=== PATIENT | female | born 1930 | race Caucasian/White ===

== ENCOUNTER 2016-12-30 12:00 | Inpatient (IN) | payer BC, MEDICARE ==
[2016-12-30] VITALS (7 sets, daily range): BP systolic 110–140; BP diastolic 48–96
[~2016-12-30] VITALS: Ht 154.9 cm; Wt 55.3 kg
[~2016-12-30 12:00] MED LIST: ALPHAGAN1 DROP BOTH EYES; ALTACE5 MG ORAL; ASPIRIN EC81 MG ORAL; COLACE100 MG ORAL; CORDARONE200 M1 ORAL; CYMBALTA30 MG ORAL; DORZOLAMIDE HCL10 M1 BOTH EYES; ELIQUIS2.5 MG ORAL; JANUVIA50 MG ORAL; LEVOTHYROXINE75 MCG ORAL; LIPITOR10 MG ORAL; PROTONIX40 MG ORAL; RAMIPRIL5 MG ORAL; ROZEREM8 MG ORAL; SIMVASTATIN40 MG ORAL; TIMOPTIC 0.5%1 DRO1 BOTH EYES; UNOBMED; VITAMIN D1000 UNI1 ORAL; ZETIA10 MG ORAL
[2016-12-30] MEDS ORDERED: METOPROLOL TART25 MG ORAL (12:13)
[2016-12-30] MEDS ORDERED: LASIX20 M1 ORAL (12:13)
[2016-12-30] MEDS ORDERED: MULTIVITAMINS1 EAC8 ORAL (12:13)
[2016-12-30] MEDS ORDERED: CYMBALTA20 MG ORAL (12:13)
--- NOTE | 2016-12-30 12:30 | Emergency Room Report ---
History of Present Illness General Chief Complaint: Multiple Trauma/Fall Present Illness HPI 86 YO Female presents to the ED brought by son c/o multiple recent falls, and found pt. down on ground this am. Son is concerned pt. may have sustained head injury. Pt. is unreliable historian with hx of TIA and embolic events with intermittent lapses in memory. Pt. 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 pt. has hx of DM, HTN, TIA, and liver cirrhosis. Pt currently on blood thinning medications. responsible democrat denies significant changes in mental status from baseline, and denies recent illnesses or fevers. Pt. denies musculoskeletal pain, bruises, CARPENTER, Dizziness, SOB, or CP. Son reports pt. has DM foot ulcer to the top of the right foot for which she was recently seen by roto rooter operator for, and skin tear with bruise to the right ankle and knee. Pt. wears diapers for incontinence. Denies numbness tingling or loss of sensation or gross motor movements of the extremities. Denies Palpitations, Significant changes in mental status, Changes in Vision, Sensation, paresthesias , or a sudden severe headache. (Rachel Holt P.A.) Allergies: Coded Allergies: No Known Allergies (Verified Allergy, Unknown, 03/12/10) Patient History Past Medical History: see triage record Past Surgical History: none Pertinent Family History: none Now: No Immunizations: UTD Reviewed Nursing Documentation: PMH: Agreed, PSxH: Agreed (Rachel Holt) Nursing Documentation-PMH Hx Cardiac Problems: Yes - Heart Murmers Hx Diabetes: Yes - Boarderline diabetic, left prosthatic Hx Gastrointestinal Problems: Yes (Rachel Holt P.AStar) Review of Systems All Other Systems: negative except mentioned in HPI (Rachel Holt P.AStar) Physical Exam Vital Signs Date Time Temp Pulse Resp B/P Pulse Ox O2 Delivery O2 Flow Rate FiO2 12/30/16 12:04 97.5 69 16 123/72 99 Room Air Sp02 EP Interpretation: reviewed, normal General Appearance: no apparent distress, alert, GCS 15, non-toxic Head: atraumatic Eyes: bilateral eye PERRL, bilateral eye normal inspection ENT: hearing grossly normal, normal pharynx, no angioedema, normal voice Neck: full range of motion, supple/symm/no masses Respiratory: lungs clear, normal breath sounds, speaking full sentences Cardiovascular #1: regular rate, rhythm, no edema Gastrointestinal: non tender, soft, no guarding, no rebound Rectal: deferred Genitourinary: normal inspection Musculoskeletal: back normal, normal range of motion, non-tender, no calf tenderness Neurologic: alert, oriented x3, responsive, motor strength/tone normal, sensory intact, speech normal Psychiatric: judgement/insight normal, memory normal, mood/affect normal Skin: normal color, no rash, warm/dry, well hydrated Lymphatic: no adenopathy (Rachel Holt) Medical Decision Making PA Attestation Dr. Howe is my supervising Physician whom patient management has been discussed with. (Rachel Holt) Medicare Attestation The history of Ann Edgar has been reviewed and management options for her have been examined and discussed by Alaina Howe. I have personally examined and interviewed the patient. Patient is alert troponin that will require a repeat followup (ALAINA HOWE D.O.) Diagnostic Impression: Primary Impression: Acute kidney injury Additional Impressions: UTI (urinary tract infection) Qualified Codes: N30.01 - Acute cystitis with hematuria Elevation of cardiac enzymes Non-ST elevation myocardial infarction (NSTEMI), initial care episode ER Course 86 YO Female presents to the ED brought by son c/o multiple recent falls, and found pt. down on ground this am. Son is concerned pt. may have sustained head injury. Pt. is unreliable historian with hx of TIA and embolic events with intermittent lapses in memory. Pt. 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 pt. has hx of DM, HTN, TIA, and liver cirrhosis. Pt currently on blood thinning medications. responsible democrat denies significant changes in mental status from baseline, and denies recent illnesses or fevers. Pt. denies musculoskeletal pain, bruises, CARPENTER, Dizziness, SOB, or CP. Son reports pt. has DM foot ulcer to the top of the right foot for which she was recently seen by roto rooter operator for, and skin tear with bruise to the right ankle and knee. Pt. wears diapers for incontinence. - pt. denies Loss of consciousness. -- Pt is unreliable source. Ddx considered but are not limited to Fracture, dislocation, contusion, concussion Sprain/Strain/Spasm, subdural hematoma/bleed, UTI, cardiac dysrhythmia or pathology. Vital signs: are WNL, pt. is afebrile H&PE are most consistent with increased in falls/instability, possible head trauma, in a pt. with cardiac hx will do cardiac evaluation with CT imaging. ORDERS: - CBC- Unremarkable -CMP- elevated BUN and CR, hypochloremia. -Troponin: ELEVATED 0.66 - CK-MB: ELEVATED -Total CK : WNL -UA: moderate bacteria, WBC's and elevated leukocytes indicating UTI. -EK bpm NSR with 1st degree AV block- no significant increase in KS interval from previous EKG, no acute ST changes per interpretation by Dr. Howe. CT HEAD NO CONTRAST: - X-RAY RIGHT KNEE 3 views: No fracture, dislocation, or soft tissue injury per soft read in the ED by Dr. Howe -CT HEAD NO CONTRAST: No evidence of acute fracture, hemorrhage, or intracranial process Per: official radiology report. - CXR: right lower lobe effusion, improved from previous imaging per preliminary read in the ED by Dr. Howe. ED INTERVENTIONS: - Pt placed on cardiac monitoring. - Rocephin IV for UTI. DISPOSITION: at this time pt. will be admitted to Dr. CLIFFORD, for NSTEMI, SALVATORE, UTI. Dr. CLIFFORD agreed to admit the pt. and to continue pt. care management. Labs Test 12/30/16 12:50 White Blood Count 9.8 K/UL (4.8-10.8) Red Blood Count 4.47 M/UL (4.20-5.40) Hemoglobin 13.0 G/DL (12.0-16.0) Hematocrit 41.2 % (37.0-47.0) Mean Corpuscular Volume 92 FL (80-99) Mean Corpuscular Hemoglobin 29.1 PG (27.0-31.0) Mean Corpuscular Hemoglobin Concent 31.6 G/DL (32.0-36.0) Red Cell Distribution Width 12.8 % (11.6-14.8) Platelet Count 223 K/UL (150-450) Mean Platelet Volume 7.4 FL (6.5-10.1) Neutrophils (%) (Auto) 78.1 % (45.0-75.0) Lymphocytes (%) (Auto) 6.9 % (20.0-45.0) Monocytes (%) (Auto) 11.6 % (1.0-10.0) Eosinophils (%) (Auto) 1.2 % (0.0-3.0) Basophils (%) (Auto) 2.2 % (0.0-2.0) Prothrombin Time 11.1 SEC (9.30-11.50) Prothromb Time International Ratio 1.1 (0.9-1.1) Activated Partial Thromboplast Time 28 SEC (23-33) Urine Color Pale yellow Urine Appearance Cloudy Urine pH 6.5 (4.5-8.0) Urine Specific [place] 1.010 (1.005-1.035) Urine Protein Negative (NEGATIVE) Urine Glucose (UA) Negative (NEGATIVE) Urine Ketones Negative (NEGATIVE) Urine Occult Blood 2+ (NEGATIVE) Urine Nitrite Negative (NEGATIVE) Urine Bilirubin Negative (NEGATIVE) Urine Urobilinogen Normal MG/DL (0.0-1.0) Urine Leukocyte Esterase 3+ (NEGATIVE) Urine RBC 5-10 /HPF (0 - 2) Urine WBC 60-80 /HPF (0 - 2) Urine Squamous Epithelial Cells Many /LPF (NONE/OCC) Urine Bacteria Moderate /HPF (NONE) Sodium Level 136 mEQ/L (135-145) Potassium Level 4.7 mEQ/L (3.4-4.9) Chloride Level 93 mEQ/L (98-107) Carbon Dioxide Level 27 mEQ/L (20-30) Anion Gap 16 (5-15) Blood Urea Nitrogen 30 mg/dL (7-23) Creatinine 1.3 mg/dL (0.5-0.9) Estimat Glomerular Filtration Rate mL/min (>60) Glucose Level 122 mg/dL (74-106) Calcium Level 10.1 mg/dL (8.6-10.2) Total Bilirubin 0.5 mg/dL (0.0-1.2) Aspartate Amino Transf (AST/SGOT) 26 U/L (5-40) Alanine Aminotransferase (ALT/SGPT) 15 U/L (3-33) Alkaline Phosphatase 117 U/L (35-104) Total Creatine Kinase 117 U/L (26-140) Creatine Kinase MB 5.2 ng/mL (< 3.8) Creatine Kinase MB Relative Index 4.4 Troponin I 0.66 ng/mL (<=0.30) Total Protein 7.7 g/dL (6.6-8.7) Albumin 4.3 g/dL (3.5-5.2) Globulin 3.4 g/dL Albumin/Globulin Ratio 1.2 (1.0-2.7) (Rachel Holt) EKG Diagnostic Results Rate: normal - 67 BPM Rhythm: NSR ST Segments: no acute changes PA Scribe Text KS of 222 1st degree AV block no significant KS interval increase from previous EKG per Dr. Howe interpretation. (Rachel Holt) Chest X-Ray Diagnostic Results EP Interpretation: Yes Number of Views: 1 PA Scribe Text right lower lobe effusion per interpretation in ED by Dr. Howe (Rachel Holt) Last Vital Signs Date Time Temp Pulse Resp B/P Pulse Ox O2 Delivery O2 Flow Rate FiO2 12/30/16 12:25 97.4 66 15 119/74 99 Room Air (Rachel Holt) Disposition: ADMITTED INPATIENT Condition: Serious Rachel Holt December 30, 2016 12:30 ALAINA HOWE D.O. December 30, 2016 13:21
[2016-12-30 13:05] LABS: BASOPHILS % (AUTO) 2.2 % (0.0-2.0); EOSINOPHILS % (AUTO) 1.2 % (0.0-3.0); LYMPHOCYTES % (AUTO) 6.9 % (20.0-45.0); MEAN CORPUSCULAR HEMOGLOBIN 29.1 PG (27.0-31.0); MEAN CORPUSCULAR HGB CONC 31.6 G/DL (32.0-36.0); MEAN CORPUSCULAR VOLUME 92 FL (80-99); MEAN PLATELET VOLUME 7.4 FL (6.5-10.1); MONOCYTES % (AUTO) 11.6 % (1.0-10.0); NEUTROPHILS % (AUTO) 78.1 % (45.0-75.0); PLATELET COUNT 223 K/UL (150-450); RED BLOOD COUNT 4.47 M/UL (4.20-5.40); RED CELL DISTRIBUTION WIDTH 12.8 % (11.6-14.8); WHITE BLOOD COUNT 9.8 K/UL (4.8-10.8)
[2016-12-30 13:17] LABS: ALANINE AMINOTRANSFERASE 15 U/L (3-33); ALBUMIN/GLOBULIN RATIO 1.2 (1.0-2.7); ANION GAP 16 (5-15); ASPARTATE AMINO TRANSFERASE 26 U/L (5-40); CALCIUM 10.1 mg/dL (8.6-10.2); CARBON DIOXIDE 27 mEQ/L (20-30); CHLORIDE 93 mEQ/L (98-107); CREATININE 1.3 mg/dL (0.5-0.9); HEMOLYSIS 6; POTASSIUM 4.7 mEQ/L (3.4-4.9); SODIUM 136 mEQ/L (135-145); TOTAL PROTEIN 7.7 g/dL (6.6-8.7)
[2016-12-30 13:19] LABS: TROPONIN I 0.66 ng/mL (<=0.30)
[2016-12-30 13:23] LABS: APPEARANCE,URINE CLOUDY; KETONES,URINE NEGATIVE (NEGATIVE); LEUKOCYTE ESTERASE ,URINE 3+ (NEGATIVE); NITRITE,URINE NEGATIVE (NEGATIVE); PH,URINE 6.5 (4.5-8.0); PROTEIN,URINE NEGATIVE (NEGATIVE); UROBILINOGEN,URINE NORMAL MG/DL (0.0-1.0)
[2016-12-30 13:27] LABS: CKMB 5.2 ng/mL (< 3.8)
[2016-12-30 13:28] LABS: INR 1.1 (0.9-1.1); PROTHROMBIN TIME 11.1 SEC (9.30-11.50)
[2016-12-30 13:33] LABS: BACTERIA,URINE MODERATE /HPF; SQUAMOUS EPITHELIAL CELL,UR MANY /LPF (NONE/OCC); WBC,URINE 60-80 /HPF (0 - 2)
[2016-12-30] MEDS ORDERED: cefTRIAXone 1 GM in D5W 55 ML IVPB ONE (15:45)
--- NOTE | 2016-12-30 16:26 | Geriatric Progress Note ---
Subjective Interval Events Patient living at home with intermittent help, likely insufficient structure and medication supervision. Last seen in office 12/07/16, noted some urinary frequency, labs ordered, but urine not obtained. Patient reportedly doing well, but has not allowed caregiver to be present more than few days a week. Son reports variable medication compliance, ? self-care. Several days ago, patient noted to have dark lesion on top of R 2nd toe near PIP joint. Seen by Dr. Roland, podiatry. Concern for vascular lesion. Being watched expectantly. Apparently patient may have fallen last evening, was found on floor by son this am. Noted to be more disoriented than baseline. Brought to ED. In ED, patient noted to have borderline elevated Troponin, MB, in setting of slightly increased Cr [1.1 -> 1.3]. Also with pyuria, bacteruria. Toe with similar appearance today. Also noted medial R ankle skin tear above malleolus. Excoriated areas on L buttock, along with erythema in perineal area. Mental status has improved since arriving at hospital. Admitted re ? ischemic episode, ? embolic episode, probable UTI with systemic sxs. 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 History of cirrhosis, with heavy ETOH many years ago, none recently. HTN Hyperlipidemia DM with neuropathy , s/p TAVR recently. RLE embolic complication during TAVR in setting of PAD. 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 P. a fib. Old CA. Hx of PUD with hemorrhage. Hx Fe deficiency. Gallstones. B presbycusis. Glaucoma. Meds: Duloxetine 20 daily Levothyroxine 0.075 daily Ramipril 10 daily Combigan 0.2/0.5% 1 gtt OU daily Januvia 25 daily Amiodarone 200 daily Eliquis 5 bid Rozerem 8 qhs prn D3 2000IU daily Zetia 10 daily Lipitor 10 qhs Lasix 20 daily Latanoprost 0.0005% 1 gtt OU qhs. NKA. Alert, slightly passive, misses conversation. Chest clear. CV RR Abd benign, no suprapubic tenderness RLE warm, medial distal skin tear with underlying darkness, no drainage, calor, edema. 2nd toe slightly cool, but no further cyanosis or demarcation. Other skin lesions superficial, associated with excoriation, MASD, no pressure ulceration. Mental status close to recent baseline, slightly slowed with no definite focality. Admit to telemetry, ischemia evaluation per Dr. Brown. Vascular surgery consult requested to evaluate whether urgent treatment indicated for toe vs. conservative watching. Unclear what patient's compliance re Eliquis has been, Dr. Brown has initiated heparin drip in the meantime. Check arterial study of RLE. Coverage with Ceftriaxone pending Urine C&S Gentle IV hydration. Continue outpatient medications otherwise. DNR/DNI confirmed with son. Prognosis, d/c options reviewed in depth with son, dtr-in-law. Dictated #[id number]. Geriatric Geriatric Last 24 Hour Vital Signs Date Time Temp Pulse Resp B/P Pulse Ox O2 Delivery O2 Flow Rate FiO2 12/30/16 16:15 97.6 96 23 120/63 100 12/30/16 12:35 97.4 66 15 119/74 99 Room Air 12/30/16 12:25 97.4 66 15 119/74 99 Room Air 12/30/16 12:04 97.5 69 16 123/72 99 Room Air Laboratory Tests Test 12/30/16 12:50 White Blood Count 9.8 K/UL (4.8-10.8) Red Blood Count 4.47 M/UL (4.20-5.40) Hemoglobin 13.0 G/DL (12.0-16.0) Hematocrit 41.2 % (37.0-47.0) Mean Corpuscular Volume 92 FL (80-99) Mean Corpuscular Hemoglobin 29.1 PG (27.0-31.0) Mean Corpuscular Hemoglobin Concent 31.6 G/DL (32.0-36.0) L Red Cell Distribution Width 12.8 % (11.6-14.8) Platelet Count 223 K/UL (150-450) Mean Platelet Volume 7.4 FL (6.5-10.1) Neutrophils (%) (Auto) 78.1 % (45.0-75.0) H Lymphocytes (%) (Auto) 6.9 % (20.0-45.0) L Monocytes (%) (Auto) 11.6 % (1.0-10.0) H Eosinophils (%) (Auto) 1.2 % (0.0-3.0) Basophils (%) (Auto) 2.2 % (0.0-2.0) H Prothrombin Time 11.1 SEC (9.30-11.50) Prothromb Time International Ratio 1.1 (0.9-1.1) Activated Partial Thromboplast Time 28 SEC (23-33) Urine Color Pale yellow Urine Appearance Cloudy Urine pH 6.5 (4.5-8.0) Urine Specific [place] 1.010 (1.005-1.035) Urine Protein Negative (NEGATIVE) Urine Glucose (UA) Negative (NEGATIVE) Urine Ketones Negative (NEGATIVE) Urine Occult Blood 2+ (NEGATIVE) H Urine Nitrite Negative (NEGATIVE) Urine Bilirubin Negative (NEGATIVE) Urine Urobilinogen Normal MG/DL (0.0-1.0) Urine Leukocyte Esterase 3+ (NEGATIVE) H Urine RBC 5-10 /HPF (0 - 2) H Urine WBC 60-80 /HPF (0 - 2) H Urine Squamous Epithelial Cells Many /LPF (NONE/OCC) H Urine Bacteria Moderate /HPF (NONE) H Sodium Level 136 mEQ/L (135-145) Potassium Level 4.7 mEQ/L (3.4-4.9) Chloride Level 93 mEQ/L (98-107) L Carbon Dioxide Level 27 mEQ/L (20-30) Anion Gap 16 (5-15) H Blood Urea Nitrogen 30 mg/dL (7-23) H Creatinine 1.3 mg/dL (0.5-0.9) H Estimat Glomerular Filtration Rate mL/min (>60) Glucose Level 122 mg/dL (74-106) H Calcium Level 10.1 mg/dL (8.6-10.2) Total Bilirubin 0.5 mg/dL (0.0-1.2) Aspartate Amino Transf (AST/SGOT) 26 U/L (5-40) Alanine Aminotransferase (ALT/SGPT) 15 U/L (3-33) Alkaline Phosphatase 117 U/L (35-104) H Total Creatine Kinase 117 U/L (26-140) Creatine Kinase MB 5.2 ng/mL (< 3.8) H Creatine Kinase MB Relative Index 4.4 Troponin I 0.66 ng/mL (<=0.30) *H Total Protein 7.7 g/dL (6.6-8.7) Albumin 4.3 g/dL (3.5-5.2) Globulin 3.4 g/dL Albumin/Globulin Ratio 1.2 (1.0-2.7) Height (Feet): 5 Height (Inches): 1.00 Weight (Pounds): 125 LUBNA CLIFFORD December 30, 2016 16:26
[2016-12-30] MEDS ORDERED: D5 1/4NS w/KCl 20mEq 1,000 ML IV SCH ×2 (17:00→19:30)
--- NOTE | 2016-12-30 17:00 | Consultation ---
Consult Note Consult Note Cardiology for Dr. Patino Full consult dictated #[id number] RUKHSANA HAZEL December 30, 2016 17:00
[2016-12-30] MEDS ORDERED: Heparin 25,000u/D5W 500ml 500 ML IV SCH ×2 (17:45)
[2016-12-30] MEDS ORDERED: Heparin 5000 units/ml inj IV ONE (17:45)
[2016-12-30] MEDS: Metoprolol 25mg tab ORAL SCH (20:30)
[2016-12-30] MEDS ORDERED: Ramelteon 8mg tab (Approved for Delirium use only) ORAL SCH (21:00)
[2016-12-30] MEDS ORDERED: Acetaminophen 500mg (ES) tab ORAL PRN (22:00)
[2016-12-31] VITALS: BP 91/42
[2016-12-31 01:14] LABS: TROPONIN I < 0.30 ng/mL (<=0.30)
--- NOTE | 2016-12-31 01:31 | Consultation ---
DATE OF CONSULTATION: CARDIOLOGY CONSULTATION: REASON FOR CONSULT: Elevated troponin level. History Of Present Illness: This is an 86-year-old woman with a history of TAVR and a right SSA stent last year, also history of diabetes, hypertension, and previous CVAs, who was brought to the emergency room after being found on the floor by her son. She is a fair historian. She does not recall details of the event. According to her son, he found her partially dressed this morning at about 10:30 hours. She reports that she has had a loss of balance, but at one point, states that she fainted. In the emergency room, labs were done including troponin which was 0.66 and cardiac evaluation was requested. The patient also complains of severe pain in the right second toe. She is status post left BKA following an arterial embolus. PAST MEDICAL HISTORY: As noted above. Also, history of hypothyroidism. MEDICATIONS: The patient is unsure of her medications, however, per the list she is on amiodarone 200 mg daily, apixaban 2.5 mg twice daily, atorvastatin 10 mg daily, brimonidine tartrate eyedrops t.i.d., vitamin D 2000 units daily, Colace 100 mg twice daily, brinzolamide eye drops three times a day, duloxetine 30 mg daily, Zetia 10 mg daily, Lasix 20 mg daily, levothyroxine 75 mcg daily, metoprolol 25 mg b.i.d., multivitamin one daily, Protonix 40 mg daily, Rozerem 8 mg nightly, Januvia 50 mg before breakfast, and timolol eye drops t.i.d. ALLERGIES: No known drug allergies. SOCIAL HISTORY: The patient is a nonsmoker and does not drink alcohol. She lives at home by herself and has assistance part-time from a caregiver. PHYSICAL EXAMINATION: VITAL SIGNS: Blood pressure is 144/72, pulse 69 regular, respirations 16, and afebrile. GENERAL: Alert, well-developed elderly white female, in no acute distress. HEENT: Normocephalic and atraumatic. Pupils are equal, round, and reactive to light. Sclerae anicteric. Oral mucosa are moist. NECK: Supple. There is no jugular venous distention. No carotid bruits. LUNGS: Clear to auscultation bilaterally. HEART: Regular S1 and S2 with a 1/6 systolic ejection murmur heard at the left upper sternal border. No S3, S4, or rubs. ABDOMEN: Soft and nontender. No palpable mass. EXTREMITIES: Left BKA. Right second toe with 0.5 cm round discoloration. Foot is cool. Toe tender. Distal lower extremity pulses diminished on the right. LABORATORY AND DIAGNOSTIC DATA: Troponin 0.66. Potassium 4.3, BUN 30, and creatinine 1.3. Hemoglobin 13, hematocrit 41, and white blood count 9800. EKG shows sinus rhythm at a rate of 68 beats per minute, first-degree AV block, poor R progression V1 to V3. Chest x-ray will review. ASSESSMENT AND RECOMMENDATIONS: This is an 86-year-old woman with multiple medical problems as outlined above, who was admitted with a fall versus syncope. She has a mild elevation of troponin which is likely due to demand ischemia. She has no anginal symptoms and no ischemic EKG changes. She appears possibly with an ischemic right second toe possibly embolic. I would consider changing Eliquis to heparin and would obtain a vascular surgical evaluation. Serial troponin levels and EKGs will be obtained to rule out an acute coronary syndrome though the suspicion is fairly low. An echo will be obtained to assess left ventricular function, rule out left ventricular thrombus and also assess valves. Further recommendations will be made based on her clinical course. Dr. Patino will continue to follow her when he returns on 01/02/2017. Kerri Brown M.D. DR: Jaison JOB#: [id number] CC:
[2016-12-31] MEDS ORDERED: Heparin 25,000u/D5W 500ml 500 ML IV SCH ×2 (02:30→11:30)
--- NOTE | 2016-12-31 02:31 | History and Physical Report ---
DATE OF ADMISSION: 12/30/2016 The patient is admitted on 12/30/2016. IDENTIFICATION: The patient is an 86-year-old woman who was found on the floor of her apartment by her son with increased disorientation. HISTORY OF PRESENT ILLNESS: This is a patient with multiple chronic illnesses, who has done relatively well. She recently, after extended hospitalization and [facility] facility course, returned to her apartment where she initially had full-time care, but subsequently has downgraded that to part-time care. With this downgrading, there has been concern the patient may not have adequate supervision and medication compliance at home. However, the patient was reported to have been doing relatively well. She was last seen in the office on 12/07/2016. During that visit, there was a notation of increased urinary frequency without dysuria. Laboratories were ordered including urine studies, but when laboratories were completed apparently a urine has not been obtained possibly due to inability to comply with the collection on the part of the patient. In any event, the patient still had no specific complaints until the middle of last week when she was noted to have a dark small ulcerative type lesion on the top of her right second toe near the PIP joint. She was referred to Dr. Melany Roland, podiatric solar consultant who evaluated the patient and felt that there might be an element of ischemia in the setting of prior angioplasty and known peripheral arterial disease. However, she felt the lesion was sufficiently benign looking with adequate warmth to the foot and no clear evidence of a significant volume of ischemia that it could be managed expectantly with local therapy applied to the ulceration. Apparently, last evening when the patient was alone, she may have fallen. She reports this, although her details are sufficiently inconsistent to make reliance on any specific details problematic. This morning, she was found on the floor by her son. He noted her to be more disoriented than her baseline with some hallucinatory or delusional ideation. Because of these changes, the patient was brought to the emergency department. In the emergency department, the patient is noted to have a borderline elevated troponin, borderline MB fraction in the setting of slightly increased creatinine with baseline of 1.1, elevated to 1.3. She was also noted to have urinalysis with pyuria, leukocyte esterase, and bacteriuria. She had evidence of the toe lesion, which appeared fairly similar to the prior presentation and there was also a newly noted right medial ankle skin tear just above malleolus with underlying darkness suggesting bleeding associated with the lesion. There is no discharge, edema, or focal warmth associated. Skin lesions also included perineal erythema and excoriated areas primarily on the left buttock, but also on the right. The patient's mental status improved somewhat during her evaluation in the emergency department. Given these various findings, the patient was admitted for evaluation of possible cardiac ischemic episode, possible embolic and peripheral arterial insufficiency episode, and probable urinary tract infection with likely systemic symptoms. Currently, in the emergency department, the patient was noted to be alert, perhaps slightly slowed from her baseline, but not in any distress with a fairly normal speech pattern and no clear evidence of significant disorientation beyond her baseline. The patient denies chest pain or palpitations. She denied dysuria or urinary symptoms. She denied difficulty with gastrointestinal symptoms or change in bowel or bladder pattern. She also denied respiratory symptoms. Again, all these denials may be somewhat suspect, given the patient's patchy cognitive loss. The patient's son is unaware of any additional medical changes beyond what is described above. PAST MEDICAL HISTORY: 1. 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 Consider element of prior alcohol use. Consider element of possible primary degenerative component. 2. History of cirrhosis without hepatocellular enzyme abnormalities with a distant history of heavy alcohol use many years ago, but no significant use recently. 3. Hypertension. 4. Hyperlipidemia. 5. Diabetes mellitus with history of neuropathic symptoms. 6. Aortic stenosis, status post recent TAVR. 7. Right lower extremity embolic complication during TAVR in the setting of established peripheral arterial disease requiring angioplasty. 8. 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 9. Paroxysmal atrial fibrillation. 10. History of old myocardial infarction. 11. 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 12. History of peptic ulcer disease with hemorrhage. 13. History of iron deficiency requiring Venofer infusions. 14. Gallstones. 15. Bilateral presbycusis. 16. Glaucoma. MEDICATIONS: Current medications, duloxetine 20 mg daily, levothyroxine 0.075 mg daily, ramipril 10 mg daily, Combigan 0.2/0.5% one drop OU daily, Januvia 25 mg daily, amiodarone 200 mg daily, Eliquis 5 mg twice a day, Rozerem 8 mg at bedtime as needed, vitamin D3 2000 units daily, Zetia 10 mg daily, Lipitor 10 mg at bedtime, Lasix 20 mg daily, and latanoprost 0.0005% one drop each eye at bedtime. ALLERGIES: No known allergies. 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 She lived in [place], moving to [place] in 1999 after her left below the knee amputation. She has been for some 25 years. Her worked in the foreign service and they traveled extensively in the past. The patient smoked for 44 years, one and half packs per day, which was discontinued when her was diagnosed with lung cancer. She has signed a post with DNR and DNI status, but will request conventional therapies. FAMILY HISTORY: Notable for diabetes mellitus in her mother. Her father was exposed to gas in World War I and at the age of 47. She has three children, who reportedly alive and well. REVIEW OF SYSTEMS: On detailed review of systems, due to the patient's current mental status, details are not obtainable. Her responses are generally as described above. PHYSICAL EXAMINATION: VITAL SIGNS: The patient's blood pressure is 120/63, heart rate was 96, respiratory rate was 23, but subsequently 16, temperature 97.6, and oxygen saturation is 100% on room air. GENERAL: The patient is a well-developed woman, with a somewhat flattened affect and slightly slowed, but not in acute distress. HEENT: Head and neck revealed normocephalic and atraumatic skull. Sclerae appeared anicteric. The oropharynx revealed minimally dry mucosa. NECK: Revealed normal range of motion without masses. CHEST: Clear to auscultation. CARDIOVASCULAR: Revealed a regular rhythm. ABDOMEN: Revealed normal bowel sounds. Soft and nontender without masses or organomegaly. No suprapubic tenderness was elicited. EXTREMITIES: Revealed the prior below the knee amputation on the left side. Right side revealed a warm foot with the skin tear and the second toe dorsal ulceration as described above. Her other skin lesions included her superficial buttocks erythema and excoriation, which appear more consistent with moisture associated damage and physical excoriations and pressure ulceration. NEUROLOGIC: Detailed examination was not attempted, however, speech was consistent with baseline in terms of word choice and fluency and her mentation also appears to be grossly compatible with baseline. There is no clear evidence of any acute focality. IMPRESSION: The patient presents with what appears to be an episode of altered mentation associated with fall. The most likely underlying etiology is probably urinary tract infection with some systemic symptomatology including delirium and generalized weakness, given that there were some initial symptoms as long as three weeks ago and also given the lack of impressive findings or any other series on her history and examination. The urinary tract infection will be treated empirically with ceftriaxone, which was begun in the emergency room pending culture results. Of note is that the patient has a borderline leukocytosis, but no significant elevation of white count making a severe septic infection much likely despite the systemic symptoms that are hypothesized. The patient does have mild elevation of cardiac markers and the possibility of an ischemic event needs to be considered. The patient was initially evaluated by Dr. Brown, who actually feels that the chances of an ischemic event are relatively low and that any component seen is probably mild demand ischemia associated with the infectious episode. The patient's toe is also of concern. Dr. Brown is concerned about embolic phenomenon with some impending progressive ischemia. After discussion and the additional history from the patient's son, the patient may have inadvertently been fairly noncompliant with her Eliquis as well as her other medications. It was decided to begin the patient on intravenous heparin for the time being until the overall situation is more completely evaluated. An arterial study of the right lower extremity has been ordered and Vascular Surgery consultation has been requested. The patient will be gently hydrated, given the fact that she likely had no oral intake at least overnight and her usual home medications will be continued except for the Eliquis and the diuretic. The patient's situation was discussed in detail with the patient, her son, and her [id number]. There was confirmation of the patient's DNR, DNI status per her prior election and in addition, there was an extended discussion about the patient's current functional capabilities and the need for increased supervision as well as potential long-term discharge options. The patient and family concur with the present approach at this time. Additional interventions will be considered depending on the patient's response to therapy. Marlon Bauman M.D. DR: RENNY JOB#: [id number] CC: ALEX
[2016-12-31 04:05] VITALS: BP 97/38
[2016-12-31] MEDS ORDERED: sitaGLIPtin 25mg tab ORAL SCH (06:30)
[2016-12-31 08:00] VITALS: BP 103/47
[2016-12-31] MEDS: Metoprolol 25mg tab ORAL SCH (09:00)
[2016-12-31] MEDS ORDERED: Vitamin D 1000 IU Tab ORAL SCH (09:00)
[2016-12-31] MEDS ORDERED: Multivitamin w/Minerals tab ORAL SCH (09:00)
[2016-12-31] MEDS ORDERED: Amiodarone 200mg tab ORAL SCH (09:00)
[2016-12-31] MEDS ORDERED: Vitamin B-12 500mcg tab ORAL SCH (09:00)
--- NOTE | 2016-12-31 09:15 | Diagnostic Imaging Report ---
Indication: Headache Technique: Contiguous 5 mm thick transaxial imaging of the head obtained in a Siemens Sensation [address] scanner. Soft tissue and bone windows generated. Total Dose length Product (DLP): [address] Dose Index Volume (CTDIvol): 70.38 mGy Comparison: 02/10/16 Findings: There is mild prominence of the ventricles, basal cisterns, and cerebral sulci consistent with atrophy. Mild, nonspecific, white matter hypoattenuation is noted throughout the brain consistent with chronic small vessel disease. A few parenchymal calcifications are present within the brain. These are not seen previously. Findings are nonspecific. Ossifications could be due to cysticercosis or old granulomatous disease. There is no midline shift, edema, acute hemorrhage, mass effect, or abnormal extra-axial fluid collections. Bones and extra osseous soft tissues are unremarkable. Impression: No acute intracranial bleed, mass effect or edema. Mild atrophy of the brain. Nonspecific white matter hypoattenuation probably due to chronic small vessel disease. Calcifications in the brain parenchyma. Nonspecific. Cysticercosis versus old granulomatous disease. Dr. Melendez has communicated the preliminary results to the Emergency Department. There are no significant discrepancies. The CT scanner at [facility] is accredited by the [employer] and the scans are performed using dose optimization techniques as appropriate to a performed exam including Automatic Exposure control.
[2016-12-31] MEDS ORDERED: Norco 5mg/325mg tab ORAL PRN (10:15)
[2016-12-31 10:28] LABS: TROPONIN I < 0.30 ng/mL (<=0.30)
--- NOTE | 2016-12-31 10:30 | Diagnostic Imaging Report ---
Indication: Pain 3 views of the right knee were obtained. Findings: No acute fracture, malalignment, or joint effusion are identified. Joint space is relatively well-maintained. Bone mineralization is diffusely decreased. Impression: No acute injury
--- NOTE | 2016-12-31 10:35 | Diagnostic Imaging Report ---
Indication: Chest Pain Comparison: 05/29 16 A single view chest radiograph was obtained. Findings: No definite infiltrate or pulmonary vascular congestion identified. There is a stent in the area of the aortic root/valve. The heart is enlarged. There is a probable hiatal hernia. The aorta is mildly enlarged consistent with atherosclerotic vascular disease. The bones are osteopenic. Impression: No acute disease
[2016-12-31] MEDS: Brimonidine 0.2% Opth Sol BOTH EYES SCH ×2 (10:39→13:32)
[2016-12-31] MEDS: Timolol 0.5% Op Soln 2.5ml BOTH EYES SCH ×2 (10:39→13:32)
[2016-12-31] MEDS ORDERED: Heparin 5000 units/ml inj IV ONE (11:30)
[2016-12-31 12:00] VITALS: BP 98/43
[2016-12-31] MEDS ORDERED: Norco 10mg/325mg tab ORAL PRN (13:30)
--- NOTE | 2016-12-31 13:55 | Geriatric Progress Note ---
Assessment/Plan Problems: (1) Claudication of lower extremity (2) Critical lower limb ischemia (3) UTI (urinary tract infection) (4) Elevation of cardiac enzymes (5) Severe calcific aortic valve stenosis (6) Moderate aortic regurgitation (7) Diabetes mellitus type 2, noninsulin dependent (8) HTN (hypertension) (9) Paroxysmal atrial fibrillation (10) Liver cirrhosis (11) Hyperlipidemia (12) History of tobacco use (13) Diabetic neuropathy (14) Coronary arteriosclerosis (15) Diabetic neuropathy associated with type 2 diabetes mellitus (16) History of alcohol use (17) History of gastrointestinal bleeding Assessment/Plan Metabolic encephalopathy, UTI appear to be responding to tx. ? newly symptomatic RLE ischemia, ? embolic or thrombotic due to progression of disease +/- inadvertent non-compliance. Increase analgesia. Increase fluids, hold metoprolol due to low bp, low hr to attempt improved perfusion. Await vascular evaluation. Continue other tx. Discussed with staff. Reviewed with patient and son, dtr-in-law at bedside. Await potential transfer to [facility] for evaluation of endovascular procedure. Discussed with: patient, family, hospital staff Subjective Interval Events Patient c/o new episodic pain, cramplike, localizing to area just distal to popliteal fossa. Preliminary report of arterial study was critical ischemia at rest. Note current heart rates and bp on low side. Patient did not eat well this am. No SOB, chest pain. Mentation appears close to normal. Spoke with Dr. Stevens, who will see in vascular surgery consultation. Dr. Brown has placed on transfer list. Constitutional: Reports: chills, fever Respiratory: Reports: shortness of breath Cardiovascular: Reports: chest pain Gastrointestinal/Abdominal: Reports: abdominal pain Genitourinary: Reports: dysuria Geriatric Geriatric Last 24 Hour Vital Signs Date Time Temp Pulse Resp B/P Pulse Ox O2 Delivery O2 Flow Rate FiO2 12/31/16 12:00 56 12/31/16 12:00 97.8 58 19 98/43 99 Room Air 12/31/16 09:00 54 105/47 12/31/16 08:00 51 12/31/16 08:00 97.8 56 20 103/47 100 Room Air 12/31/16 04:05 96.6 53 19 97/38 100 Room Air 12/31/16 04:00 53 12/31/16 00:00 98.1 57 17 91/42 94 Room Air 12/31/16 00:00 58 12/30/16 20:30 64 97/50 12/30/16 20:04 97.7 62 18 110/48 96 Room Air 12/30/16 20:00 62 12/30/16 17:30 97.2 60 18 111/53 98 Room Air 12/30/16 16:49 68 17 140/96 98 Room Air 12/30/16 16:49 97.6 68 17 140/96 98 Room Air 12/30/16 16:15 97.6 96 23 120/63 100 12/30/16 14:35 65 16 119/74 100 Room Air Intake and Output 12/30/16 12/31/16 19:00 07:00 Intake Total 13.281 ml 742.811 ml Balance 13.281 ml 742.811 ml Intake Oral 60 ml IV Total 13.281 ml 682.811 ml # Voids 3 Laboratory Tests Test 12/31/16 00:30 12/31/16 09:40 12/31/16 10:40 Activated Partial Thromboplast Time 122 SEC (23-33) H 45 SEC (23-33) H Troponin I < 0.30 ng/mL (<=0.30) < 0.30 ng/mL (<=0.30) Current Medications Medications (Trade) Dose Ordered Sig/Esther Route PRN Reason Start Time Stop Time Status Last Admin Dose Admin Acetaminophen 1000 mg 1,000 mg Q6H PRN ORAL Mild Pain/Temp > 100.5 12/30/16 22:00 01/29/17 21:59 12/31/16 04:33 Acetaminophen/ Hydrocodone Bitart (Ecorse 10/325) 1 ea Q4H PRN ORAL For Pain 12/31/16 13:30 01/07/17 13:29 UNV Amiodarone HCl (Cordarone) 200 mg DAILY ORAL 12/31/16 09:00 01/30/17 08:59 Atorvastatin Calcium (Lipitor) 10 mg BEDTIME ORAL 12/30/16 21:00 01/29/17 20:59 12/30/16 20:26 Brimonidine Tartrate (Alphagan) 1 drop TID BOTH EYES 12/31/16 09:00 01/30/17 08:59 12/31/16 13:32 Ceftriaxone Sodium/Dextrose (Rocephin/D5W) 55 ml @ 110 mls/hr Q24H IVPB 12/31/16 16:00 01/07/17 15:59 Cyanocobalamin 1000 mcg 1,000 mcg DAILY ORAL 12/31/16 09:00 01/30/17 08:59 12/31/16 10:37 Dextrose/ Electrolytes (D5 0.25%NS w/ KCl 20mEq) 1,000 ml @ 75 mls/hr [id number] IV 12/31/16 19:30 01/30/17 19:29 UNV Duloxetine HCl (Cymbalta) 20 mg DAILY ORAL 12/31/16 09:00 01/30/17 08:59 12/31/16 10:37 EZETIMIBE (Zetia) 10 mg BEDTIME ORAL 12/30/16 21:00 01/29/17 20:59 12/30/16 21:23 Heparin Sodium/ Dextrose 500 ml @ 12.174 mls/ hr adjust per protocol IV 12/31/16 11:30 01/30/17 11:29 12/31/16 11:56 Latanoprost (Xalatan) 1 drop BEDTIME BOTH EYES 12/30/16 21:00 01/29/17 20:59 12/30/16 20:26 Levothyroxine Sodium (Synthroid) 75 mcg ACBREAKFAST ORAL 12/31/16 06:30 01/30/17 06:29 12/31/16 06:14 Multivitamins Therapeutic (Therapeutic Multivitamin) 1 ea DAILY ORAL 12/31/16 09:00 01/30/17 08:59 12/31/16 10:38 Pantoprazole (Protonix) 40 mg DAILY ORAL 12/31/16 09:00 01/30/17 08:59 12/31/16 10:37 Ramelteon (Rozerem) 8 mg QHS ORAL 12/30/16 21:00 01/29/17 20:59 12/30/16 20:26 Sitagliptin Phosphate (Januvia) 25 mg ACBREAKFAST ORAL 12/31/16 06:30 01/30/17 06:29 12/31/16 06:14 Timolol Maleate (Timoptic 0.5% Op Soln) 1 drop TID BOTH EYES 12/31/16 09:00 01/30/17 08:59 12/31/16 13:32 Vitamin D (Vitamin D) 2,000 intlu DAILY ORAL 12/31/16 09:00 01/30/17 08:59 12/31/16 10:37 Height (Feet): 5 Height (Inches): 1.00 Weight (Pounds): 122 General Appearance: alert, non-toxic Head: normocephalic Eyes: bilateral anicteric ENT: normal voice Neck: full range of motion, no mass Respiratory: lungs clear Cardiovascular: regular rate, rhythm Gastrointestinal: normal bowel sounds, non tender, soft, no mass, no organomegaly, non-distended Musculoskeletal: other - no clear area of tenderness to palpation. Palpable venous vasculature without tenderness. R foot lesion about the same. Edema: no edema noted Generalized LUBNA CLIFFORD December 31, 2016 13:55
--- NOTE | 2016-12-31 15:03 | Cardiology Progress Note ---
Assessment/Plan Status: not improved, deteriorating Status Narrative Mrs Edgar is an 86 yo woman w hx of , s/p TAVR, PVD, s/p L BKA who was adm w/ fall vs syncopal episode. She had a mild troponin elevation on adm - likely demand ischemia. Noninvasive vascular studies were performed on the RLE to evaluate R second toe pain. R common femoral occlusion was reported. She was evaluated by Dr. Margarito Stevens/ vascular surgery and started on iv heparin. Assessment/Plan discussed w/ Drs. Stevens and Mitul. She will be transferred to [facility] for emergency vascular surgical intervention. Subjective ROS Limited/Unobtainable: No Subjective Events noted. Mrs. Edgar c/o R foot pain. Objective Last 24 Hour Vital Signs Date Time Temp Pulse Resp B/P Pulse Ox O2 Delivery O2 Flow Rate FiO2 12/31/16 12:00 56 12/31/16 12:00 97.8 58 19 98/43 99 Room Air 12/31/16 09:00 54 105/47 12/31/16 08:00 51 12/31/16 08:00 97.8 56 20 103/47 100 Room Air 12/31/16 04:05 96.6 53 19 97/38 100 Room Air 12/31/16 04:00 53 12/31/16 00:00 98.1 57 17 91/42 94 Room Air 12/31/16 00:00 58 12/30/16 20:30 64 97/50 12/30/16 20:04 97.7 62 18 110/48 96 Room Air 12/30/16 20:00 62 12/30/16 17:30 97.2 60 18 111/53 98 Room Air 12/30/16 16:49 68 17 140/96 98 Room Air 12/30/16 16:49 97.6 68 17 140/96 98 Room Air 12/30/16 16:15 97.6 96 23 120/63 100 General Appearance: WD/WN, alert, mild distress EENT: PERRL/EOMI Neck: supple, no JVD Rhythm: NSR Cardiovascular: normal rate, regular rhythm, systolic murmur - i /vi LAVELLE at LSB. no s3. s4 Respiratory/Chest: lungs clear Abdomen: non tender, soft Extremities: other - L BKA. R foot cool, discolored. no palp pulse femoral- dp Intake and Output 12/30/16 12/31/16 19:00 07:00 Intake Total 13.281 ml 742.811 ml Balance 13.281 ml 742.811 ml Intake Oral 60 ml IV Total 13.281 ml 682.811 ml # Voids 3 Laboratory Tests Test 12/31/16 00:30 12/31/16 09:40 12/31/16 10:40 Activated Partial Thromboplast Time 122 SEC (23-33) H 45 SEC (23-33) H Troponin I < 0.30 ng/mL (<=0.30) < 0.30 ng/mL (<=0.30) RUKHSANA HAZEL December 31, 2016 15:03
[2016-12-31 16:00] VITALS: BP 100/45
[2016-12-31] MEDS ORDERED: cefTRIAXone 1 GM in D5W 55 ML IVPB SCH (16:00)
[2016-12-31] MEDS ORDERED: Tubing IV Secondary IV ONE (17:14)
--- NOTE | 2016-12-31 17:37 | Geriatric Progress Note ---
Assessment/Plan Problems: (1) Claudication of lower extremity (2) Critical lower limb ischemia (3) UTI (urinary tract infection) (4) Elevation of cardiac enzymes (5) Severe calcific aortic valve stenosis (6) Moderate aortic regurgitation (7) Diabetes mellitus type 2, noninsulin dependent (8) HTN (hypertension) (9) Paroxysmal atrial fibrillation (10) Liver cirrhosis (11) Hyperlipidemia (12) History of tobacco use (13) Diabetic neuropathy (14) Coronary arteriosclerosis (15) Diabetic neuropathy associated with type 2 diabetes mellitus (16) History of alcohol use (17) History of gastrointestinal bleeding Subjective Interval Events Transfer/DCSummary Dictated #[id number]. Geriatric Geriatric Last 24 Hour Vital Signs Date Time Temp Pulse Resp B/P Pulse Ox O2 Delivery O2 Flow Rate FiO2 12/31/16 16:00 50 12/31/16 16:00 97.9 51 20 100/45 100 Room Air 12/31/16 12:00 56 12/31/16 12:00 97.8 58 19 98/43 99 Room Air 12/31/16 09:00 54 105/47 12/31/16 08:00 51 12/31/16 08:00 97.8 56 20 103/47 100 Room Air 12/31/16 04:05 96.6 53 19 97/38 100 Room Air 12/31/16 04:00 53 12/31/16 00:00 98.1 57 17 91/42 94 Room Air 12/31/16 00:00 58 12/30/16 20:30 64 97/50 12/30/16 20:04 97.7 62 18 110/48 96 Room Air 12/30/16 20:00 62 Intake and Output 12/30/16 12/31/16 19:00 07:00 Intake Total 13.281 ml 742.811 ml Balance 13.281 ml 742.811 ml Intake Oral 60 ml IV Total 13.281 ml 682.811 ml # Voids 3 Laboratory Tests Test 12/31/16 00:30 12/31/16 09:40 12/31/16 10:40 Activated Partial Thromboplast Time 122 SEC (23-33) H 45 SEC (23-33) H Troponin I < 0.30 ng/mL (<=0.30) < 0.30 ng/mL (<=0.30) Height (Feet): 5 Height (Inches): 1.00 Weight (Pounds): 122 LUBNA CLIFFORD December 31, 2016 17:37
[2016-12-31] MEDS ORDERED: D5 1/4NS w/KCl 20mEq 1,000 ML IV SCH (19:30)
--- NOTE | 2017-01-01 00:15 | Consultation ---
DATE OF CONSULTATION: REFERRING PHYSICIAN: I was asked to see this patient by Dr. Marlon Bauman to evaluate right leg ischemia. 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 In July 2016, she had an aortic valve replacement vascularly and tolerated that fairly well. However, postoperatively, she developed a right leg embolus and most likely an embolus to her carotid circulation. She had developed a stroke, most likely a right hemispheric stroke and had significant recovery during the past many months. Her right leg required a stent placement, but the ischemia was resolved. The day before admission to [facility], she was found on the floor unconscious and brought to the ER. It was noted that she had a cool right foot with decreased sensation and motor. Duplex scanning was carried out and documented that she had a right common femoral occlusion with monophasic flow. PAST MEDICAL HISTORY: Diabetes mellitus and now a hypotension. She has had a stroke and has not had evidence of coronary artery disease. PHYSICAL EXAMINATION: GENERAL: She is responsive and can converse. NECK: There are no carotid bruits. HEART: Cardiac rate is 54 and rhythm is regular. There are occasional premature beats. ABDOMEN: Examination of the abdomen does not reveal abdominal mass or tenderness. EXTREMITIES: There is a well-healed left leg amputation below the knee. On the right, no pulses are felt whatsoever including the right femoral pulse. The right foot is ruborous and . She cannot move or dorsiflex the right foot. NEUROLOGIC: She does respond to questions appropriately. ASSESSMENT AND PLAN: This lady has acute ischemia of her right leg and needs immediate angiography and surgery. Thank you. Margarito Stevens M.D. DR: ANAHI JOB#: [id number] CC:
--- NOTE | 2017-01-01 07:01 | Discharge Summary ---
DATE OF ADMISSION: 12/30/2016 DATE OF DISCHARGE: 12/31/2016 DIAGNOSES: 1. Critical right lower extremity ischemia with increasing ischemic pain at rest. 2. Possible embolic area of infarction to the dorsum of the right second toe. 3. Noninvasive arterial duplex study of the right lower extremity exhibiting diffuse severe stenosis with areas of monophasic waveform and proximal posterior tibial occlusion with some distal reconstitution. 4. Apparent urinary tract infection on empiric ceftriaxone therapy. 5. Metabolic encephalopathy, multifactorial. 6. Baseline mild cognitive impairment versus very early dementia primarily cerebrovascular etiology consider element of prior alcohol abuse. Consider element of possible primary degenerative component. 7. History of cirrhosis without hepatocellular enzyme abnormalities with distant history of heavy alcohol use. 8. Hypertension. 9. Hyperlipidemia. 10. Diabetes mellitus with neuropathic symptoms. 11. Aortic stenosis status post recent transcatheter aortic valve replacement. 12. Right lower extremity embolic complication during transcatheter aortic valve replacement in the setting of established peripheral arterial disease requiring angioplasty. 13. 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 14. Paroxysmal atrial fibrillation. 15. History of old myocardial infarction. 16. 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 17. History of peptic ulcer disease with hemorrhage. 18. History of iron deficiency requiring Venofer infusion. 19. Gallstones. 20. Bilateral presbycusis . 21. Glaucoma. HISTORY OF PRESENT ILLNESS: The patient is an 86-year-old woman who was found on the floor in her apartment by her son with increased disorientation. Details of the history and physical examination are per the dictation of 12/30/2016. HOSPITAL COURSE: The patient was admitted and placed on ceftriaxone empirically for apparent urinary tract infection. She appeared to improve considerably with her mental status approaching her baseline. Because of uncertainty about her compliance with Eliquis, the patient was placed on intravenous heparin drip. Given the concerns about possible ischemia to the right lower extremity, arterial duplex study was done which revealed a 76 to 90% stenosis virtually throughout the main vessels of the lower extremity with evidence of monophasic waves and area of the proximal posterior tibial artery which is found to be occluded with some distal reconstitution. On the evening of the patient's admission and increasing through the next morning, the patient began to complain of a moderately intense somewhat cramp like pain in the right lower extremity. She had difficulty localizing the pain, but somewhat generally described the symptoms as being in the area of the posterior leg just distal to the popliteal fossa. Beside the right second toe dorsal skin lesion which appeared potentially embolic, the patient also had a skin tear on the medial surface of the ankle just above the malleolus, which appeared dry, maroonish in color with no discharge, edema, or warmth. Given the findings on the vascular examination, a vascular surgery consultation was requested. The patient was seen by Dr. Margarito Stevens, who felt that the patient was exhibiting findings consistent with acute limb-threatening ischemia with decreased sensation and decreased range of motion in the foot. He felt that emergent angiography with potential endovascular or open surgical procedure would be required to try and salvage the leg, which would be extremely important in terms of mobility given the patient's pre-existing left [id number] amputation. There was extended discussion with the patient and her family as well as Dr. Stevens, Dr. Brown, multiple calls and arrangements were made through the [facility] and contact with the vascular surgery service at [facility]. The patient is now being transferred to [facility] as a higher level of care to both undergo imaging and also potentially a surgical procedure either open or endovascular. On the day of the transfer, the patient was noted to have somewhat diminished blood pressures and also heart rate in the 50s. Therefore, her metoprolol was discontinued since it was felt that this could be potentially adversely affecting the perfusion of the extremity. The patient is still on amiodarone for rate and rhythm control. The patient was also given somewhat more intravenous fluids with a rate of 75 mL an hour. This was done both to raise intravascular volume and hopefully the perfusion pressures, but also because the patient has had poor intake since getting to the hospital. The transfer is being done to the [facility] in an ACLS ambulance so that the heparin drip can be continued. Dr. Brown, covering for Dr Patino, will be the admitting physician at [facility] with appropriate interventional and vascular surgery support. As stated, the situation has been discussed in detail with the patient, her son, and her [id number]. The patient is DNR/DNI but does wish to maintain her functional mobility and quality of life with respect to mobility as much as possible. On admission, there was also some concern about the possibility of a cardiac ischemic event. However, Dr. Brown felt there were no significant EKG changes and the mild elevation of troponin and MB fraction likely represented mild demand ischemia associated with her other problems. As stated the patient continues on empiric ceftriaxone, pending culture results to further narrow therapy for the urinary tract infection. Marlon Bauman M.D. DR: Nestor JOB#: [id number] CC: ALEX
--- NOTE | 2017-01-02 07:57 | Cardiology Report ---
APPROVED REPORT EKG Measurement Heart [id number] [place] [id number] Sinus rhythm with 1st degree AV block Anteroseptal infarct, age undetermined Abnormal ECG
--- NOTE | 2017-01-02 12:36 | Diagnostic Imaging Report ---
APPROVED REPORT CPT Code: 78264 Symptoms Rest Pain : PAD Comments: Rt medial ulcer above the medial malleolus Risk Factors TIA/CVA History Cardiac Disease VELOCITY MEASUREMENTS AND DOPPLER WAVEFORM ANALYSIS RIGHTcm/secWaveformSeverityLEFTcm/secWaveformSeverity Com Fem Art. 68MonophasicSevere 76-99%Com Fem Art. Prof Fem Art. 68MonophasicSevere 76-99%Prof Fem Art. Fem Art Prox. 27ContinuousSevere 76-99%Fem Art Prox. Fem Art Mid. 28ContinuousSevere 76-99%Fem Art Mid. Fem Art Dist. 22ContinuousSevere 76-99%Fem Art Dist. Pop Art Prox. 21ContinuousSevere 76-99%Pop Art Prox. HEEL GUMMER Mid. OccludedPTA Mid. HEEL GUMMER Dist. 20ContinuousSevere 76-99%HEEL GUMMER Dist. EMIR Prox. 15ContinuousSevere 76-99%EMIR Prox. EMIR Dist. 14ContinuousSevere 76-99%EMIR Dist. RIGHT LEG: Common femoral artery waveform analysis is abnormal, suggestive of iliac arterial occlusive disease. Color flow duplex sonography reveals diffuse plaque throughout the superficial femoral and popliteal arteries. There is evidence of occlusion within the mid posterior tibial artery. The tibioperoneal trunk was not well visualized. The distal posterior tibial and dorsalis pedis arteries are also heavily calcified. Doppler tibial artery waveform analysis is compatible with critical ischemia at rest. EDE Marques was informed of abnormal results at 21:45 hrs.
== END 2016-12-31 17:15 | disposition short-term general hospital (02) | DRG 300 ==
LOC: EMR 13:10 → 2W 14:16 → EDBEDREQ 14:37
DX: I74.3 Embolism and thrombosis of arteries of the lower extremities (principal); N39.0 Urinary tract infection, site not specified; E11.40 Type 2 diabetes mellitus with diabetic neuropathy, unspecified; E11.621 Type 2 diabetes mellitus with foot ulcer; I10 Essential (primary) hypertension; E78.5 Hyperlipidemia, unspecified; I48.0 Paroxysmal atrial fibrillation; H40.9 Unspecified glaucoma; H91.13 Presbycusis, bilateral; Z86.73 Personal history of transient ischemic attack (TIA), and cerebral infarction without residual deficits; Z79.01 Long term (current) use of anticoagulants; Z66 Do not resuscitate; L97.519 Non-pressure chronic ulcer of other part of right foot with unspecified severity; I25.2 Old myocardial infarction; Z89.512 Acquired absence of left leg below knee; Z91.81 History of falling; Z95.2 Presence of prosthetic heart valve; I70.235 Atherosclerosis of native arteries of right leg with ulceration of other part of foot; Z87.891 Personal history of nicotine dependence; I99.8 Other disorder of circulatory system
CPT/HCPCS: 36415; 70450; 71010; 80053; 81003; 82550; 82553; 84484; 85025; 85610; 85730; 87086; 93005; 93926

== ENCOUNTER 2017-04-13 12:45 | Inpatient (IN) | payer BC, MEDICARE ==
[~2017-04-13] VITALS: Ht 165.1 cm; Wt 63.5 kg
[~2017-04-13 12:45] MED LIST changes: +CYMBALTA20 MG ORAL; +LASIX20 M1 ORAL; +METOPROLOL TART25 MG ORAL; +MULTIVITAMINS1 EAC8 ORAL
--- NOTE | 2017-04-13 14:01 | Diagnostic Imaging Report ---
Indication: Dyspnea Comparison: 12/30/16 A single view chest radiograph was obtained. Findings: Hiatal hernia is present. No definite infiltrate or pulmonary vascular congestion identified. The heart is enlarged. The aorta is mildly enlarged consistent with atherosclerotic vascular disease. The bones are osteopenic. Impression: No acute disease
[2017-04-13 14:06] VITALS: BP 124/55
[2017-04-13 14:06] LABS: MEAN CORPUSCULAR HEMOGLOBIN 23.2 PG (27.0-31.0); MEAN CORPUSCULAR HGB CONC 29.2 G/DL (32.0-36.0); MEAN CORPUSCULAR VOLUME 79 FL (80-99); MEAN PLATELET VOLUME 5.9 FL (6.5-10.1); PLATELET COUNT 302 K/UL (150-450); RED BLOOD COUNT 2.84 M/UL (4.20-5.40); RED CELL DISTRIBUTION WIDTH 17.2 % (11.6-14.8); WHITE BLOOD COUNT 7.9 K/UL (4.8-10.8)
[2017-04-13 14:14] LABS: INR 1.1 (0.9-1.1); PROTHROMBIN TIME 11.4 SEC (9.30-11.50)
[2017-04-13 14:19] LABS: ALANINE AMINOTRANSFERASE 10 U/L (3-33); ALBUMIN/GLOBULIN RATIO 1.1 (1.0-2.7); ANION GAP 12 (5-15); ASPARTATE AMINO TRANSFERASE 15 U/L (5-40); CALCIUM 9.5 mg/dL (8.6-10.2); CARBON DIOXIDE 23 mEQ/L (20-30); CHLORIDE 106 mEQ/L (98-107); CREATININE 1.7 mg/dL (0.5-0.9); HEMOLYSIS 0; POTASSIUM 4.7 mEQ/L (3.4-4.9); SODIUM 141 mEQ/L (135-145); TOTAL PROTEIN 6.9 g/dL (6.6-8.7)
[2017-04-13 14:20] LABS: TROPONIN I < 0.30 ng/mL (<=0.30)
[2017-04-13 14:26] LABS: ANISOCYTOSIS 1+; BAND NEUTROPHILS % (MANUAL) 0 % (0-8); BASOPHILS % (MANUAL) 1 % (0-2); EOSINOPHILS % (MANUAL) 3 % (0-3); HYPOCHROMASIA 1+; LYMPHOCYTES % (MANUAL) 16 % (20-45); MICROCYTES 1+; NEUTROPHILS % (MANUAL) 64 % (45-75); PLATELET ESTIMATE ADEQUATE; PLATELET MORPHOLOGY NORMAL; TOTAL CELLS COUNTED 100
[2017-04-13 14:32] LABS: APPEARANCE,URINE CLOUDY; KETONES,URINE NEGATIVE (NEGATIVE); LEUKOCYTE ESTERASE ,URINE 3+ (NEGATIVE); NITRITE,URINE NEGATIVE (NEGATIVE); PH,URINE 6.5 (4.5-8.0); PROTEIN,URINE 2+ (NEGATIVE); UROBILINOGEN,URINE NORMAL MG/DL (0.0-1.0)
--- NOTE | 2017-04-13 14:32 | Emergency Room Report ---
History of Present Illness General Chief Complaint: Abnormal Labs Source: Patient, Family Member, Medical Record Present Illness HPI 86-year-old female history of CAD, TAVR, history of peptic ulcer disease, history of chronic anemia requiring iron transfusions, sent in by primary care doctor for low H&H. Patient states that she has felt fine, and does not have any complaints. Denying any vomiting abdominal pain Black or bloody stools. Denying any fever chills chest pain or shortness of breath. Patient's parker states that she has required iron transfusions in the past but not any blood transfusions Unknown loss endoscopy or colonoscopy Allergies: Coded Allergies: No Known Allergies (Verified Allergy, Unknown, 03/12/10) Patient History Past Medical History: see triage record Past Surgical History: none Pertinent Family History: none Last Menstrual Period: N/A Reviewed Nursing Documentation: PMH: Agreed, PSxH: Agreed Nursing Documentation-PMH Hx Cardiac Problems: Yes - Heart Murmers Hx Diabetes: Yes - Boarderline diabetic, left prosthatic Hx Gastrointestinal Problems: Yes Review of Systems All Other Systems: negative except mentioned in HPI Physical Exam Vital Signs Date Time Temp Pulse Resp B/P (MAP) Pulse Ox O2 Delivery O2 Flow Rate FiO2 04/13/17 13:02 97.0 53 14 118/43 100 Room Air Sp02 EP Interpretation: reviewed, normal General Appearance: normal inspection, well appearing, no apparent distress, alert, GCS 15, non-toxic Head: normocephalic, atraumatic Eyes: bilateral eye normal inspection, bilateral eye PERRL, bilateral eye EOMI ENT: normal ENT inspection, normal pharynx, normal voice, moist mucus membranes Neck: normal inspection, full range of motion, supple Respiratory: normal inspection, lungs clear, normal breath sounds, no respiratory distress, no retraction, no wheezing, speaking full sentences, chest symmetrical Cardiovascular #1: normal inspection, regular rate, rhythm, no edema, normal capillary refill Cardiovascular #2: 2+ radial (R), 2+ radial (L) Gastrointestinal: normal inspection, non tender, soft, non-distended, no guarding Musculoskeletal: normal inspection, back normal, normal range of motion, non- tender Neurologic: normal inspection, alert, oriented x3, responsive, motor strength/ tone normal, sensory intact, normal gait, speech normal Psychiatric: normal inspection, judgement/insight normal, memory normal Skin: normal inspection, normal color, no rash, warm/dry, well hydrated, normal turgor Procedures Critical Care Time Critical Care Time 40 minutes of CC time 86 YO F with anemia VS: Slight bradycardia, normal blood pressure Airway patent. Not hypoxic. PLAN: IV access, labs, type and screen, blood transfusion Telemetry versus [facility] CC time also includes review of labs, review of EMR and discussion with patient' s, d/w hospitalist CC could include dosing of pressors, additional Abx CC time does not include procedures Medical Decision Making Diagnostic Impression: Primary Impression: Anemia Additional Impression: UTI (urinary tract infection) ER Course 86 yo female with low H&H DDX: Anemia secondary to anemia of chronic disease, renal disease, peptic ulcer disease There are no signs or symptoms of any active bleeding at this time. Patient is hemodynamically stable. Plan: Obtain labs, ua, EKG Type and screen, blood transfusion ER course: Patient has been monitored during ED stay, HD stable Low H&H found it will transfuse 2 units UA positive for infection antibiotics given Transfusion performed in ED Disposition: Patient is to be admitted to [facility] D/W hospitalist Dr Marlon Clifford Please note that this Emergency Department Report was dictated using [employer] technology software, occasionally this can lead to erroneous entry secondary to interpretation by the dictation equipment. Laboratory Tests Test 04/13/17 13:52 04/13/17 14:18 White Blood Count 7.9 K/UL (4.8-10.8) Red Blood Count 2.84 M/UL (4.20-5.40) L Hemoglobin 6.6 G/DL (12.0-16.0) *L Hematocrit 22.6 % (37.0-47.0) L Mean Corpuscular Volume 79 FL (80-99) L Mean Corpuscular Hemoglobin 23.2 PG (27.0-31.0) L Mean Corpuscular Hemoglobin Concent 29.2 G/DL (32.0-36.0) L Red Cell Distribution Width 17.2 % (11.6-14.8) H Platelet Count 302 K/UL (150-450) Mean Platelet Volume 5.9 FL (6.5-10.1) L Neutrophils (%) (Auto) % (45.0-75.0) Lymphocytes (%) (Auto) % (20.0-45.0) Monocytes (%) (Auto) % (1.0-10.0) Eosinophils (%) (Auto) % (0.0-3.0) Basophils (%) (Auto) % (0.0-2.0) Differential Total Cells Counted 100 Neutrophils % (Manual) 64 % (45-75) Lymphocytes % (Manual) 16 % (20-45) L Monocytes % (Manual) 16 % (1-10) H Eosinophils % (Manual) 3 % (0-3) Basophils % (Manual) 1 % (0-2) Band Neutrophils 0 % (0-8) Platelet Estimate Adequate Platelet Morphology Normal Hypochromasia 1+ Anisocytosis 1+ Microcytosis 1+ Prothrombin Time 11.4 SEC (9.30-11.50) Prothrombin Time INR 1.1 (0.9-1.1) PTT 32 SEC (23-33) Sodium Level 141 mEQ/L (135-145) Potassium Level 4.7 mEQ/L (3.4-4.9) Chloride Level 106 mEQ/L (98-107) Carbon Dioxide Level 23 mEQ/L (20-30) Anion Gap 12 (5-15) Blood Urea Nitrogen 31 mg/dL (7-23) H Creatinine 1.7 mg/dL (0.5-0.9) H Estimate Glomerular Filtration Rate mL/min (>60) Glucose Level 101 mg/dL (74-106) Calcium Level 9.5 mg/dL (8.6-10.2) Total Bilirubin < 0.2 mg/dL (0.0-1.2) Aspartate Amino Transferase (AST) 15 U/L (5-40) Alanine Aminotransferase (ALT) 10 U/L (3-33) Alkaline Phosphatase 86 U/L (35-104) Troponin I < 0.30 ng/mL (<=0.30) Total Protein 6.9 g/dL (6.6-8.7) Albumin 3.7 g/dL (3.5-5.2) Globulin 3.2 g/dL Albumin/Globulin Ratio 1.1 (1.0-2.7) Urine Color Yellow Urine Appearance Cloudy Urine pH 6.5 (4.5-8.0) Urine Specific [place] 1.010 (1.005-1.035) Urine Protein 2+ (NEGATIVE) H Urine Glucose (UA) Negative (NEGATIVE) Urine Ketones Negative (NEGATIVE) Urine Occult Blood 3+ (NEGATIVE) H Urine Nitrite Negative (NEGATIVE) Urine Bilirubin Negative (NEGATIVE) Urine Urobilinogen Normal MG/DL (0.0-1.0) Urine Leukocyte Esterase 3+ (NEGATIVE) H Urine RBC 2-4 /HPF (0 - 2) H Urine WBC Tntc /HPF (0 - 2) H Urine Squamous Epithelial Cells Few /LPF (NONE/OCC) Urine Bacteria Moderate /HPF (NONE) H Last Vital Signs Date Time Temp Pulse Resp B/P (MAP) Pulse Ox O2 Delivery O2 Flow Rate FiO2 04/13/17 14:06 97.0 54 15 124/55 99 Room Air Disposition: ADMITTED INPATIENT Condition: Serious Referrals: MARLON CLIFFORD (PCP) Moshe Orosco M.D. Apr 13, 2017 14:32
[2017-04-13 14:43] LABS: BACTERIA,URINE MODERATE /HPF; SQUAMOUS EPITHELIAL CELL,UR FEW /LPF (NONE/OCC); WBC,URINE TNTC /HPF (0 - 2)
[2017-04-13] MEDS ORDERED: cefTRIAXone 1 GM in NS 55 ML IVPB ONE (14:45)
[2017-04-13] MEDS ORDERED: UNOBMED (14:54)
[2017-04-13 18:21] VITALS: BP 152/64
--- NOTE | 2017-04-13 18:51 | Geriatric Progress Note ---
Subjective Interval Events Patient found to have decreased Hct, Fe stores, prior guaiac + stools, hx of peptic ulcer with GI Bleeding, admitted for transfusion and stabilization. Also found to have pyuria suggestive of UTI. Patient's only symptom has been weakness. Son notes intermittent confusion. No n/v, change in appetite reported. PE without acute change. Apparent chronic blood loss with markedly depressed Fe stores on Eliquis therapy. Consider recurrent GI bleed, consider hemolysis. Other numerous medical problems appear adequately controlled on present tx. Hold Eliquis. GI evaluation. Further laboratories. Transfuse 2u prbc. Venofer course. Ceftriaxone initiated. Discussed with son. DNR/DNI confirmed. Dictated #[id number] Geriatric Geriatric Last 24 Hour Vital Signs Date Time Temp Pulse Resp B/P (MAP) Pulse Ox O2 Delivery O2 Flow Rate FiO2 04/13/17 18:25 97.2 51 16 152/64 99 Nasal Cannula 2.0 04/13/17 18:21 97.2 51 16 152/64 99 Nasal Cannula 2.0 04/13/17 14:06 97.0 54 15 124/55 99 Room Air 04/13/17 13:02 97.0 53 14 118/43 100 Room Air Intake and Output 04/13/17 04/14/17 19:00 07:00 Intake Total 55 ml Balance 55 ml Intake IV Total 55 ml # Voids 1 Laboratory Tests Test 04/13/17 13:52 04/13/17 14:18 White Blood Count 7.9 K/UL (4.8-10.8) Red Blood Count 2.84 M/UL (4.20-5.40) L Hemoglobin 6.6 G/DL (12.0-16.0) *L Hematocrit 22.6 % (37.0-47.0) L Mean Corpuscular Volume 79 FL (80-99) L Mean Corpuscular Hemoglobin 23.2 PG (27.0-31.0) L Mean Corpuscular Hemoglobin Concent 29.2 G/DL (32.0-36.0) L Red Cell Distribution Width 17.2 % (11.6-14.8) H Platelet Count 302 K/UL (150-450) Mean Platelet Volume 5.9 FL (6.5-10.1) L Neutrophils (%) (Auto) % (45.0-75.0) Lymphocytes (%) (Auto) % (20.0-45.0) Monocytes (%) (Auto) % (1.0-10.0) Eosinophils (%) (Auto) % (0.0-3.0) Basophils (%) (Auto) % (0.0-2.0) Differential Total Cells Counted 100 Neutrophils % (Manual) 64 % (45-75) Lymphocytes % (Manual) 16 % (20-45) L Monocytes % (Manual) 16 % (1-10) H Eosinophils % (Manual) 3 % (0-3) Basophils % (Manual) 1 % (0-2) Band Neutrophils 0 % (0-8) Platelet Estimate Adequate Platelet Morphology Normal Hypochromasia 1+ Anisocytosis 1+ Microcytosis 1+ Prothrombin Time 11.4 SEC (9.30-11.50) Prothromb Time International Ratio 1.1 (0.9-1.1) Activated Partial Thromboplast Time 32 SEC (23-33) Sodium Level 141 mEQ/L (135-145) Potassium Level 4.7 mEQ/L (3.4-4.9) Chloride Level 106 mEQ/L (98-107) Carbon Dioxide Level 23 mEQ/L (20-30) Anion Gap 12 (5-15) Blood Urea Nitrogen 31 mg/dL (7-23) H Creatinine 1.7 mg/dL (0.5-0.9) H Estimat Glomerular Filtration Rate mL/min (>60) Glucose Level 101 mg/dL (74-106) Calcium Level 9.5 mg/dL (8.6-10.2) Total Bilirubin < 0.2 mg/dL (0.0-1.2) Aspartate Amino Transf (AST/SGOT) 15 U/L (5-40) Alanine Aminotransferase (ALT/SGPT) 10 U/L (3-33) Alkaline Phosphatase 86 U/L (35-104) Troponin I < 0.30 ng/mL (<=0.30) Total Protein 6.9 g/dL (6.6-8.7) Albumin 3.7 g/dL (3.5-5.2) Globulin 3.2 g/dL Albumin/Globulin Ratio 1.1 (1.0-2.7) Urine Color Yellow Urine Appearance Cloudy Urine pH 6.5 (4.5-8.0) Urine Specific [place] 1.010 (1.005-1.035) Urine Protein 2+ (NEGATIVE) H Urine Glucose (UA) Negative (NEGATIVE) Urine Ketones Negative (NEGATIVE) Urine Occult Blood 3+ (NEGATIVE) H Urine Nitrite Negative (NEGATIVE) Urine Bilirubin Negative (NEGATIVE) Urine Urobilinogen Normal MG/DL (0.0-1.0) Urine Leukocyte Esterase 3+ (NEGATIVE) H Urine RBC 2-4 /HPF (0 - 2) H Urine WBC Tntc /HPF (0 - 2) H Urine Squamous Epithelial Cells Few /LPF (NONE/OCC) Urine Bacteria Moderate /HPF (NONE) H Current Medications Medications (Trade) Dose Ordered Sig/Esther Route PRN Reason Start Time Stop Time Status Last Admin Dose Admin Amiodarone HCl (Cordarone) 200 mg DAILY ORAL 04/14/17 09:00 05/14/17 08:59 UNV Atorvastatin Calcium (Lipitor) 10 mg BEDTIME ORAL 04/13/17 21:00 05/13/17 20:59 UNV Ceftriaxone Sodium 1 gm/ Dextrose 55 ml @ 110 mls/hr Q24H IVPB 04/13/17 18:15 04/20/17 18:14 UNV Cyanocobalamin (Vitamin B-12) 500 mcg DAILY ORAL 04/14/17 09:00 05/14/17 08:59 UNV Dextrose (Dextrose 50%) STAT PRN IV Hypoglycemia 04/13/17 18:15 05/13/17 18:14 UNV Docusate Sodium (Colace) 100 mg TWICE A DAY ORAL 04/14/17 09:00 05/14/17 08:59 UNV Dorzolamide/ Timolol (Cosopt) 1 drop TWICE A DAY BOTH EYES 04/14/17 09:00 05/14/17 08:59 UNV Duloxetine HCl (Cymbalta) 20 mg DAILY ORAL 04/14/17 09:00 05/14/17 08:59 UNV EZETIMIBE (Zetia) 10 mg BEDTIME ORAL 04/13/17 21:00 05/13/17 20:59 UNV Iron Sucrose 100 mg/Sodium Chloride 60 ml @ 240 mls/hr BEDTIME IVPB 04/13/17 21:00 04/17/17 21:14 UNV Latanoprost (Xalatan) 1 drop BEDTIME BOTH EYES 04/13/17 21:00 05/13/17 20:59 UNV Levothyroxine Sodium (Synthroid) 75 mcg DAILY@0630 ORAL 04/14/17 06:30 05/14/17 06:29 UNV Metoprolol Tartrate (Lopressor) 25 mg Q12HR ORAL 04/13/17 21:00 05/13/17 20:59 UNV Pantoprazole (Protonix) 40 mg DAILY ORAL 04/14/17 09:00 05/14/17 08:59 UNV Ramipril (Altace) 10 mg DAILY ORAL 04/14/17 09:00 05/14/17 08:59 UNV Sitagliptin Phosphate (Januvia) 25 mg ACBREAKFAST ORAL 04/14/17 06:30 05/14/17 06:29 UNV Timolol Maleate (Timoptic 0.5% Op Soln) 1 drop TWICE A DAY BOTH EYES 04/14/17 09:00 05/14/17 08:59 UNV Vitamin D (Vitamin D) 2,000 intlu DAILY ORAL 04/14/17 09:00 05/14/17 08:59 UNV Height (Feet): 5 Height (Inches): 2.00 Weight (Pounds): 140 LUBNA CLIFFORD Apr 13, 2017 18:51
--- NOTE | 2017-04-13 19:28 | Cardiology Progress Note ---
Assessment/Plan Assessment/Plan tavr pvd s/p group captain paf diastolic failuer iron deff anemia hs of embolic cvas hold anit plt an eliquis for now watch on tele iron infusion stool studies sidney downing [id number] Objective Last 24 Hour Vital Signs Date Time Temp Pulse Resp B/P (MAP) Pulse Ox O2 Delivery O2 Flow Rate FiO2 04/13/17 18:25 97.2 51 16 152/64 99 Nasal Cannula 2.0 04/13/17 18:21 97.2 51 16 152/64 99 Nasal Cannula 2.0 04/13/17 14:06 97.0 54 15 124/55 99 Room Air 04/13/17 13:02 97.0 53 14 118/43 100 Room Air Intake and Output 04/13/17 04/14/17 19:00 07:00 Intake Total 55 ml Balance 55 ml Intake IV Total 55 ml # Voids 1 Laboratory Tests Test 04/13/17 13:52 04/13/17 14:18 White Blood Count 7.9 K/UL (4.8-10.8) Red Blood Count 2.84 M/UL (4.20-5.40) L Hemoglobin 6.6 G/DL (12.0-16.0) *L Hematocrit 22.6 % (37.0-47.0) L Mean Corpuscular Volume 79 FL (80-99) L Mean Corpuscular Hemoglobin 23.2 PG (27.0-31.0) L Mean Corpuscular Hemoglobin Concent 29.2 G/DL (32.0-36.0) L Red Cell Distribution Width 17.2 % (11.6-14.8) H Platelet Count 302 K/UL (150-450) Mean Platelet Volume 5.9 FL (6.5-10.1) L Neutrophils (%) (Auto) % (45.0-75.0) Lymphocytes (%) (Auto) % (20.0-45.0) Monocytes (%) (Auto) % (1.0-10.0) Eosinophils (%) (Auto) % (0.0-3.0) Basophils (%) (Auto) % (0.0-2.0) Differential Total Cells Counted 100 Neutrophils % (Manual) 64 % (45-75) Lymphocytes % (Manual) 16 % (20-45) L Monocytes % (Manual) 16 % (1-10) H Eosinophils % (Manual) 3 % (0-3) Basophils % (Manual) 1 % (0-2) Band Neutrophils 0 % (0-8) Platelet Estimate Adequate Platelet Morphology Normal Hypochromasia 1+ Anisocytosis 1+ Microcytosis 1+ Prothrombin Time 11.4 SEC (9.30-11.50) Prothromb Time International Ratio 1.1 (0.9-1.1) Activated Partial Thromboplast Time 32 SEC (23-33) Sodium Level 141 mEQ/L (135-145) Potassium Level 4.7 mEQ/L (3.4-4.9) Chloride Level 106 mEQ/L (98-107) Carbon Dioxide Level 23 mEQ/L (20-30) Anion Gap 12 (5-15) Blood Urea Nitrogen 31 mg/dL (7-23) H Creatinine 1.7 mg/dL (0.5-0.9) H Estimat Glomerular Filtration Rate mL/min (>60) Glucose Level 101 mg/dL (74-106) Calcium Level 9.5 mg/dL (8.6-10.2) Total Bilirubin < 0.2 mg/dL (0.0-1.2) Aspartate Amino Transf (AST/SGOT) 15 U/L (5-40) Alanine Aminotransferase (ALT/SGPT) 10 U/L (3-33) Alkaline Phosphatase 86 U/L (35-104) Troponin I < 0.30 ng/mL (<=0.30) Total Protein 6.9 g/dL (6.6-8.7) Albumin 3.7 g/dL (3.5-5.2) Globulin 3.2 g/dL Albumin/Globulin Ratio 1.1 (1.0-2.7) Urine Color Yellow Urine Appearance Cloudy Urine pH 6.5 (4.5-8.0) Urine Specific [place] 1.010 (1.005-1.035) Urine Protein 2+ (NEGATIVE) H Urine Glucose (UA) Negative (NEGATIVE) Urine Ketones Negative (NEGATIVE) Urine Occult Blood 3+ (NEGATIVE) H Urine Nitrite Negative (NEGATIVE) Urine Bilirubin Negative (NEGATIVE) Urine Urobilinogen Normal MG/DL (0.0-1.0) Urine Leukocyte Esterase 3+ (NEGATIVE) H Urine RBC 2-4 /HPF (0 - 2) H Urine WBC Tntc /HPF (0 - 2) H Urine Squamous Epithelial Cells Few /LPF (NONE/OCC) Urine Bacteria Moderate /HPF (NONE) H DAWNA MURRAY Apr 13, 2017 19:28
[2017-04-13] MEDS ORDERED: cefTRIAXone 1 GM in D5W 55 ML IVPB SCH (20:00)
[2017-04-13] MEDS ORDERED: Ramelteon 8mg tab (Approved for Delirium use only) ORAL SCH (21:00)
[2017-04-13] MEDS: Metoprolol 25mg tab ORAL SCH (21:00)
[2017-04-13] MEDS ORDERED: Iron Sucrose 100 MG in NS 55 ML IVPB SCH (21:00)
[2017-04-13 21:02] VITALS: BP 155/62
[2017-04-14 00:10] VITALS: BP 136/41
[2017-04-14 04:20] VITALS: BP 131/62
--- NOTE | 2017-04-14 05:00 | Consultation ---
DATE OF CONSULTATION: CARDIOLOGY CONSULTATION CONSULTING PHYSICIAN: Juan Patino M.D. REFERRING PHYSICIAN: Marlon Bauman M.D. REASON FOR REFERRAL: Anticoagulation, antiplatelet agents, and anemia. HISTORY OF PRESENT ILLNESS: The patient is a very pleasant 86-year-old female, who is known to me, she has multiple medical problems, cardiac as delineated below. I saw her not too long ago in the office. During that visit, we ordered some blood tests and subsequently the levels of blood tests did show significant anemia. Dr. Bauman has been trying to get her to come to the hospital, but she has been rather hesitant until today, she finally came in to the hospital. She really does not have any chest pain or pressure. No PND or orthopnea. No palpitations, dizziness, or whatsoever. In fact, even on the day of her office visit a few days ago, she said she was feeling okay. She has been living in a board and care facility. She really is not ambulatory and she has not had any issues with pain, pressure, tightness, or heaviness in her chest. No PND or orthopnea. She does not have any dizziness on standing and she does not have any heart pounding or palpitations. Her physical activity again is very limited, sitting in a chair or lying in bed. PAST MEDICAL HISTORY: Extensive and includes history of transfemoral transcatheter aortic valve replacement with Medtronic Evolut heart valve on June 2016, chronic diastolic dysfunction, coronary disease, nonobstructive, diabetes mellitus type 2, hypertension, hyperlipidemia, atrial fibrillation paroxysmal in nature, history of stroke, embolic history of hypothyroidism, gastroesophageal reflux disease, iron deficiency anemia, questionable liver cirrhosis based on CT scan findings, history of retinal bleed previously while in the hospital after percutaneous intervention of the femoral artery, visual field defect secondary to recurrent embolic post TAVR, bronchospasm, 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 She has also history of old lacunar infarction, urinary tract infection, systemic hypertension, hyperlipidemia, glaucoma, hypothyroidism, osteoporosis, rheumatic heart disease, nonsteroidal-induced gastroscopy with iron deficiency anemia, decreased hearing acuity, amputation, complication of embolic event from a myocardial infarction supposedly. She has history of diverticulitis and previously. ALLERGIES: She has no known drug allergies. SOCIAL HISTORY: She does not smoke at the present time. Does not drink at the present time. She has a history of those previously some 25 to 45 years ago. Very supportive family, but she lives in a board and care facility at the present time. REVIEW OF SYSTEMS: Gastrointestinal: She denies. Genitourinary: She denies. Pulmonary: She denies. Constitutional: She denies. Neurologic: She denies. PHYSICAL EXAMINATION: GENERAL: Shows to be elderly female, in no respiratory distress. NECK: Supple. No jugular venous distention. LUNGS: Clear to auscultation and percussion. CARDIAC: Regular rate and rhythm. Systolic ejection murmur is noted. No RV lifts, heaves, or thrills noted. ABDOMEN: Soft and nontender. Positive bowel sounds. EXTREMITY: There is no edema on the right leg. The left has amputation on previous occasion. NEUROLOGIC: She is awake, alert, responsive, and in no apparent respiratory distress. LABORATORY VALUES: White count is 7.9, hemoglobin 6.6, and a platelet count of 302,000. Sodium is 141, potassium 4.7, chloride 106, bicarb 23, BUN 31, creatinine 1.7, and a glucose of 101. Troponin first set is negative. Her INR is 1.1 and PTT of 32. Urinalysis, too numerous to count WBC. A chest x-ray performed in the emergency room today shows no acute disease. ASSESSMENT: 1. Anemia, etiology to be determined. 2. History of aortic stenosis, status post transcatheter aortic valve replacement. 3. History of cerebrovascular accident. 4. Chronic diastolic heart failure. 5. Atrial fibrillation, paroxysmal in nature. 6. Peripheral vascular disease, status post percutaneous intervention. PLAN: Dr. Bauman, this patient was seen in cardiac consultation. The patient has been on amiodarone and Eliquis for the time being. She is on aspirin to be continued. She is not on Plavix. She has significant anemia and iron deficiency as well, which needs to be evaluated. She may require iron infusion during this hospitalization and anticoagulation medication may need to be on hold until stool occult blood results are available. Beta-blockers to be continued. Ramipril to be continued and she is on medication as well. Again noted on her recent laboratory values of significant iron deficiency with iron level of 14 with a TIBC of 370 with 4% saturation consistent with iron-deficiency anemia. Again, I do not mind holding her antiplatelet agents for a day or two, anticoagulation certainly until the results of her stool studies are back. Otherwise, medications should be continued. Dr. Bauman, thank you for allowing me to participate in the care of this patient. Juan Patino M.D. DR: JULIUS JOB#: [id number] CC:
--- NOTE | 2017-04-14 05:45 | History and Physical Report ---
DATE OF ADMISSION: 04/13/2017 IDENTIFICATION DATA: The patient is an 86-year-old woman who is admitted with findings of significant anemia, markedly depleted iron stores and pyuria suggestive of urinary tract infection. HISTORY OF PRESENT ILLNESS: This is a patient with a number of chronic medical problems who actually has been functionally relatively stable. Because of her multiple issues and the onset of some element of cognitive dysfunction, the patient was admitted several months ago to [facility] after living in an apartment with intermittent care for a number of years. She was noted to have evidence of guaiac-positive stools in the month of February, repeat laboratories were ordered, but apparently never obtained. The patient saw Dr. Patino in Cardiology evaluation last week and was noted to have a significant anemia with hematocrit of 22% and iron saturation of 4%. The patient was contacted to present to the emergency room for further evaluation to rule out active bleeding and also to transfuse given her significant history of coronary artery disease and significant valvular disease with dysrhythmia. She delayed the presentation until today, but did present to the emergency room. In the emergency room, the patient is only symptomatic with generalized weakness and fatigue. The emergency room laboratories confirmed significant anemia as well as pyuria suggestive of urinary tract infection. The patient is admitted for transfusion to stabilize her hematocrit, for possible Venofer infusion, and for treatment of urinary tract infection and also for evaluation of whether there is an acute bleed that requires additional aggressive therapy. As stated above, the patient currently denies any specific symptomatology. The patient's son reports that she appeared to be physically relatively well, but does evidence of episodes of intermittent forgetfulness or confusion. Both the patient and her son deny episodes of significant shortness of breath, chest pain, abdominal discomfort. There is no reported nausea, vomiting, or specific change in appetite. The patient's son does note that she will have intermittent ulcerations involving the lower extremities, specifically the right lower extremity where it is known that she has significant vascular disease. It should also be noted that the patient is on Eliquis for paroxysmal atrial fibrillation and that she is status post stenting for coronary artery disease and a transcatheter aortic valve replacement for aortic stenosis as well as significant peripheral arterial disease requiring prior left lower extremity amputation and treatment of critical right lower extremity ischemia in December and January of this year. PAST MEDICAL HISTORY: 1. 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 The patient obviously could have a contributing component of primary degenerative process and there also may be intermittent delirium associated with her various acute processes. 2. Hypertension. 3. Dyslipidemia. 4. Diabetes mellitus with neuropathic symptoms. 5. Paroxysmal atrial fibrillation. 6. History of old myocardial infarction. 7. Aortic stenosis, status post TAVR. 8. 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 9. Recent episode of critical right lower extremity ischemia status post thrombolysis and/or clot removal and stenting. 10. Recurrent urinary tract infections. 11. History of cirrhosis without hepatocellular enzyme abnormality, apparently associated with distant history of heavy alcohol use. 12. 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 13. History of peptic ulcer disease with hemorrhage. 14. History of iron-deficiency requiring Venofer infusion. 15. Gallstones. 16. Bilateral presbycusis. 17. Glaucoma. CURRENT MEDICATIONS: The patient's current medications include amiodarone 200 mg daily, atorvastatin 10 mg at every bedtime, cyanocobalamin 500 mg daily, Colace 100 mg b.i.d., Cymbalta 20 mg daily, Zetia 10 mg at every bedtime, levothyroxine 75 mcg daily, metoprolol tartrate 25 mg twice a day, Protonix 40 mg daily, ramipril 10 mg daily, and Januvia 25 mg daily. The patient is also on multiple eyedrops for glaucoma. The exact dosing seems to be somewhat confused now since there appears to be some duplication on the current medication list. For the time being, the patient will be placed on Cosopt one drop OU twice a day, Xalatan one drop OU at every bedtime and timolol one drop OU b.i.d. The patient has also been initiated on ceftriaxone 1 gram daily in the emergency room and she is taking vitamin D 2000 units daily. ALLERGIES: No known allergies. 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 She previously lived in [place] and moving to [place] in 1999 after her left [id number] amputation. She has been for some 25 years. Her previously worked in the foreign service and they had traveled extensively in the past. The patient smoked for 44 years, one and a half packs per day, which was discontinued when her was diagnosed with lung cancer. She has signed a POLST with DNR and DNI status, but requests conventional therapies for acute illnesses. FAMILY HISTORY: Notable for diabetes mellitus in her mother. Her father was exposed to gas in World War I and at the age 47. She has three children, who are reportedly alive and well. REVIEW OF SYSTEMS: As stated above, the patient denies general symptomatology except for excessive fatigue. Her responses may not be entirely reliable, but she denies chest pain, shortness of breath, chest pressure or palpitations, abdominal discomfort, nausea, vomiting, or change in bowel habits. She denies melena or bright red blood in the stools. She denies specific urinary tract symptoms although she states she wears a diaper at home. She denies recurrent ulceration in her left lower extremity stump and does not note any specific right lower extremity ulceration at the present time. She is concerned that she is able to sleep well, but denies any specific problems with sleep at home. PHYSICAL EXAMINATION: VITAL SIGNS: The patient's blood pressure is 152/64, heart rate is 51 and regular, respiratory rate is 16, temperature 97.2, and oxygen saturations 99% on 2 liters, although prior normal saturation was documented on room air. GENERAL: The patient is a well-developed elderly woman, not in acute distress, appearing somewhat flat in affect, but generally aware of her circumstances and denying any specific symptomatology. HEAD AND NECK: Reveals normocephalic and atraumatic skull. Sclerae are somewhat pale, but anicteric. The oropharynx appears somewhat dry. The neck shows normal range of motion without masses. CHEST: Reveals clear breath sounds. CARDIAC: Reveals a systolic murmur and a somewhat slow rhythm, which is regular. ABDOMEN: Reveals normal bowel sounds. Soft and nontender without masses or organomegaly appreciated. The extremities are status post left BKA and right lower extremity does not reveal significant distal edema at the present time. NEUROLOGICAL: The patient is alert with a mental status relatively compatible with her baseline and with no evidence of specific focality. LABORATORY DATA: The patient's initial laboratory data reveals white count of 7.9, hematocrit 22.6% with an MCV of 79, and platelet count of 302. Hematocrit is compatible with her hematocrit obtained approximately a week ago by Dr. Patino. She had laboratories documented 4% iron saturation at that time as well. INR is 1.1 and PTT is 32. Sodium 141, potassium 4.7, chloride 106, bicarb 23, BUN 31, and creatinine 1.7. Total bilirubin is less than 0.2. Liver enzymes and alkaline phosphatase are unremarkable. Troponins less than 0.3. Total protein 6.9 and albumin 2.7. Urinalysis shows 2+ protein, 3+ occult blood, 3+ leukocyte esterase, 2 to 4 RBCs, too numerous to count white cells, and moderate bacteria. A chest x-ray reveals no evidence of acute infiltrates or vascular redistribution. There was a hiatal hernia visible on the x-ray. IMPRESSION: The patient presents with significant anemia, which in the presence of her known peripheral arterial disease, cerebral vascular disease, aortic valvular disease, and coronary artery disease with prior myocardial infarction and stroke is likely both partially accounting for her fatigue symptoms, but also placing her at risk for acute vascular event. As result, she will be transfused two units of packed red blood cells and also given additional Venofer for iron supplementation. Because of the significant pyuria, ceftriaxone has also been begun empirically. The cause of the patient's anemia is not entirely clear, she has a prior history of peptic ulcer disease and gastrointestinal bleeding and a prior stool was positive for occult blood raising the possibility of chronic low-grade gastrointestinal bleeding, gastrointestinal consultation has been requested from Dr. Eduar Brunner. The possibility of hemolysis due to some abnormalities associated with her prosthetic aortic valve is a consideration, but seems unlikely. Another source of hemolysis is not likely either, however urine for hemosiderin will be obtained as well as an LDH. The intermittent disorientation and confusion that the patient's son's report may in fact be associated with intermittent acute processes such as iron-deficiency anemia and urinary tract infection and the patient will be observed in this regard to see if there is significant improvement during the resolution of these acute processes. Her overall situation was discussed in detail with the patient and her son and her DNR/DNI status was confirmed as well as agreement with the current approach to therapy. There is some confusion about the patient's eye drops and the patient's son will attempt to obtain her medication list as being provided at her [facility] to compare against current records. Additional interventions will be considered depending on patient's initial response to therapy. Marlon Bauman M.D. DR: Estrada JOB#: [id number] CC: ALEX
[2017-04-14] MEDS: sitaGLIPtin 25mg tab ORAL SCH (06:19)
[2017-04-14] MEDS ORDERED: Iron Sucrose 100 MG in NS 55 ML IV SCH ×2 (07:00→21:00)
[2017-04-14 07:46] LABS: BASOPHILS % (AUTO) 0.7 % (0.0-2.0); EOSINOPHILS % (AUTO) 2.1 % (0.0-3.0); LYMPHOCYTES % (AUTO) 10.9 % (20.0-45.0); MEAN CORPUSCULAR HEMOGLOBIN 27.2 PG (27.0-31.0); MEAN CORPUSCULAR HGB CONC 32.9 G/DL (32.0-36.0); MEAN CORPUSCULAR VOLUME 83 FL (80-99); MEAN PLATELET VOLUME 6.7 FL (6.5-10.1); MONOCYTES % (AUTO) 13.7 % (1.0-10.0); NEUTROPHILS % (AUTO) 72.5 % (45.0-75.0); PLATELET COUNT 248 K/UL (150-450); RED BLOOD COUNT 3.59 M/UL (4.20-5.40); RED CELL DISTRIBUTION WIDTH 16.5 % (11.6-14.8); WHITE BLOOD COUNT 7.9 K/UL (4.8-10.8)
[2017-04-14 08:40] VITALS: BP 135/64
[2017-04-14 08:45] LABS: ANION GAP 14 (5-15); CALCIUM 9.5 mg/dL (8.6-10.2); CARBON DIOXIDE 22 mEQ/L (20-30); CHLORIDE 103 mEQ/L (98-107); CREATININE 1.3 mg/dL (0.5-0.9); HEMOLYSIS 3; POTASSIUM 4.6 mEQ/L (3.4-4.9); SODIUM 139 mEQ/L (135-145)
[2017-04-14] MEDS: Metoprolol 25mg tab ORAL SCH ×2 (09:00→21:00)
[2017-04-14] MEDS ORDERED: Timolol 0.5% Op Soln 2.5ml BOTH EYES SCH (09:00)
[2017-04-14] MEDS: Vitamin D 1000 IU Tab ORAL SCH (09:32)
[2017-04-14] MEDS: Amiodarone 200mg tab ORAL SCH (09:32)
[2017-04-14] MEDS: Docusate 100mg cap ORAL SCH ×2 (09:33→18:07)
[2017-04-14] MEDS: Vitamin B-12 500mcg tab ORAL SCH (09:33)
[2017-04-14] MEDS: Cosopt Opth Soln 10 mL Btl BOTH EYES SCH ×2 (09:34→18:07)
[2017-04-14] MEDS: Ramipril 5mg cap ORAL SCH (09:49)
[2017-04-14 12:37] VITALS: BP 136/67
--- NOTE | 2017-04-14 14:27 | Cardiology Progress Note ---
Assessment/Plan Status: stable, unchanged Status Narrative Mrs. Edgar was adm w/ severe anemia, ? gi blood loss Transfused prbcs w/ improvement in h/h today, and no evidence for active bleeding. UA + WBC and abacteria, and cx + for GNR She has hx of TAVR, CAD, and PAF w/ prev embolic CVA Assessment/Plan GI evaluation - ? upper/lower endoscopy. Continue to follow h/h. Fe supplement Hold anticoagulation, antiplt until gi bleed is ruled out. Management of UTI per primary MD Subjective ROS Limited/Unobtainable: No Subjective Cardiology for Dr. Patino Ambulating w/ walker. No c/o chest pain, abd pain, n/v or diarrhea, Objective Last 24 Hour Vital Signs Date Time Temp Pulse Resp B/P (MAP) Pulse Ox O2 Delivery O2 Flow Rate FiO2 04/14/17 12:37 98.1 55 18 136/67 98 Room Air 04/14/17 09:49 135/64 04/14/17 08:40 98.1 62 18 135/64 99 Room Air 04/14/17 04:20 97.0 57 20 131/62 Room Air 04/14/17 04:00 58 04/14/17 00:10 97.5 62 20 136/41 98 Room Air 04/14/17 00:00 51 04/13/17 21:02 97.7 53 16 155/62 99 Room Air 04/13/17 20:00 49 04/13/17 18:25 97.2 51 16 152/64 99 Nasal Cannula 2.0 04/13/17 18:21 97.2 51 16 152/64 99 Nasal Cannula 2.0 General Appearance: WD/WN, no apparent distress, alert EENT: PERRL/EOMI Neck: supple, no JVD Rhythm: NSR Cardiovascular: normal rate, regular rhythm, no gallop/murmur Respiratory/Chest: lungs clear Abdomen: non tender, soft, no mass Intake and Output 04/14/17 04/15/17 19:00 07:00 Intake Total 240 ml Output Total 150 ml Balance 90 ml Intake Oral 240 ml Output Urine Total 150 ml # Voids 1 # Bowel Movements 1 Laboratory Tests Test 04/14/17 05:30 White Blood Count 7.9 K/UL (4.8-10.8) Red Blood Count 3.59 M/UL (4.20-5.40) L Hemoglobin 9.8 G/DL (12.0-16.0) #L Hematocrit 29.7 % (37.0-47.0) #L Mean Corpuscular Volume 83 FL (80-99) Mean Corpuscular Hemoglobin 27.2 PG (27.0-31.0) Mean Corpuscular Hemoglobin Concent 32.9 G/DL (32.0-36.0) Red Cell Distribution Width 16.5 % (11.6-14.8) H Platelet Count 248 K/UL (150-450) Mean Platelet Volume 6.7 FL (6.5-10.1) Neutrophils (%) (Auto) 72.5 % (45.0-75.0) Lymphocytes (%) (Auto) 10.9 % (20.0-45.0) L Monocytes (%) (Auto) 13.7 % (1.0-10.0) H Eosinophils (%) (Auto) 2.1 % (0.0-3.0) Basophils (%) (Auto) 0.7 % (0.0-2.0) Sodium Level 139 mEQ/L (135-145) Potassium Level 4.6 mEQ/L (3.4-4.9) Chloride Level 103 mEQ/L (98-107) Carbon Dioxide Level 22 mEQ/L (20-30) Anion Gap 14 (5-15) Blood Urea Nitrogen 27 mg/dL (7-23) H Creatinine 1.3 mg/dL (0.5-0.9) H Estimat Glomerular Filtration Rate mL/min (>60) Glucose Level 80 mg/dL (74-106) Calcium Level 9.5 mg/dL (8.6-10.2) Microbiology Date/Time Source Procedure Growth Status 04/13/17 14:18 Urine,Clean Catch Urine Culture - Preliminary Gram Negative Otoniel Resulted RUKHSANA HAZEL Apr 14, 2017 14:27
[2017-04-14] MEDS ORDERED: cefTRIAXone 1 GM in D5W 55 ML IVPB SCH (15:00)
[2017-04-14] MEDS ORDERED: Tubing Blood Filter IV ONE (15:36)
[2017-04-14] MEDS ORDERED: NS 275ml ONE (15:36)
[2017-04-14 15:52] VITALS: BP 126/62
--- NOTE | 2017-04-14 15:57 | General Progress Note ---
Assessment/Plan Assessment/Plan GI CONSULT Assessment - Iron deficiency anemia - OB (+) stools - now symptomatic - transfused - need for [facility] systemic anticoagulation - patient agreeable to EGD colon - h/o constipation Recommendations - GI prepration - agree with IV Iron - Hold anticoagulation - follow CBC - Will arrange for EGD/Colon early next week Subjective Allergies: Coded Allergies: No Known Allergies (Verified Allergy, Unknown, 03/12/10) Objective Last 24 Hour Vital Signs Date Time Temp Pulse Resp B/P (MAP) Pulse Ox O2 Delivery O2 Flow Rate FiO2 04/14/17 12:37 98.1 55 18 136/67 98 Room Air 04/14/17 12:00 56 04/14/17 09:49 135/64 04/14/17 08:40 98.1 62 18 135/64 99 Room Air 04/14/17 08:00 62 04/14/17 04:20 97.0 57 20 131/62 Room Air 04/14/17 04:00 58 04/14/17 00:10 97.5 62 20 136/41 98 Room Air 04/14/17 00:00 51 04/13/17 21:02 97.7 53 16 155/62 99 Room Air 04/13/17 20:00 49 04/13/17 18:25 97.2 51 16 152/64 99 Nasal Cannula 2.0 04/13/17 18:21 97.2 51 16 152/64 99 Nasal Cannula 2.0 Intake and Output 04/14/17 04/15/17 19:00 07:00 Intake Total 240 ml Output Total 150 ml Balance 90 ml Intake Oral 240 ml Output Urine Total 150 ml # Voids 1 # Bowel Movements 2 Laboratory Tests 04/14/17 05:30: White Blood Count 7.9, Red Blood Count 3.59L, Hemoglobin 9.8#L, Hematocrit 29.7# L, Mean Corpuscular Volume 83, Mean Corpuscular Hemoglobin 27.2, Mean Corpuscular Hemoglobin Concent 32.9, Red Cell Distribution Width 16.5H, Platelet Count 248, Mean Platelet Volume 6.7, Neutrophils (%) (Auto) 72.5, Lymphocytes (%) (Auto) 10.9L, Monocytes (%) (Auto) 13.7H, Eosinophils (%) (Auto ) 2.1, Basophils (%) (Auto) 0.7, Sodium Level 139, Potassium Level 4.6, Chloride Level 103, Carbon Dioxide Level 22, Anion Gap 14, Blood Urea Nitrogen 27H, Creatinine 1.3H, Estimat Glomerular Filtration Rate , Glucose Level 80, Calcium Level 9.5 04/14/17 13:15: Stool Occult Blood [Pending] Height (Feet): 5 Height (Inches): 2.00 Weight (Pounds): 140 CRISTIANA CASPER Apr 14, 2017 15:57
--- NOTE | 2017-04-14 17:25 | Geriatric Progress Note ---
Assessment/Plan Problems: (1) Gastrointestinal bleeding (2) Aortic valve replaced (3) Hypertension (4) Aortic stenosis, severe (5) Prerenal azotemia (6) Coronary arteriosclerosis (7) Acute kidney injury (8) Hyperlipidemia (9) Liver cirrhosis (10) Paroxysmal atrial fibrillation (11) HTN (hypertension) (12) UTI (urinary tract infection) (13) Anemia (14) History of left lower extremity amputation Assessment/Plan Anemia improved with 2u prbc, initial Venofer. Continue Venofer, monitor for active bleeding. EGD/Colonoscopy planned per Dr. Brunner. UTI on empirical Ceftriaxone, C&S pending. PAD, awaiting duplex to determine ? recurrent high-grade ischemia. Mentation compatible with recent baseline. Mobilization with P.T. for cardiovascular endurance, mobility. Other medical issues appear adequately controlled on present tx. Awaiting medication list confirmation by son. Discussed with: patient, hospital staff Subjective Interval Events Patient alert, cheerful. More energetic than yesterday. Transfused 2u prbc with corresponding increase in Hct. Denies new sxs. Eating 75%. B.m. collected, no occult blood available in hospital. Urine growing [id number]. SALVATORE improved with volume expansion. LE vascular study done, reading pending. Seen by Dr. Brunner, recommends EGD/colonoscopy, patient has assented. Staff reports no other clinical issues. Constitutional: Denies: chills, pain, sweats, fever Respiratory: Denies: cough, orthopnea, shortness of breath Cardiovascular: Denies: chest pain, palpitations Gastrointestinal/Abdominal: Denies: abdominal pain, diarrhea, nausea, vomiting Genitourinary: Denies: dysuria, hematuria Musculoskeletal: Denies: back pain, joint pain Geriatric Geriatric Last 24 Hour Vital Signs Date Time Temp Pulse Resp B/P (MAP) Pulse Ox O2 Delivery O2 Flow Rate FiO2 04/14/17 15:52 97.9 57 18 126/62 98 Room Air 04/14/17 12:37 98.1 55 18 136/67 98 Room Air 04/14/17 12:00 56 04/14/17 09:49 135/64 04/14/17 08:40 98.1 62 18 135/64 99 Room Air 04/14/17 08:00 62 04/14/17 04:20 97.0 57 20 131/62 Room Air 04/14/17 04:00 58 04/14/17 00:10 97.5 62 20 136/41 98 Room Air 04/14/17 00:00 51 04/13/17 21:02 97.7 53 16 155/62 99 Room Air 04/13/17 20:00 49 04/13/17 18:25 97.2 51 16 152/64 99 Nasal Cannula 2.0 04/13/17 18:21 97.2 51 16 152/64 99 Nasal Cannula 2.0 Intake and Output 04/14/17 04/15/17 19:00 07:00 Intake Total 240 ml Output Total 150 ml Balance 90 ml Intake Oral 240 ml Output Urine Total 150 ml # Voids 1 # Bowel Movements 2 Laboratory Tests Test 04/14/17 05:30 04/14/17 13:15 White Blood Count 7.9 K/UL (4.8-10.8) Red Blood Count 3.59 M/UL (4.20-5.40) L Hemoglobin 9.8 G/DL (12.0-16.0) #L Hematocrit 29.7 % (37.0-47.0) #L Mean Corpuscular Volume 83 FL (80-99) Mean Corpuscular Hemoglobin 27.2 PG (27.0-31.0) Mean Corpuscular Hemoglobin Concent 32.9 G/DL (32.0-36.0) Red Cell Distribution Width 16.5 % (11.6-14.8) H Platelet Count 248 K/UL (150-450) Mean Platelet Volume 6.7 FL (6.5-10.1) Neutrophils (%) (Auto) 72.5 % (45.0-75.0) Lymphocytes (%) (Auto) 10.9 % (20.0-45.0) L Monocytes (%) (Auto) 13.7 % (1.0-10.0) H Eosinophils (%) (Auto) 2.1 % (0.0-3.0) Basophils (%) (Auto) 0.7 % (0.0-2.0) Sodium Level 139 mEQ/L (135-145) Potassium Level 4.6 mEQ/L (3.4-4.9) Chloride Level 103 mEQ/L (98-107) Carbon Dioxide Level 22 mEQ/L (20-30) Anion Gap 14 (5-15) Blood Urea Nitrogen 27 mg/dL (7-23) H Creatinine 1.3 mg/dL (0.5-0.9) H Estimat Glomerular Filtration Rate mL/min (>60) Glucose Level 80 mg/dL (74-106) Calcium Level 9.5 mg/dL (8.6-10.2) Stool Occult Blood Pending Current Medications Medications (Trade) Dose Ordered Sig/Esther Route PRN Reason Start Time Stop Time Status Last Admin Dose Admin Amiodarone HCl (Cordarone) 200 mg DAILY ORAL 04/14/17 09:00 05/14/17 08:59 04/14/17 09:32 Atorvastatin Calcium (Lipitor) 10 mg BEDTIME ORAL 04/13/17 21:00 05/13/17 20:59 Ceftriaxone Sodium 1 gm/ Dextrose 55 ml @ 110 mls/hr Q24H IVPB 04/14/17 15:00 04/21/17 14:59 04/14/17 15:42 Cyanocobalamin (Vitamin B-12) 500 mcg DAILY ORAL 04/14/17 09:00 05/14/17 08:59 04/14/17 09:33 Dextrose (Dextrose 50%) STAT PRN IV Hypoglycemia 04/13/17 18:15 05/13/17 18:14 Docusate Sodium (Colace) 100 mg TWICE A DAY ORAL 04/14/17 09:00 05/14/17 08:59 04/14/17 09:33 Dorzolamide/ Timolol (Cosopt) 1 drop TWICE A DAY BOTH EYES 04/14/17 09:00 05/14/17 08:59 04/14/17 09:34 Duloxetine HCl (Cymbalta) 20 mg DAILY ORAL 04/14/17 09:00 05/14/17 08:59 04/14/17 09:48 EZETIMIBE (Zetia) 10 mg BEDTIME ORAL 04/13/17 21:00 05/13/17 20:59 Iron Sucrose 100 mg/Sodium Chloride 60 ml @ 240 mls/hr DAILY@0700 IV 04/14/17 07:00 04/18/17 07:14 Latanoprost (Xalatan) 1 drop BEDTIME BOTH EYES 04/13/17 21:00 05/13/17 20:59 Levothyroxine Sodium (Synthroid) 75 mcg DAILY@0630 ORAL 04/14/17 06:30 05/14/17 06:29 04/14/17 06:19 Metoprolol Tartrate (Lopressor) 25 mg Q12HR ORAL 04/13/17 21:00 05/13/17 20:59 Pantoprazole (Protonix) 40 mg DAILY ORAL 04/14/17 09:00 05/14/17 08:59 04/14/17 09:34 Ramelteon (Rozerem) 8 mg QHS ORAL 04/13/17 21:00 05/13/17 20:59 Ramipril (Altace) 10 mg DAILY ORAL 04/14/17 09:00 05/14/17 08:59 04/14/17 09:49 Sitagliptin Phosphate (Januvia) 25 mg ACBREAKFAST ORAL 04/14/17 06:30 05/14/17 06:29 04/14/17 06:19 Vitamin D (Vitamin D) 2,000 intlu DAILY ORAL 04/14/17 09:00 05/14/17 08:59 04/14/17 09:32 Height (Feet): 5 Height (Inches): 2.00 Weight (Pounds): 140 General Appearance: no apparent distress, alert, non-toxic Head: normocephalic, atraumatic Eyes: bilateral anicteric ENT: normal pharynx, normal voice Neck: full range of motion, no mass Respiratory: lungs clear Cardiovascular: regular rate, rhythm, systolic murmur Gastrointestinal: normal bowel sounds, non tender, soft, no mass, no organomegaly, non-distended Musculoskeletal: no calf tenderness Edema: no edema noted Generalized Neurologic: alert, no new focality Skin: other - no ulcerations on L stump or R leg. LUBNA CLIFFORD Apr 14, 2017 17:25
[2017-04-14 21:00] VITALS: BP 135/52
[2017-04-14] MEDS: Ramelteon 8mg tab (Approved for Delirium use only) ORAL SCH ×2 (21:00→21:41)
[2017-04-14] MEDS: Iron Sucrose 100 MG in NS 55 ML IV SCH (21:41)
[2017-04-15] VITALS: BP 120/50
[2017-04-15 04:00] VITALS: BP 107/47
[2017-04-15] MEDS: sitaGLIPtin 25mg tab ORAL SCH (06:50)
[2017-04-15 07:07] LABS: BASOPHILS % (AUTO) 0.8 % (0.0-2.0); EOSINOPHILS % (AUTO) 5.8 % (0.0-3.0); LYMPHOCYTES % (AUTO) 14.6 % (20.0-45.0); MEAN CORPUSCULAR HEMOGLOBIN 26.1 PG (27.0-31.0); MEAN CORPUSCULAR HGB CONC 31.4 G/DL (32.0-36.0); MEAN CORPUSCULAR VOLUME 83 FL (80-99); MEAN PLATELET VOLUME 6.3 FL (6.5-10.1); MONOCYTES % (AUTO) 14.4 % (1.0-10.0); NEUTROPHILS % (AUTO) 64.3 % (45.0-75.0); PLATELET COUNT 267 K/UL (150-450); RED BLOOD COUNT 3.99 M/UL (4.20-5.40); RED CELL DISTRIBUTION WIDTH 16.6 % (11.6-14.8); WHITE BLOOD COUNT 4.8 K/UL (4.8-10.8)
[2017-04-15] MEDS ORDERED: Nulytely 4L ORAL ONE ×2 (07:30→09:30)
[2017-04-15 07:35] LABS: ANION GAP 12 (5-15); CALCIUM 9.7 mg/dL (8.6-10.2); CARBON DIOXIDE 25 mEQ/L (20-30); CHLORIDE 104 mEQ/L (98-107); CREATININE 1.2 mg/dL (0.5-0.9); HEMOLYSIS 7; POTASSIUM 4.6 mEQ/L (3.4-4.9); SODIUM 141 mEQ/L (135-145)
[2017-04-15 08:49] LABS: OTHERS PATHOLOGIST COMMENT
[2017-04-15 08:50] VITALS: BP 130/57
[2017-04-15] MEDS ORDERED: NS 275ml ONE (08:56)
[2017-04-15] MEDS ORDERED: Tubing IV Secondary IV ONE (08:56)
[2017-04-15] MEDS: Amiodarone 200mg tab ORAL SCH ×3 (09:00→12:19)
[2017-04-15] MEDS: Metoprolol 25mg tab ORAL SCH ×2 (09:00→21:54)
[2017-04-15] MEDS: Cosopt Opth Soln 10 mL Btl BOTH EYES SCH ×2 (10:20→17:40)
[2017-04-15] MEDS: Vitamin D 1000 IU Tab ORAL SCH (10:21)
[2017-04-15] MEDS: Docusate 100mg cap ORAL SCH ×2 (10:21→17:34)
[2017-04-15] MEDS: Ramipril 5mg cap ORAL SCH (10:21)
[2017-04-15] MEDS: Vitamin B-12 500mcg tab ORAL SCH (10:22)
--- NOTE | 2017-04-15 11:47 | Geriatric Progress Note ---
Assessment/Plan Problems: (1) Gastrointestinal bleeding (2) Aortic valve replaced (3) Hypertension (4) Aortic stenosis, severe (5) Prerenal azotemia (6) Coronary arteriosclerosis (7) Acute kidney injury (8) Hyperlipidemia (9) Liver cirrhosis (10) Paroxysmal atrial fibrillation (11) HTN (hypertension) (12) UTI (urinary tract infection) (13) Anemia (14) History of left lower extremity amputation Assessment/Plan Hct increased with equilibration. No blood in stool currently, suggests likely slow chronic blood loss. Reviewed types of pathology potentially amenable to relatively conservative tx in GI tract with son. Await studies. Bradycardia, ? med titration per cardiology. UTI convert to macrodantin. Renal function improved, observe for normalization. Asked about DVT prophylaxis - contraindicated by blood loss, PAD. Discussed with: patient, family, hospital staff Subjective Interval Events Patient brighter today. Denies c/o except having to undergo bowel prep. Persistent sinus janette noted on monitor, multiple doses of metoprolol, amiodarone held by nursing. Defer dosage titration to cardiology. Renal function improving. Urine growing pansensitive E coli, will convert to macrodantin. 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 Stool OB -. Constitutional: Denies: chills, pain, sweats, fever Eye: Denies: eye pain Respiratory: Denies: cough, orthopnea, shortness of breath, wheezing Cardiovascular: Denies: chest pain, palpitations Gastrointestinal/Abdominal: Denies: abdominal pain, nausea, vomiting, melena/ BRBPR Genitourinary: Denies: dysuria Geriatric Geriatric Last 24 Hour Vital Signs Date Time Temp Pulse Resp B/P (MAP) Pulse Ox O2 Delivery O2 Flow Rate FiO2 04/15/17 10:21 130/57 04/15/17 09:00 54 130/57 04/15/17 08:50 97.5 54 18 130/57 98 Room Air 04/15/17 05:03 54 04/15/17 04:00 56 04/15/17 04:00 97.9 56 18 107/47 98 Room Air 04/15/17 00:00 56 04/15/17 00:00 97.9 56 18 120/50 98 Room Air 04/14/17 21:00 57 04/14/17 21:00 98.1 52 18 135/52 98 Room Air 04/14/17 21:00 54 130/50 04/14/17 16:00 58 04/14/17 15:52 97.9 57 18 126/62 98 Room Air 04/14/17 12:37 98.1 55 18 136/67 98 Room Air 04/14/17 12:00 56 Intake and Output 04/15/17 04/16/17 19:00 07:00 Intake Total 240 ml Balance 240 ml Intake Oral 240 ml # Voids 1 Laboratory Tests Test 04/14/17 13:15 04/15/17 05:50 Stool Occult Blood Negative (NEGATIVE) White Blood Count 4.8 K/UL (4.8-10.8) Red Blood Count 3.99 M/UL (4.20-5.40) L Hemoglobin 10.4 G/DL (12.0-16.0) L Hematocrit 33.1 % (37.0-47.0) L Mean Corpuscular Volume 83 FL (80-99) Mean Corpuscular Hemoglobin 26.1 PG (27.0-31.0) L Mean Corpuscular Hemoglobin Concent 31.4 G/DL (32.0-36.0) L Red Cell Distribution Width 16.6 % (11.6-14.8) H Platelet Count 267 K/UL (150-450) Mean Platelet Volume 6.3 FL (6.5-10.1) L Neutrophils (%) (Auto) 64.3 % (45.0-75.0) Lymphocytes (%) (Auto) 14.6 % (20.0-45.0) L Monocytes (%) (Auto) 14.4 % (1.0-10.0) H Eosinophils (%) (Auto) 5.8 % (0.0-3.0) H Basophils (%) (Auto) 0.8 % (0.0-2.0) Sodium Level 141 mEQ/L (135-145) Potassium Level 4.6 mEQ/L (3.4-4.9) Chloride Level 104 mEQ/L (98-107) Carbon Dioxide Level 25 mEQ/L (20-30) Anion Gap 12 (5-15) Blood Urea Nitrogen 20 mg/dL (7-23) Creatinine 1.2 mg/dL (0.5-0.9) H Estimat Glomerular Filtration Rate mL/min (>60) Glucose Level 89 mg/dL (74-106) Calcium Level 9.7 mg/dL (8.6-10.2) Current Medications Medications (Trade) Dose Ordered Sig/Esther Route PRN Reason Start Time Stop Time Status Last Admin Dose Admin Amiodarone HCl (Cordarone) 200 mg DAILY ORAL 04/14/17 09:00 05/14/17 08:59 04/14/17 09:32 Atorvastatin Calcium (Lipitor) 10 mg BEDTIME ORAL 04/13/17 21:00 05/13/17 20:59 04/14/17 21:00 Bisacodyl (Dulcolax) 20 mg ONCE ONCE ORAL 04/15/17 17:00 04/15/17 17:01 Ceftriaxone Sodium 1 gm/ Dextrose 55 ml @ 110 mls/hr Q24H IVPB 04/14/17 15:00 04/21/17 14:59 04/14/17 15:42 Cyanocobalamin (Vitamin B-12) 500 mcg DAILY ORAL 04/14/17 09:00 05/14/17 08:59 04/15/17 10:22 Dextrose (Dextrose 50%) STAT PRN IV Hypoglycemia 04/13/17 18:15 05/13/17 18:14 Docusate Sodium (Colace) 100 mg TWICE A DAY ORAL 04/14/17 09:00 05/14/17 08:59 04/15/17 10:21 Dorzolamide/ Timolol (Cosopt) 1 drop TWICE A DAY BOTH EYES 04/14/17 09:00 05/14/17 08:59 04/15/17 10:20 Duloxetine HCl (Cymbalta) 20 mg DAILY ORAL 04/14/17 09:00 05/14/17 08:59 04/15/17 10:20 EZETIMIBE (Zetia) 10 mg BEDTIME ORAL 04/13/17 21:00 05/13/17 20:59 04/14/17 21:00 Iron Sucrose 100 mg/Sodium Chloride 60 ml @ 240 mls/hr QHS IV 04/14/17 21:00 04/18/17 21:14 04/14/17 21:41 Latanoprost (Xalatan) 1 drop BEDTIME BOTH EYES 04/13/17 21:00 05/13/17 20:59 04/14/17 21:00 Levothyroxine Sodium (Synthroid) 75 mcg DAILY@0630 ORAL 04/14/17 06:30 05/14/17 06:29 04/15/17 06:50 Metoprolol Tartrate (Lopressor) 25 mg Q12HR ORAL 04/13/17 21:00 05/13/17 20:59 Pantoprazole (Protonix) 40 mg DAILY ORAL 04/14/17 09:00 05/14/17 08:59 04/15/17 10:21 Ramelteon (Rozerem) 8 mg QHS ORAL 04/13/17 21:00 05/13/17 20:59 04/14/17 21:00 Ramipril (Altace) 10 mg DAILY ORAL 04/14/17 09:00 05/14/17 08:59 04/15/17 10:21 Sitagliptin Phosphate (Januvia) 25 mg ACBREAKFAST ORAL 04/14/17 06:30 05/14/17 06:29 04/15/17 06:50 Vitamin D (Vitamin D) 2,000 intlu DAILY ORAL 04/14/17 09:00 05/14/17 08:59 04/15/17 10:21 Height (Feet): 5 Height (Inches): 2.00 Weight (Pounds): 140 General Appearance: well appearing, no apparent distress, alert, non-toxic Head: normocephalic, atraumatic Eyes: bilateral anicteric ENT: normal pharynx, normal voice Neck: full range of motion, no mass Respiratory: lungs clear Cardiovascular: bradycardia, systolic murmur Gastrointestinal: normal bowel sounds, non tender, soft, no mass, no organomegaly, no bruit, non-distended, no guarding Musculoskeletal: no calf tenderness, other - R foot warm Edema: no edema noted Generalized LUBNA CLIFFORD Apr 15, 2017 11:47
--- NOTE | 2017-04-15 12:14 | Cardiology Progress Note ---
Assessment/Plan Problem List: (1) Atrial fibrillation (2) TIA (transient ischemic attack) (3) History of gastrointestinal bleeding (4) History of left lower extremity amputation (5) Aortic valve replaced (6) Anemia Status Narrative Mrs. Edgar was adm w/ severe anemia, felt possibly due to chronic gi blood loss. H/h have improved post-transfusion. She is in SR , bradycardic to the 50s, without symptoms, on amiodarone. Assessment/Plan Upper/lower gi endoscopy planned for tomorrow. Will continue telemetry continue current amiodarone to maintain sinus rhythm, as she cannot be anticoagulated at this time. Followup labs in am Subjective ROS Limited/Unobtainable: No Subjective Cardiology for Dr. Patino Pt without c/o chest pain, abd pain. Undergoing bowel prep for colonoscopy tomorrow Objective Last 24 Hour Vital Signs Date Time Temp Pulse Resp B/P (MAP) Pulse Ox O2 Delivery O2 Flow Rate FiO2 04/15/17 10:21 130/57 04/15/17 09:00 54 130/57 04/15/17 08:50 97.5 54 18 130/57 98 Room Air 04/15/17 05:03 54 04/15/17 04:00 56 04/15/17 04:00 97.9 56 18 107/47 98 Room Air 04/15/17 00:00 56 04/15/17 00:00 97.9 56 18 120/50 98 Room Air 04/14/17 21:00 57 04/14/17 21:00 98.1 52 18 135/52 98 Room Air 04/14/17 21:00 54 130/50 04/14/17 16:00 58 04/14/17 15:52 97.9 57 18 126/62 98 Room Air 04/14/17 12:37 98.1 55 18 136/67 98 Room Air General Appearance: WD/WN, no apparent distress, alert EENT: PERRL/EOMI Neck: non-tender, no JVD Rhythm: SB Cardiovascular: normal rate, bradycardia, systolic murmur - ii/vi LAVELLE R second ICS radiating across precordium and to R carotid Respiratory/Chest: lungs clear Abdomen: non tender, soft Extremities: non-tender, no swelling Intake and Output 04/15/17 04/16/17 19:00 07:00 Intake Total 240 ml Balance 240 ml Intake Oral 240 ml # Voids 1 Laboratory Tests Test 04/14/17 13:15 04/15/17 05:50 Stool Occult Blood Negative (NEGATIVE) White Blood Count 4.8 K/UL (4.8-10.8) Red Blood Count 3.99 M/UL (4.20-5.40) L Hemoglobin 10.4 G/DL (12.0-16.0) L Hematocrit 33.1 % (37.0-47.0) L Mean Corpuscular Volume 83 FL (80-99) Mean Corpuscular Hemoglobin 26.1 PG (27.0-31.0) L Mean Corpuscular Hemoglobin Concent 31.4 G/DL (32.0-36.0) L Red Cell Distribution Width 16.6 % (11.6-14.8) H Platelet Count 267 K/UL (150-450) Mean Platelet Volume 6.3 FL (6.5-10.1) L Neutrophils (%) (Auto) 64.3 % (45.0-75.0) Lymphocytes (%) (Auto) 14.6 % (20.0-45.0) L Monocytes (%) (Auto) 14.4 % (1.0-10.0) H Eosinophils (%) (Auto) 5.8 % (0.0-3.0) H Basophils (%) (Auto) 0.8 % (0.0-2.0) Sodium Level 141 mEQ/L (135-145) Potassium Level 4.6 mEQ/L (3.4-4.9) Chloride Level 104 mEQ/L (98-107) Carbon Dioxide Level 25 mEQ/L (20-30) Anion Gap 12 (5-15) Blood Urea Nitrogen 20 mg/dL (7-23) Creatinine 1.2 mg/dL (0.5-0.9) H Estimat Glomerular Filtration Rate mL/min (>60) Glucose Level 89 mg/dL (74-106) Calcium Level 9.7 mg/dL (8.6-10.2) Microbiology Date/Time Source Procedure Growth Status 04/13/17 14:18 Urine,Clean Catch Urine Culture - Final Escherichia Coli Complete RUKHSANA HAZEL Apr 15, 2017 12:14
[2017-04-15 12:52] VITALS: BP 127/61
[2017-04-15] MEDS: Nitrofurantoin Macrocrystal 50mg cap ORAL SCH ×2 (15:12→21:53)
[2017-04-15 16:20] VITALS: BP 147/60
--- NOTE | 2017-04-15 16:30 | General Progress Note ---
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 systemic anticoagulation - patient agreeable to EGD colon - h/o constipation Recommendations - GI prepration - agree with IV Iron - Hold anticoagulation - follow CBC - EGD/Colon Sunday - IV hydration Subjective Allergies: Coded Allergies: No Known Allergies (Verified Allergy, Unknown, 03/12/10) Subjective above noted on clear liq taking golytely d/w son at bedside Objective Last 24 Hour Vital Signs Date Time Temp Pulse Resp B/P (MAP) Pulse Ox O2 Delivery O2 Flow Rate FiO2 04/15/17 16:20 97.2 54 18 147/60 99 Room Air 04/15/17 12:52 97.0 55 18 127/61 99 Room Air 04/15/17 12:00 54 04/15/17 10:21 130/57 04/15/17 09:00 54 130/57 04/15/17 08:50 97.5 54 18 130/57 98 Room Air 04/15/17 08:00 52 04/15/17 05:03 54 04/15/17 04:00 56 04/15/17 04:00 97.9 56 18 107/47 98 Room Air 04/15/17 00:00 56 04/15/17 00:00 97.9 56 18 120/50 98 Room Air 04/14/17 21:00 57 04/14/17 21:00 98.1 52 18 135/52 98 Room Air 04/14/17 21:00 54 130/50 Intake and Output 04/15/17 04/16/17 19:00 07:00 Intake Total 360 ml Balance 360 ml Intake Oral 360 ml # Voids 2 # Bowel Movements 4 Laboratory Tests 04/15/17 05:50: White Blood Count 4.8, Red Blood Count 3.99L, Hemoglobin 10.4L, Hematocrit 33.1L , Mean Corpuscular Volume 83, Mean Corpuscular Hemoglobin 26.1L, Mean Corpuscular Hemoglobin Concent 31.4L, Red Cell Distribution Width 16.6H, Platelet Count 267, Mean Platelet Volume 6.3L, Neutrophils (%) (Auto) 64.3, Lymphocytes (%) (Auto) 14.6L, Monocytes (%) (Auto) 14.4H, Eosinophils (%) (Auto ) 5.8H, Basophils (%) (Auto) 0.8, Sodium Level 141, Potassium Level 4.6, Chloride Level 104, Carbon Dioxide Level 25, Anion Gap 12, Blood Urea Nitrogen 20, Creatinine 1.2H, Estimat Glomerular Filtration Rate , Glucose Level 89, Calcium Level 9.7 Height (Feet): 5 Height (Inches): 2.00 Weight (Pounds): 140 Objective Thin WW NCAT supple CTA RR abd soft ND (+) amputation (L) CRISTIANA CASPER Apr 15, 2017 16:30
[2017-04-15] MEDS ORDERED: Bisacodyl EC 5mg tab ORAL ONE (17:00)
[2017-04-15] MEDS: D5 1/2NS 1,000 ML IV SCH (17:34)
[2017-04-15 20:58] VITALS: BP 158/70
[2017-04-15] MEDS: Ramelteon 8mg tab (Approved for Delirium use only) ORAL SCH (21:53)
[2017-04-15] MEDS: Iron Sucrose 100 MG in NS 55 ML IV SCH (21:54)
[2017-04-16] VITALS (12 sets, daily range): BP systolic 102–159; BP diastolic 36–62
[2017-04-16] MEDS: D5 1/2NS 1,000 ML IV SCH ×3 (02:45→21:55)
[2017-04-16] MEDS: sitaGLIPtin 25mg tab ORAL SCH (05:57)
[2017-04-16] MEDS: Nitrofurantoin Macrocrystal 50mg cap ORAL SCH ×3 (05:57→21:53)
[2017-04-16 08:05] LABS: MEAN CORPUSCULAR HEMOGLOBIN 26.4 PG (27.0-31.0); MEAN CORPUSCULAR HGB CONC 31.2 G/DL (32.0-36.0); MEAN CORPUSCULAR VOLUME 85 FL (80-99); MEAN PLATELET VOLUME 6.2 FL (6.5-10.1); PLATELET COUNT 255 K/UL (150-450); RED BLOOD COUNT 3.88 M/UL (4.20-5.40); RED CELL DISTRIBUTION WIDTH 17.1 % (11.6-14.8); WHITE BLOOD COUNT 6.9 K/UL (4.8-10.8)
--- NOTE | 2017-04-16 08:15 | Consultation ---
CONSULTING PHYSICIAN: Eduar Brunner M.D. REFERRING PHYSICIAN: Marlon Bauman M.D. CHIEF COMPLAINT: Evaluation of anemia. HISTORY OF PRESENT ILLNESS: The patient is a pleasant 86-year-old white woman with multiple medical problems who was brought in to the hospital for evaluation of her weakness and severe anemia. She was seen by her screening tech as an outpatient recently and was noted to have a hematocrit of 22% with an iron saturation of 4%. She was admitted to the emergency room and has so far been transfused and feels better. She also was found to have a urinary tract infection for which she is on antibiotics. The patient recalls having an endoscopy and colonoscopy by another dust mill operator, but this was at least 3 years ago and she could not recall further history and individual results. She does say that has had a history of peptic ulcer disease in the past, but no colonic pathology. She denies any hematochezia or altered bowel habits, although she does have long-term constipation. She is on anticoagulation for a long-term history of in and out atrial fibrillation. The anticoagulation as of this point has been held. PAST MEDICAL HISTORY: Cognitive dysfunction, hypertension, hyperlipidemia, diabetes, paroxysmal atrial fibrillation, history of myocardial infarction, aortic stenosis status post TAVR, status post left lower extremity amputation, history of cirrhosis because of a past history of alcohol use, old history of stroke, and history of gallstones. MEDICATIONS: See the chart list for details. FAMILY HISTORY: Positive for diabetes. SOCIAL HISTORY: The patient has had a previous history of smoking, which was discontinued. 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 REVIEW OF SYSTEMS: Otherwise negative. PHYSICAL EXAMINATION: GENERAL: A pleasant, thin white woman seen in her room. HEENT: Normocephalic and atraumatic. Sclerae anicteric. Oropharynx clear. NECK: Supple. CHEST: Clear to auscultation. CARDIOVASCULAR: Regular rate. ABDOMEN: Soft and flat. Good bowel sounds. EXTREMITIES: Left lower extremity amputation. NEUROLOGIC: Exam is grossly nonfocal. LABORATORY DATA: Noted. ASSESSMENT: This patient presents with symptomatic anemia, which does require blood transfusion. In addition, the patient has heme-positive stools and will need to be maintained on long-term anticoagulation due to her history of in and out atrial fibrillation. The patient will, therefore, benefit from a gastrointestinal evaluation to evaluate the size, nature, and source of the chronic blood loss. Indications, risks, alternatives, and possible complications were explained to the patient and informed consent was obtained. RECOMMENDATIONS: 1. GI tract preparation. 2. IV iron. 3. Endoscopy and colonoscopy early next week. Thank you for asking me to participate in the care of this patient. Eduar Brunner M.D. DR: ERMELINDA JOB#: [id number] CC: ALEX
[2017-04-16 08:25] LABS: THYROID STIMULATING HORMONE 4.11 uIU/mL (0.300-4.500)
[2017-04-16 09:00] LABS: BAND NEUTROPHILS % (MANUAL) 0 % (0-8); BASOPHILS % (MANUAL) 0 % (0-2); EOSINOPHILS % (MANUAL) 4 % (0-3); LYMPHOCYTES % (MANUAL) 11 % (20-45); NEUTROPHILS % (MANUAL) 72 % (45-75); PLATELET ESTIMATE ADEQUATE; PLATELET MORPHOLOGY NORMAL; TOTAL CELLS COUNTED 100
[2017-04-16] MEDS: Metoprolol 25mg tab ORAL SCH (09:00)
[2017-04-16 09:01] LABS: ANISOCYTOSIS 1+; HYPOCHROMASIA 2+; MACROCYTES 1+; OVALOCYTES 1+; STOMATOCYTES 1+
[2017-04-16] MEDS: Vitamin B-12 500mcg tab ORAL SCH (09:53)
[2017-04-16] MEDS: Docusate 100mg cap ORAL SCH ×2 (09:53→18:00)
[2017-04-16] MEDS: Vitamin D 1000 IU Tab ORAL SCH (09:53)
[2017-04-16] MEDS: Amiodarone 200mg tab ORAL SCH (09:54)
[2017-04-16] MEDS: Ramipril 5mg cap ORAL SCH (09:54)
[2017-04-16] MEDS: Cosopt Opth Soln 10 mL Btl BOTH EYES SCH ×2 (09:57→18:00)
--- NOTE | 2017-04-16 10:42 | Pre-Procedure Note/Attestation ---
Pre-Procedure Note/Attestation Complete Prior to Procedure Planned Procedure: not applicable Procedure Narrative: EGD / colon Indications for Procedure Pre-Operative Diagnosis: anemia Attestation I attest that I discussed the nature of the procedure; its benefits; risks and complications; and alternatives (and the risks and benefits of such alternatives ), prior to the procedure, with the patient (or the patient's legal traveling representative). I attest that, if there was a reasonable possibility of needing a blood transfusion, the patient (or the patient's legal traveling representative) was given the [facility] standardized written summary, pursuant to the Frederic Katia Blood Safety Act ([place] Health and Safety Code # 1645, as amended). I attest that I re-evaluated the patient just prior to the surgery and that there has been no change in the patient's H&P, except as documented below: CRISTIANA CASPER Apr 16, 2017 10:42
[2017-04-16] MEDS ORDERED: Midazolam 2mg/2ml Inj ONE (11:45)
[2017-04-16] MEDS ORDERED: Alfentanil 2ml Inj ONE (11:45)
[2017-04-16] MEDS ORDERED: LR 1000ml ONE (11:45)
[2017-04-16] MEDS ORDERED: Propofol 200mg/20ml IV ONE (11:45)
[2017-04-16] MEDS ORDERED: NS 550ML IV ONE (11:55)
[2017-04-16] MEDS ORDERED: LR 1000ml 1,000 ML IVLG SCH (12:10)
--- NOTE | 2017-04-16 12:10 | Anethesia Preoperative Eval ---
Anesthesia Pre-op PMH/ROS General Date of Evaluation: Apr 16, 2017 Time of Evaluation: 11:47 Anesthesiologist: Gilda ASA Score: ASA 3 Mallampati Score Class I : Soft palate, uvula, fauces, pillars visible Class II: Soft palate, uvula, fauces visible Class III: Soft palate, base of uvula visible Class IV: Only hard plate visible Mallampati Classification: Class II Surgeon: Myesha Diagnosis: Abd Pain Surgical Procedure: EGD/Colonoscopy Anesthesia History: none Family History: no anesthesia problems Allergies: Coded Allergies: No Known Allergies (Verified Allergy, Unknown, 03/12/10) Medications: see eMAR Past Medical History Cardiovascular: Reports: HTN, CAD, other - Valvular Diease Neurologic/Psychiatric: Reports: CVA Endocrine: Reports: DM PSxH Narrative: L Leg Amp, Intra Aortic Ballon Pump Anesthesia Pre-op Phys. Exam Physician Exam Last Vital Signs Date Time Temp Pulse Resp B/P (MAP) Pulse Ox O2 Delivery O2 Flow Rate FiO2 04/16/17 09:54 142/62 04/16/17 09:00 54 04/16/17 08:00 97.5 18 97 Room Air 04/13/17 18:25 2.0 Constitutional: NAD Neurologic: CN 2-12 intact Cardiovascular: RRR Respiratory: CTA Gastrointestinal: S/NT/ND Airway Exam Mallampati Score: Class II MO: limited ROM: limited Teeth: missing, intact Anesthesia Pre-op A/P Labs Hematology Test 04/16/17 07:10 White Blood Count 6.9 K/UL (4.8-10.8) Red Blood Count 3.88 M/UL (4.20-5.40) L Hemoglobin 10.2 G/DL (12.0-16.0) L Hematocrit 32.8 % (37.0-47.0) L Mean Corpuscular Volume 85 FL (80-99) Mean Corpuscular Hemoglobin 26.4 PG (27.0-31.0) L Mean Corpuscular Hemoglobin Concent 31.2 G/DL (32.0-36.0) L Red Cell Distribution Width 17.1 % (11.6-14.8) H Platelet Count 255 K/UL (150-450) Mean Platelet Volume 6.2 FL (6.5-10.1) L Neutrophils (%) (Auto) % (45.0-75.0) Lymphocytes (%) (Auto) % (20.0-45.0) Monocytes (%) (Auto) % (1.0-10.0) Eosinophils (%) (Auto) % (0.0-3.0) Basophils (%) (Auto) % (0.0-2.0) Differential Total Cells Counted 100 Neutrophils % (Manual) 72 % (45-75) Lymphocytes % (Manual) 11 % (20-45) L Monocytes % (Manual) 13 % (1-10) H Eosinophils % (Manual) 4 % (0-3) H Basophils % (Manual) 0 % (0-2) Band Neutrophils 0 % (0-8) Platelet Estimate Adequate Platelet Morphology Normal Hypochromasia 2+ Anisocytosis 1+ Macrocytosis 1+ Ovalocytes 1+ Stomatocytes 1+ Chemistry Test 04/16/17 07:10 Thyroid Stimulating Hormone (TSH) 4.110 uIU/mL (0.300-4.500) Free Thyroxine 1.33 ng/dL (0.86-1.85) Studies Pre-op Studies: EKG - Low Voltage Risk Assessment & Plan Assessment: ASA 3 Plan: GA Status Change Before Surgery: Ken Gallardo MD Apr 16, 2017 12:10
--- NOTE | 2017-04-16 12:13 | 48 Hour Post Anesthesia Eval ---
Post Anesthesia Evaluation Procedure: EGD/Colonoscopy Date of Evaluation: Apr 16, 2017 Time of Evaluation: 15:11 Blood Pressure Systolic: 141 0: 67 Pulse Rate: 53 Respiratory Rate: 18 Temperature (Fahrenheit): 97.6 O2 Sat by Pulse Oximetry: 100 Airway: patent Nausea: No Vomiting: No Pain Intensity: 1 Hydration Status: adequate Cardiopulmonary Status: Stable Mental Status/LOC: patient returned to baseline Follow-up Care/Observations: 0 Post-Anesthesia Complications: 0 Follow-up care needed: ready to discharge Ken Vo MD Apr 16, 2017 12:13
--- NOTE | 2017-04-16 12:13 | Immediate Post-Op Evaluation ---
Immediate Post-Op Evalulation Immediate Post-Op Evalulation Procedure: EGD/Colonoscopy Date of Evaluation: Apr 16, 2017 Time of Evaluation: 13:03 IV Fluids: 400 LR Blood Products: 0 Estimated Blood Loss: 1 Urinary Output: 0 Blood Pressure Systolic: 105 Blood Pressure Diastolic: 45 Pulse Rate: 46 Respiratory Rate: 16 O2 Sat by Pulse Oximetry: 100 Temperature (Fahrenheit): 97.6 Pain Score (1-10): 1 Nausea: No Vomiting: No Complications 0 Patient Status: awake, reacts, patent, none Hydration Status: adequate Ken Vo MD Apr 16, 2017 12:13
[2017-04-16] MEDS ORDERED: LORazepam Inj 2mg/ml 1ml IV PRN (12:15)
[2017-04-16] MEDS ORDERED: Norco 7.5mg/325mg tab ORAL PRN (12:15)
[2017-04-16] MEDS ORDERED: oxyCODONE HCL/Acetaminophen 5/325mg ORAL PRN (12:15)
[2017-04-16] MEDS ORDERED: fentaNYL 100 mcg/2 mL IV PRN (12:15)
[2017-04-16] MEDS ORDERED: Ketorolac 30mg Inj IV PRN (12:15)
[2017-04-16] MEDS ORDERED: Hydromorphone 0.5mg/0.5ml inj IVP PRN (12:15)
[2017-04-16] MEDS ORDERED: Ketorolac 60mg Inj IV PRN (12:15)
[2017-04-16] MEDS ORDERED: Norco 5mg/325mg tab ORAL PRN (12:15)
[2017-04-16] MEDS ORDERED: DiphenhydrAMINE 50mg/ml Inj IVP PRN (12:15)
[2017-04-16] MEDS ORDERED: Atropine Inj 1mg/10ml Syr IV PRN (12:15)
[2017-04-16] MEDS ORDERED: Midazolam 2mg/2ml Inj IVP PRN (12:15)
--- NOTE | 2017-04-16 12:50 | General Progress Note ---
Assessment/Plan Assessment/Plan Assessment - Iron deficiency anemia - OB (+) stools outpatient - now OB (-) - now symptomatic - transfused - need for intermediate teacher systemic anticoagulation - constipation - will need intermediate teacher bowel regimen Recommendations - NPO - IV Iron - Anticoagulation on hold - follow CBC - EGD/Colon today - IV hydration POST PROCEDURE ADDENDUM: EGD - Large (10-12 cm) hiatal hernia No ulcers or bleeding biopsies sent Colon- moderate diverticulosis No polyps or CA Assessment Anemia, likely due to large Hiatal Hernia h/o OB (+) stools Recommendations f/u path capsule endoscopy - will arrange for tomorrow Subjective Allergies: Coded Allergies: No Known Allergies (Verified Allergy, Unknown, 03/12/10) Subjective (++) BM with prep no BRBPR for EGD/Colon Objective Last 24 Hour Vital Signs Date Time Temp Pulse Resp B/P (MAP) Pulse Ox O2 Delivery O2 Flow Rate FiO2 04/16/17 12:00 97.7 55 18 128/53 93 Room Air 04/16/17 09:54 142/62 04/16/17 09:00 54 142/62 04/16/17 08:00 97.5 54 18 142/62 97 Room Air 04/16/17 07:52 55 04/16/17 04:36 98.1 60 21 159/61 96 Room Air 04/16/17 04:00 55 04/16/17 00:11 98.1 60 20 134/55 96 Room Air 04/16/17 00:00 57 04/15/17 21:54 57 158/70 04/15/17 20:58 98.1 62 20 158/70 Room Air 04/15/17 20:00 62 04/15/17 16:20 97.2 54 18 147/60 99 Room Air 04/15/17 16:00 55 04/15/17 12:52 97.0 55 18 127/61 99 Room Air Intake and Output 04/16/17 04/17/17 19:00 07:00 Intake Total 166.7 ml Balance 166.7 ml IV Total 166.7 ml # Bowel Movements 1 Laboratory Tests 04/16/17 07:10: White Blood Count 6.9, Red Blood Count 3.88L, Hemoglobin 10.2L, Hematocrit 32.8L , Mean Corpuscular Volume 85, Mean Corpuscular Hemoglobin 26.4L, Mean Corpuscular Hemoglobin Concent 31.2L, Red Cell Distribution Width 17.1H, Platelet Count 255, Mean Platelet Volume 6.2L, Neutrophils (%) (Auto) , Lymphocytes (%) (Auto) , Monocytes (%) (Auto) , Eosinophils (%) (Auto) , Basophils (%) (Auto) , Differential Total Cells Counted 100, Neutrophils % ( Manual) 72, Lymphocytes % (Manual) 11L, Monocytes % (Manual) 13H, Eosinophils % (Manual) 4H, Basophils % (Manual) 0, Band Neutrophils 0, Platelet Estimate Adequate, Platelet Morphology Normal, Hypochromasia 2+, Anisocytosis 1+, Macrocytosis 1+, Ovalocytes 1+, Stomatocytes 1+, Thyroid Stimulating Hormone ( TSH) 4.110, Free Thyroxine 1.33 Height (Feet): 5 Height (Inches): 5.00 Weight (Pounds): 140 Objective Thin WW NCAT supple CTA RR abd soft ND (+) LORENZO (L) CRISTIANA CASPER Apr 16, 2017 12:50
--- NOTE | 2017-04-16 12:53 | Endoscopy Procedure Note ---
Endoscopy Procedure Note Indication for Procedure: anemia Procedures Performed: EGD, colonoscopy Operative Findings/Diagnosis: HH x 12 cm, tics Specimen: yes Pt Tolerated Procedure Well: Yes Estimated Blood Loss: none Anesthesiologist: see record Anesthesia: moderate sedation Medication Given: fentanyl, see anesthesia record Implant(s) used?: No 50 yrs or older w/o bx or poly: Not Applicable 10yrs. F/U not recommended: Not Applicable If not recommended, why?: CRISTIANA CASPER Apr 16, 2017 12:53
--- NOTE | 2017-04-16 12:54 | Brief Operative Note ---
Immediate Post Operative Note Operative Note Chief Complaint: Anemia Pre-op Diagnosis: anemia Procedure: EGD/Bx, colon Post-op Diagnosis: HH x 12 cm, tics Post-op Diagnosis: same as pre-op Surgeon: nicolle Anesthesiologist: see report Anesthesia: moderate sedation Specimen: yes Complications: none Condition: stable Fluids: see anesthesia Estimated Blood Loss: none Drains: none Implant(s) used?: No CRISTIANA CASPER Apr 16, 2017 12:54
--- NOTE | 2017-04-16 19:22 | Geriatric Progress Note ---
Assessment/Plan Problems: (1) Gastrointestinal bleeding (2) Aortic valve replaced (3) Hypertension (4) Aortic stenosis, severe (5) Prerenal azotemia (6) Coronary arteriosclerosis (7) Acute kidney injury (8) Hyperlipidemia (9) Liver cirrhosis (10) Paroxysmal atrial fibrillation (11) HTN (hypertension) (12) UTI (urinary tract infection) (13) Anemia (14) History of left lower extremity amputation (15) Peripheral arterial disease Assessment/Plan Hct stable. S/p 3rd dose of Venofer. Pending capsule study. Reviewed bleeding sources with son, patient including possible Ward ulcers. Discussed management. On oral antibiotics for UTI. Significant ischemia at rest on arterial study but without discrete occlusions. Given patient's status invasive therapy not indicated. Reviewed with son, patient. Mobilizing with txs. Off metoprolol, Amiodarone continued for p a fib, sinus bradycardia. Discussed with: patient, family, hospital staff Subjective Interval Events Patient without specific c/o. Seen by P.T., O.T. today. EGD with large hiatal hernia, diverticulosis. No definite bleeding source. Capsule endoscopy for SB study ordered per Dr. Brunner. Adequate intake, also getting IV hydration for NPO status. Stools loose due to bowel prep. Constitutional: Denies: chills, pain, sweats, fever Respiratory: Denies: cough, orthopnea, shortness of breath Cardiovascular: Denies: chest pain, palpitations Gastrointestinal/Abdominal: Denies: abdominal pain Genitourinary: Denies: dysuria Geriatric Geriatric Last 24 Hour Vital Signs Date Time Temp Pulse Resp B/P (MAP) Pulse Ox O2 Delivery O2 Flow Rate FiO2 04/16/17 16:00 97.0 55 18 124/41 97 Room Air 04/16/17 15:54 52 04/16/17 13:30 97.0 53 15 137/46 99 Room Air 04/16/17 13:20 51 16 133/44 99 Room Air 04/16/17 13:10 52 20 141/46 98 Room Air 04/16/17 13:00 51 22 121/41 98 Simple Mask 6.0 04/16/17 12:55 46 16 102/36 100 Simple Mask 6.0 04/16/17 12:52 97.4 45 14 105/38 100 Simple Mask 6.0 04/16/17 12:52 53 18 100 9/11/17 12:00 97.7 55 18 128/53 93 Room Air 04/16/17 11:55 56 04/16/17 09:54 142/62 04/16/17 09:00 54 142/62 04/16/17 08:00 97.5 54 18 142/62 97 Room Air 04/16/17 07:52 55 04/16/17 04:36 98.1 60 21 159/61 96 Room Air 04/16/17 04:00 55 04/16/17 00:11 98.1 60 20 134/55 96 Room Air 04/16/17 00:00 57 04/15/17 21:54 57 158/70 04/15/17 20:58 98.1 62 20 158/70 Room Air 04/15/17 20:00 62 Intake and Output 04/16/17 04/17/17 19:00 07:00 Intake Total 1606.7 ml Output Total 0 ml Balance 1606.7 ml Intake Oral 240 ml IV Total 1366.7 ml Estimated Blood Loss 0 ml # Voids 2 # Bowel Movements 3 Laboratory Tests Test 04/16/17 07:10 White Blood Count 6.9 K/UL (4.8-10.8) Red Blood Count 3.88 M/UL (4.20-5.40) L Hemoglobin 10.2 G/DL (12.0-16.0) L Hematocrit 32.8 % (37.0-47.0) L Mean Corpuscular Volume 85 FL (80-99) Mean Corpuscular Hemoglobin 26.4 PG (27.0-31.0) L Mean Corpuscular Hemoglobin Concent 31.2 G/DL (32.0-36.0) L Red Cell Distribution Width 17.1 % (11.6-14.8) H Platelet Count 255 K/UL (150-450) Mean Platelet Volume 6.2 FL (6.5-10.1) L Neutrophils (%) (Auto) % (45.0-75.0) Lymphocytes (%) (Auto) % (20.0-45.0) Monocytes (%) (Auto) % (1.0-10.0) Eosinophils (%) (Auto) % (0.0-3.0) Basophils (%) (Auto) % (0.0-2.0) Differential Total Cells Counted 100 Neutrophils % (Manual) 72 % (45-75) Lymphocytes % (Manual) 11 % (20-45) L Monocytes % (Manual) 13 % (1-10) H Eosinophils % (Manual) 4 % (0-3) H Basophils % (Manual) 0 % (0-2) Band Neutrophils 0 % (0-8) Platelet Estimate Adequate Platelet Morphology Normal Hypochromasia 2+ Anisocytosis 1+ Macrocytosis 1+ Ovalocytes 1+ Stomatocytes 1+ Thyroid Stimulating Hormone (TSH) 4.110 uIU/mL (0.300-4.500) Free Thyroxine 1.33 ng/dL (0.86-1.85) Current Medications Medications (Trade) Dose Ordered Sig/Esther Route PRN Reason Start Time Stop Time Status Last Admin Dose Admin Amiodarone HCl (Cordarone) 200 mg DAILY ORAL 04/14/17 09:00 05/14/17 08:59 04/16/17 09:54 Atorvastatin Calcium (Lipitor) 10 mg BEDTIME ORAL 04/13/17 21:00 05/13/17 20:59 04/15/17 21:53 Cyanocobalamin (Vitamin B-12) 500 mcg DAILY ORAL 04/14/17 09:00 05/14/17 08:59 04/16/17 09:53 Dextrose (Dextrose 50%) STAT PRN IV Hypoglycemia 04/13/17 18:15 05/13/17 18:14 Dextrose/Sodium Chloride 1,000 ml @ 100 mls/hr Q10H IV 04/15/17 16:45 05/15/17 16:44 04/16/17 10:20 Docusate Sodium (Colace) 100 mg TWICE A DAY ORAL 04/14/17 09:00 05/14/17 08:59 04/16/17 18:00 Dorzolamide/ Timolol (Cosopt) 1 drop TWICE A DAY BOTH EYES 04/14/17 09:00 05/14/17 08:59 04/16/17 18:00 Duloxetine HCl (Cymbalta) 20 mg DAILY ORAL 04/14/17 09:00 05/14/17 08:59 04/16/17 09:54 EZETIMIBE (Zetia) 10 mg BEDTIME ORAL 04/13/17 21:00 05/13/17 20:59 04/15/17 21:53 Iron Sucrose 100 mg/Sodium Chloride 60 ml @ 240 mls/hr QHS IV 04/14/17 21:00 04/18/17 21:14 04/15/17 21:54 Latanoprost (Xalatan) 1 drop BEDTIME BOTH EYES 04/13/17 21:00 05/13/17 20:59 04/15/17 21:53 Levothyroxine Sodium (Synthroid) 75 mcg DAILY@0630 ORAL 04/14/17 06:30 05/14/17 06:29 04/16/17 05:57 Metoprolol Tartrate (Lopressor) 25 mg Q12HR ORAL 04/13/17 21:00 05/13/17 20:59 Nitrofurantoin (Macrodantin) 50 mg EVERY 8 HOURS ORAL 04/15/17 14:00 04/22/17 13:59 04/16/17 14:56 Pantoprazole (Protonix) 40 mg DAILY ORAL 04/14/17 09:00 05/14/17 08:59 04/16/17 09:54 Polyethylene Glycol (Miralax) 17 gm BEDTIME ORAL 04/16/17 21:00 05/16/17 20:59 Ramelteon (Rozerem) 8 mg QHS ORAL 04/13/17 21:00 05/13/17 20:59 04/15/17 21:53 Ramipril (Altace) 10 mg DAILY ORAL 04/14/17 09:00 05/14/17 08:59 04/16/17 09:54 Sitagliptin Phosphate (Januvia) 25 mg ACBREAKFAST ORAL 04/14/17 06:30 05/14/17 06:29 04/15/17 06:50 Vitamin D (Vitamin D) 2,000 intlu DAILY ORAL 04/14/17 09:00 05/14/17 08:59 04/16/17 09:53 Height (Feet): 5 Height (Inches): 5.00 Weight (Pounds): 140 General Appearance: well appearing, no apparent distress, alert, non-toxic Head: normocephalic, atraumatic Eyes: bilateral anicteric ENT: normal voice Neck: full range of motion, no mass Respiratory: lungs clear Cardiovascular: regular rate, rhythm Gastrointestinal: normal bowel sounds, non tender, soft, no mass, no organomegaly, non-distended Musculoskeletal: no calf tenderness, other - R foot warm Neurologic: no new focality LUBNA CLIFFORD Apr 16, 2017 19:22
--- NOTE | 2017-04-16 19:55 | Cardiology Progress Note ---
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 embolic cvas bradycardia hold anit plt and eliquis for now gi el so far neg excep diverticulosis tle show sinus janette iron infusion stool studies amio d/c bb tft fine d/w rn d/w dr elizondo tele reviwewed personlly Subjective Cardiovascular: Denies: chest pain, lightheadedness Respiratory: Denies: orthopnea, shortness of breath Gastrointestinal/Abdominal: Denies: abdominal pain Genitourinary: Denies: no symptoms Objective Last 24 Hour Vital Signs Date Time Temp Pulse Resp B/P (MAP) Pulse Ox O2 Delivery O2 Flow Rate FiO2 04/16/17 16:00 97.0 55 18 124/41 97 Room Air 04/16/17 15:54 52 04/16/17 13:30 97.0 53 15 137/46 99 Room Air 04/16/17 13:20 51 16 133/44 99 Room Air 04/16/17 13:10 52 20 141/46 98 Room Air 04/16/17 13:00 51 22 121/41 98 Simple Mask 6.0 04/16/17 12:55 46 16 102/36 100 Simple Mask 6.0 04/16/17 12:52 97.4 45 14 105/38 100 Simple Mask 6.0 04/16/17 12:52 53 18 100 04/16/17 12:00 97.7 55 18 128/53 93 Room Air 04/16/17 11:55 56 04/16/17 09:54 142/62 04/16/17 09:00 54 142/62 04/16/17 08:00 97.5 54 18 142/62 97 Room Air 04/16/17 07:52 55 04/16/17 04:36 98.1 60 21 159/61 96 Room Air 04/16/17 04:00 55 04/16/17 00:11 98.1 60 20 134/55 96 Room Air 04/16/17 00:00 57 04/15/17 21:54 57 158/70 04/15/17 20:58 98.1 62 20 158/70 Room Air 04/15/17 20:00 62 General Appearance: alert Neck: supple Cardiovascular: normal rate, regular rhythm Respiratory/Chest: lungs clear, normal breath sounds Abdomen: normal bowel sounds, non tender, soft Extremities: no swelling Intake and Output 04/16/17 04/17/17 19:00 07:00 Intake Total 1706.7 ml Output Total 0 ml Balance 1706.7 ml Intake Oral 240 ml IV Total 1466.7 ml Estimated Blood Loss 0 ml # Voids 2 # Bowel Movements 3 Laboratory Tests Test 04/16/17 07:10 White Blood Count 6.9 K/UL (4.8-10.8) Red Blood Count 3.88 M/UL (4.20-5.40) L Hemoglobin 10.2 G/DL (12.0-16.0) L Hematocrit 32.8 % (37.0-47.0) L Mean Corpuscular Volume 85 FL (80-99) Mean Corpuscular Hemoglobin 26.4 PG (27.0-31.0) L Mean Corpuscular Hemoglobin Concent 31.2 G/DL (32.0-36.0) L Red Cell Distribution Width 17.1 % (11.6-14.8) H Platelet Count 255 K/UL (150-450) Mean Platelet Volume 6.2 FL (6.5-10.1) L Neutrophils (%) (Auto) % (45.0-75.0) Lymphocytes (%) (Auto) % (20.0-45.0) Monocytes (%) (Auto) % (1.0-10.0) Eosinophils (%) (Auto) % (0.0-3.0) Basophils (%) (Auto) % (0.0-2.0) Differential Total Cells Counted 100 Neutrophils % (Manual) 72 % (45-75) Lymphocytes % (Manual) 11 % (20-45) L Monocytes % (Manual) 13 % (1-10) H Eosinophils % (Manual) 4 % (0-3) H Basophils % (Manual) 0 % (0-2) Band Neutrophils 0 % (0-8) Platelet Estimate Adequate Platelet Morphology Normal Hypochromasia 2+ Anisocytosis 1+ Macrocytosis 1+ Ovalocytes 1+ Stomatocytes 1+ Thyroid Stimulating Hormone (TSH) 4.110 uIU/mL (0.300-4.500) Free Thyroxine 1.33 ng/dL (0.86-1.85) DAWNA MURRAY Apr 16, 2017 19:55
[2017-04-16] MEDS: Miralax 17gm pkt ORAL SCH ×2 (20:31→20:52)
[2017-04-16] MEDS: Ramelteon 8mg tab (Approved for Delirium use only) ORAL SCH (20:31)
[2017-04-16] MEDS: Iron Sucrose 100 MG in NS 55 ML IV SCH (20:32)
[2017-04-17 00:05] VITALS: BP 126/50
--- NOTE | 2017-04-17 03:15 | Procedure Note ---
DATE OF PROCEDURE: 04/16/2017 GASTROENTEROLOGY PROCEDURE REPORT PROCEDURE: Upper gastrointestinal endoscopy with biopsy as well as colonoscopy. SURGEON: Eduar Brunner M.D. ANESTHESIA: Please see the separate anesthesiologist notes for details. PRE-ENDOSCOPIC DIAGNOSES: Anemia and history of heme-positive stools. POST-ENDOSCOPIC DIAGNOSES: 1. Large hiatal hernia measuring approximately 10 to 12 cm. 2. Status post random biopsies of the duodenum and the antrum. 3. Normal colonoscopy including views of the terminal ileum except for incidental diverticulosis. RECOMMENDATIONS: 1. Follow up biopsy results. 2. Proceed with capsule endoscopy to check the small bowel. PROCEDURE: The procedure, its risks, indications, alternatives, and possible complications including, but not limited to bleeding, infection, perforation, , and anesthesia complications were explained to the patient and informed consent was obtained. The patient was then sedated in the left lateral decubitus position and a diagnostic upper endoscope was introduced into the oropharynx and advanced to the duodenum without difficulty. The endoscope was then gradually withdrawn and the mucosa was examined carefully. Examination of the upper gastrointestinal mucosa revealed a large hiatal hernia, measuring approximately 10 to 12 cm. There were no associated Ward ulcers or gastroesophageal reflux associated with this or hernia. Biopsies of the small bowel and the antrum were sent to pathology for review. Thereafter, rectal exam was done and the colonoscope was introduced into the rectum and advanced into the cecum and then the terminal ileum without difficulty. The colonoscope was then gradually withdrawn and the mucosa was examined carefully. Examination of the terminal ileum mucosa as well as the colonic mucosa did not reveal any mucosal ulcers or abnormalities. Mild to moderate left-sided diverticulosis however was seen. Retroflexed view of the rectum was unremarkable. The colonoscope was removed and the patient was sent to recovery in good condition. COMPLICATIONS: None. RECOMMENDATIONS: 1. Follow up biopsy results. 2. Proceed with capsule endoscopy to evaluate the small bowel for bleeding sources. Eduar Brunner M.D. DR: Valerie JOB#: [id number] CC:
[2017-04-17 04:30] VITALS: BP 141/57
[2017-04-17] MEDS: Nitrofurantoin Macrocrystal 50mg cap ORAL SCH ×3 (05:59→21:42)
[2017-04-17] MEDS: sitaGLIPtin 25mg tab ORAL SCH (05:59)
[2017-04-17 08:38] VITALS: BP 143/69
[2017-04-17] MEDS: D5 1/2NS 1,000 ML IV SCH (09:03)
[2017-04-17] MEDS: Cosopt Opth Soln 10 mL Btl BOTH EYES SCH ×2 (09:04→17:50)
--- NOTE | 2017-04-17 09:11 | General Progress Note ---
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 for termite treater helper systemic anticoagulation - constipation - will need termite treater helper bowel regimen Recommendations - IV Iron - OK to resume anticoagulation - follow CBC - Capsule endo today - IV hydration Subjective Allergies: Coded Allergies: No Known Allergies (Verified Allergy, Unknown, 03/12/10) Subjective Feels OK no new complaints for capsule endoscopy today Objective Last 24 Hour Vital Signs Date Time Temp Pulse Resp B/P (MAP) Pulse Ox O2 Delivery O2 Flow Rate FiO2 04/17/17 08:38 97.3 58 18 143/69 99 Room Air 04/17/17 04:30 97.0 61 20 141/57 96 Room Air 04/17/17 03:56 59 04/17/17 00:05 97.7 55 20 126/50 98 Room Air 04/16/17 23:50 55 04/16/17 21:00 53 04/16/17 20:13 97.7 56 20 128/50 96 Room Air 04/16/17 16:00 97.0 55 18 124/41 97 Room Air 04/16/17 15:54 52 04/16/17 13:30 97.0 53 15 137/46 99 Room Air 04/16/17 13:20 51 16 133/44 99 Room Air 04/16/17 13:10 52 20 141/46 98 Room Air 04/16/17 13:00 51 22 121/41 98 Simple Mask 6.0 04/16/17 12:55 46 16 102/36 100 Simple Mask 6.0 04/16/17 12:52 97.4 45 14 105/38 100 Simple Mask 6.0 04/16/17 12:52 53 18 100 04/16/17 12:00 97.7 55 18 128/53 93 Room Air 04/16/17 11:55 56 04/16/17 09:54 142/62 Height (Feet): 5 Height (Inches): 5.00 Weight (Pounds): 140 Objective Thin WW NCAT supple CTA RR abd soft ND (+) BKA (L) CRISTIANA CASPER Apr 17, 2017 09:11
--- NOTE | 2017-04-17 09:34 | Diagnostic Imaging Report ---
APPROVED REPORT CPT Code: 33743 Symptoms PAD RIGHT LEG: Common femoral artery waveform analysis is abnormal at rest indicative of illiac disease. Color flow duplex sonography reveals diffuse plaque throughout the superficial femoral and popliteal arteries. There is no evidence of stenosis or occlusion within these segments. The tibioperoneal trunk was not well visualized. The distal posterior tibial and dorsalis pedis arteries are also calcified. Doppler tibial artery waveform analysis is compatible with severe ischemia at rest.
[2017-04-17 10:22] LABS: BASOPHILS % (AUTO) 0.7 % (0.0-2.0); EOSINOPHILS % (AUTO) 2.2 % (0.0-3.0); LYMPHOCYTES % (AUTO) 5.7 % (20.0-45.0); MEAN CORPUSCULAR HEMOGLOBIN 25.9 PG (27.0-31.0); MEAN CORPUSCULAR HGB CONC 30.8 G/DL (32.0-36.0); MEAN CORPUSCULAR VOLUME 84 FL (80-99); MEAN PLATELET VOLUME 5.2 FL (6.5-10.1); MONOCYTES % (AUTO) 8.1 % (1.0-10.0); NEUTROPHILS % (AUTO) 83.4 % (45.0-75.0); PLATELET COUNT 240 K/UL (150-450); RED BLOOD COUNT 3.82 M/UL (4.20-5.40); RED CELL DISTRIBUTION WIDTH 17.5 % (11.6-14.8); WHITE BLOOD COUNT 10.3 K/UL (4.8-10.8)
[2017-04-17] MEDS: Vitamin B-12 500mcg tab ORAL SCH (11:25)
[2017-04-17] MEDS: Vitamin D 1000 IU Tab ORAL SCH (11:32)
[2017-04-17] MEDS: Ramipril 5mg cap ORAL SCH (11:33)
[2017-04-17] MEDS: Docusate 100mg cap ORAL SCH ×2 (11:34→17:49)
[2017-04-17] MEDS: Amiodarone 200mg tab ORAL SCH (11:34)
--- NOTE | 2017-04-17 12:18 | Wound Care Consultation ---
Wound Assessment Wound Assessment : Wound Number: 1 Wound Present on Admission: No New Wound: Yes Status Change of Wound: No Wound Location Body Site Modif: right Wound Location Body Site: heel Wound Type: pressure ulcer Allison Test: Does not Allison Pressure Ulcer Stage: I Wound Length: 2.5 Wound Width: 2.5 Percent of Wound [place]/Red: 100 Wound Drainage Amount: None Wound Drainage Odor: None/Absent Tissue Surrounding Wound: Intact Wound General Appearance: Reddened Wound Comment #1 Right heel stage I pressure ulcer Recommendation -Local wound care per protocol -Optimize nutrition -Keep clean and dry -Turn and reposition -Low air loss mattress -Offload right heel -Heel protector on right heel -Assess and f/u accordingly for any changes ROYAL ISABEL RN Apr 17, 2017 12:18
[2017-04-17 12:32] VITALS: BP 148/67
--- NOTE | 2017-04-17 16:16 | Cardiology Progress Note ---
Assessment/Plan Assessment/Plan tavr pvd s/p well logging mud analysis captain paf diastolic failure iron deff anemia hs of embolic cvas bradycardia resume anti plt and eliquis when ok by gi heplock ivf low dose diuretic gi el so far neg except diverticulosis tele show sinus janette iron infusion amio tft fine hr is fine tele reviwewed personlly Subjective Cardiovascular: Denies: chest pain, lightheadedness, palpitations Respiratory: Denies: shortness of breath Gastrointestinal/Abdominal: Denies: abdominal pain Genitourinary: Denies: burning Objective Last 24 Hour Vital Signs Date Time Temp Pulse Resp B/P (MAP) Pulse Ox O2 Delivery O2 Flow Rate FiO2 04/17/17 12:32 97.7 60 18 148/67 98 Room Air 04/17/17 12:00 60 04/17/17 11:33 143/69 04/17/17 08:38 97.3 58 18 143/69 99 Room Air 04/17/17 08:00 61 04/17/17 04:30 97.0 61 20 141/57 96 Room Air 04/17/17 03:56 59 04/17/17 00:05 97.7 55 20 126/50 98 Room Air 04/16/17 23:50 55 04/16/17 21:00 53 04/16/17 20:13 97.7 56 20 128/50 96 Room Air General Appearance: no apparent distress, alert Cardiovascular: normal rate Respiratory/Chest: crackles/rales - right base Abdomen: normal bowel sounds, non tender, soft Extremities: no swelling Intake and Output 04/17/17 04/18/17 19:00 07:00 Intake Total 120 ml Balance 120 ml Intake Oral 120 ml # Voids 2 Laboratory Tests Test 04/17/17 10:15 White Blood Count 10.3 K/UL (4.8-10.8) Red Blood Count 3.82 M/UL (4.20-5.40) L Hemoglobin 9.9 G/DL (12.0-16.0) L Hematocrit 32.2 % (37.0-47.0) L Mean Corpuscular Volume 84 FL (80-99) Mean Corpuscular Hemoglobin 25.9 PG (27.0-31.0) L Mean Corpuscular Hemoglobin Concent 30.8 G/DL (32.0-36.0) L Red Cell Distribution Width 17.5 % (11.6-14.8) H Platelet Count 240 K/UL (150-450) Mean Platelet Volume 5.2 FL (6.5-10.1) L Neutrophils (%) (Auto) 83.4 % (45.0-75.0) H Lymphocytes (%) (Auto) 5.7 % (20.0-45.0) L Monocytes (%) (Auto) 8.1 % (1.0-10.0) Eosinophils (%) (Auto) 2.2 % (0.0-3.0) Basophils (%) (Auto) 0.7 % (0.0-2.0) DAWNA MURRAY Apr 17, 2017 16:16
[2017-04-17 16:46] VITALS: BP 152/67
[2017-04-17 20:00] VITALS: BP 135/59
[2017-04-17] MEDS ORDERED: Tubing IV Secondary IV ONE (20:04)
[2017-04-17] MEDS ORDERED: D5 1/2NS 1000ml IV ONE (20:04)
--- NOTE | 2017-04-17 20:23 | General Progress Note ---
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 for terminal operator systemic anticoagulation - constipation - will need terminal operator bowel regimen Recommendations - IV Iron - OK to resume anticoagulation - follow CBC - f/u capsule results next week - IV hydration - d/c planning per PMD Subjective Allergies: Coded Allergies: No Known Allergies (Verified Allergy, Unknown, 03/12/10) Subjective Feels OK no new complaints had capsule endoscopy Objective Last 24 Hour Vital Signs Date Time Temp Pulse Resp B/P (MAP) Pulse Ox O2 Delivery O2 Flow Rate FiO2 04/17/17 20:00 97.7 60 18 135/59 94 Room Air 6.0 04/17/17 16:46 97.7 61 18 152/67 97 Room Air 04/17/17 16:00 57 04/17/17 12:32 97.7 60 18 148/67 98 Room Air 04/17/17 12:00 60 04/17/17 11:33 143/69 04/17/17 08:38 97.3 58 18 143/69 99 Room Air 04/17/17 08:00 61 04/17/17 04:30 97.0 61 20 141/57 96 Room Air 04/17/17 03:56 59 04/17/17 00:05 97.7 55 20 126/50 98 Room Air 04/16/17 23:50 55 04/16/17 21:00 53 Intake and Output 04/17/17 04/18/17 19:00 07:00 Intake Total 640 ml Balance 640 ml Intake Oral 240 ml IV Total 400 ml # Voids 3 Laboratory Tests 04/17/17 10:15: White Blood Count 10.3, Red Blood Count 3.82L, Hemoglobin 9.9L, Hematocrit 32.2L , Mean Corpuscular Volume 84, Mean Corpuscular Hemoglobin 25.9L, Mean Corpuscular Hemoglobin Concent 30.8L, Red Cell Distribution Width 17.5H, Platelet Count 240, Mean Platelet Volume 5.2L, Neutrophils (%) (Auto) 83.4H, Lymphocytes (%) (Auto) 5.7L, Monocytes (%) (Auto) 8.1, Eosinophils (%) (Auto) 2.2, Basophils (%) (Auto) 0.7 Height (Feet): 5 Height (Inches): 5.00 Weight (Pounds): 140 Objective Thin WW NCAT supple CTA RR abd soft ND (+) LORENZO (L) CRISTIANA CASPER Apr 17, 2017 20:23
[2017-04-17] MEDS: Miralax 17gm pkt ORAL SCH (21:00)
--- NOTE | 2017-04-17 21:22 | Geriatric Progress Note ---
Assessment/Plan Problems: (1) Gastrointestinal bleeding (2) Aortic valve replaced (3) Hypertension (4) Aortic stenosis, severe (5) Prerenal azotemia (6) Coronary arteriosclerosis (7) Acute kidney injury (8) Hyperlipidemia (9) Liver cirrhosis (10) Paroxysmal atrial fibrillation (11) HTN (hypertension) (12) UTI (urinary tract infection) (13) Anemia (14) History of left lower extremity amputation (15) Peripheral arterial disease Assessment/Plan Responding well to tx. Should be stable for d/c tomorrow. Complete 5th Venofer dose tomorrow am. Recheck labs in am. D/c with nitrofurantoin and usual meds, without betablocker. Dictated #[id number] Discussed with: patient, hospital staff Subjective Interval Events Patient denies c/o except loose stool due to bowel prep. No discomfort. Capsule endoscopy done, results pending. Betablocker d/c per Dr. Patino, small IV dose of Lasix for possible fluid retention. Eating well. Redness of R heel per wound care, interventions initiated. Continues on nitrofurantoin for UTI, Venofer for Fe deficiency. Constitutional: Denies: chills, pain, sweats, fever Respiratory: Denies: cough, orthopnea, shortness of breath Cardiovascular: Denies: chest pain, palpitations Gastrointestinal/Abdominal: Denies: abdominal pain Genitourinary: Denies: dysuria Sleep: Reports: sleeps well Geriatric Geriatric Last 24 Hour Vital Signs Date Time Temp Pulse Resp B/P (MAP) Pulse Ox O2 Delivery O2 Flow Rate FiO2 04/17/17 20:00 97.7 60 18 135/59 94 Room Air 6.0 04/17/17 19:31 60 04/17/17 16:46 97.7 61 18 152/67 97 Room Air 04/17/17 16:00 57 04/17/17 12:32 97.7 60 18 148/67 98 Room Air 04/17/17 12:00 60 04/17/17 11:33 143/69 04/17/17 08:38 97.3 58 18 143/69 99 Room Air 04/17/17 08:00 61 04/17/17 04:30 97.0 61 20 141/57 96 Room Air 04/17/17 03:56 59 04/17/17 00:05 97.7 55 20 126/50 98 Room Air 04/16/17 23:50 55 Intake and Output 04/17/17 04/18/17 19:00 07:00 Intake Total 640 ml Balance 640 ml Intake Oral 240 ml IV Total 400 ml # Voids 3 Laboratory Tests Test 04/17/17 10:15 White Blood Count 10.3 K/UL (4.8-10.8) Red Blood Count 3.82 M/UL (4.20-5.40) L Hemoglobin 9.9 G/DL (12.0-16.0) L Hematocrit 32.2 % (37.0-47.0) L Mean Corpuscular Volume 84 FL (80-99) Mean Corpuscular Hemoglobin 25.9 PG (27.0-31.0) L Mean Corpuscular Hemoglobin Concent 30.8 G/DL (32.0-36.0) L Red Cell Distribution Width 17.5 % (11.6-14.8) H Platelet Count 240 K/UL (150-450) Mean Platelet Volume 5.2 FL (6.5-10.1) L Neutrophils (%) (Auto) 83.4 % (45.0-75.0) H Lymphocytes (%) (Auto) 5.7 % (20.0-45.0) L Monocytes (%) (Auto) 8.1 % (1.0-10.0) Eosinophils (%) (Auto) 2.2 % (0.0-3.0) Basophils (%) (Auto) 0.7 % (0.0-2.0) Current Medications Medications (Trade) Dose Ordered Sig/Esther Route PRN Reason Start Time Stop Time Status Last Admin Dose Admin Amiodarone HCl (Cordarone) 200 mg DAILY ORAL 04/14/17 09:00 05/14/17 08:59 04/17/17 11:34 Atorvastatin Calcium (Lipitor) 10 mg BEDTIME ORAL 04/13/17 21:00 05/13/17 20:59 04/16/17 20:31 Cyanocobalamin (Vitamin B-12) 500 mcg DAILY ORAL 04/14/17 09:00 05/14/17 08:59 04/17/17 11:25 Dextrose (Dextrose 50%) STAT PRN IV Hypoglycemia 04/13/17 18:15 05/13/17 18:14 Docusate Sodium (Colace) 100 mg TWICE A DAY ORAL 04/14/17 09:00 05/14/17 08:59 04/17/17 17:49 Dorzolamide/ Timolol (Cosopt) 1 drop TWICE A DAY BOTH EYES 04/14/17 09:00 05/14/17 08:59 04/17/17 17:50 Duloxetine HCl (Cymbalta) 20 mg DAILY ORAL 04/14/17 09:00 05/14/17 08:59 04/17/17 11:33 EZETIMIBE (Zetia) 10 mg BEDTIME ORAL 04/13/17 21:00 05/13/17 20:59 04/16/17 20:31 Iron Sucrose 100 mg/Sodium Chloride 60 ml @ 240 mls/hr QHS IV 04/14/17 21:00 04/18/17 21:14 04/16/17 20:32 Latanoprost (Xalatan) 1 drop BEDTIME BOTH EYES 04/13/17 21:00 05/13/17 20:59 04/16/17 20:31 Levothyroxine Sodium (Synthroid) 75 mcg DAILY@0630 ORAL 04/14/17 06:30 05/14/17 06:29 04/16/17 05:57 Nitrofurantoin (Macrodantin) 50 mg EVERY 8 HOURS ORAL 04/15/17 14:00 04/22/17 13:59 04/17/17 14:23 Pantoprazole (Protonix) 40 mg DAILY ORAL 04/14/17 09:00 05/14/17 08:59 04/17/17 11:26 Polyethylene Glycol (Miralax) 17 gm BEDTIME ORAL 04/16/17 21:00 05/16/17 20:59 Ramelteon (Rozerem) 8 mg QHS ORAL 04/13/17 21:00 05/13/17 20:59 04/16/17 20:31 Ramipril (Altace) 10 mg DAILY ORAL 04/14/17 09:00 05/14/17 08:59 04/17/17 11:33 Sitagliptin Phosphate (Januvia) 25 mg ACBREAKFAST ORAL 04/14/17 06:30 05/14/17 06:29 04/15/17 06:50 Vitamin D (Vitamin D) 2,000 intlu DAILY ORAL 04/14/17 09:00 05/14/17 08:59 04/17/17 11:32 Height (Feet): 5 Height (Inches): 5.00 Weight (Pounds): 140 General Appearance: no apparent distress, alert, non-toxic Head: normocephalic, atraumatic Eyes: bilateral anicteric ENT: normal voice Neck: full range of motion, no mass Respiratory: lungs clear Cardiovascular: regular rate, rhythm, bradycardia, systolic murmur Gastrointestinal: normal bowel sounds, non tender, soft, no mass, no organomegaly, no bruit, non-distended, no guarding Musculoskeletal: no calf tenderness Edema: no edema noted Generalized Neurologic: no new focality Skin: feet - stage I R heel, no tenderness, no bogginess. LUBNA CLIFFORD Apr 17, 2017 21:22
[2017-04-17] MEDS ORDERED: MACRODANTIN50 MG ORAL (21:39)
[2017-04-17] MEDS ORDERED: AZOPT10 ML OP (21:39)
[2017-04-17] MEDS ORDERED: COMBIGAN EYE DRO5 ML OP (21:39)
[2017-04-17] MEDS ORDERED: VITAMIN B-12500 MCG ORAL (21:39)
[2017-04-17] MEDS ORDERED: LATANOPROST2.5 ML BOTH EYES (21:39)
[2017-04-17] MEDS ORDERED: ASPIR 8181 MG ORAL (21:39)
[2017-04-17] MEDS: Ramelteon 8mg tab (Approved for Delirium use only) ORAL SCH (21:42)
[2017-04-17] MEDS: Iron Sucrose 100 MG in NS 55 ML IV SCH (21:42)
[2017-04-18] VITALS: BP 119/47
[2017-04-18 04:00] VITALS: BP 148/68
[2017-04-18] MEDS: Nitrofurantoin Macrocrystal 50mg cap ORAL SCH (05:59)
[2017-04-18] MEDS: sitaGLIPtin 25mg tab ORAL SCH (05:59)
[2017-04-18 08:12] LABS: EOSINOPHILS % (AUTO) 2.8 % (0.0-3.0); LYMPHOCYTES % (AUTO) 9.5 % (20.0-45.0); MEAN CORPUSCULAR HEMOGLOBIN 27.1 PG (27.0-31.0); MEAN CORPUSCULAR HGB CONC 31.8 G/DL (32.0-36.0); MEAN CORPUSCULAR VOLUME 85 FL (80-99); MEAN PLATELET VOLUME 6.2 FL (6.5-10.1); MONOCYTES % (AUTO) 9.4 % (1.0-10.0); NEUTROPHILS % (AUTO) 77.4 % (45.0-75.0); PLATELET COUNT 203 K/UL (150-450); RED BLOOD COUNT 3.66 M/UL (4.20-5.40); RED CELL DISTRIBUTION WIDTH 18.3 % (11.6-14.8); WHITE BLOOD COUNT 7.4 K/UL (4.8-10.8)
[2017-04-18 08:26] LABS: ALANINE AMINOTRANSFERASE 11 U/L (3-33); ANION GAP 14 (5-15); ASPARTATE AMINO TRANSFERASE 15 U/L (5-40); CARBON DIOXIDE 22 mEQ/L (20-30); CHLORIDE 107 mEQ/L (98-107); HEMOLYSIS 0; SODIUM 143 mEQ/L (135-145); TOTAL PROTEIN 6.6 g/dL (6.6-8.7)
[2017-04-18 08:55] VITALS: BP 148/66
[2017-04-18] MEDS ORDERED: Iron Sucrose 100 MG in NS 55 ML IV ONE (09:00)
[2017-04-18] MEDS: Ramipril 5mg cap ORAL SCH (09:14)
[2017-04-18] MEDS: Vitamin B-12 500mcg tab ORAL SCH (09:14)
[2017-04-18] MEDS: Docusate 100mg cap ORAL SCH (09:15)
[2017-04-18] MEDS: Vitamin D 1000 IU Tab ORAL SCH (09:15)
[2017-04-18] MEDS: Amiodarone 200mg tab ORAL SCH (09:15)
[2017-04-18] MEDS: Cosopt Opth Soln 10 mL Btl BOTH EYES SCH (09:16)
[2017-04-18] MEDS ORDERED: KCl 10% 20 mEq/15ml liquid NG ONE ×2 (10:00→13:00)
--- NOTE | 2017-04-18 12:00 | Geriatric Progress Note ---
Assessment/Plan Problems: (1) Gastrointestinal bleeding (2) Aortic valve replaced (3) Hypertension (4) Aortic stenosis, severe (5) Prerenal azotemia (6) Coronary arteriosclerosis (7) Acute kidney injury (8) Hyperlipidemia (9) Liver cirrhosis (10) Paroxysmal atrial fibrillation (11) HTN (hypertension) (12) UTI (urinary tract infection) (13) Anemia (14) History of left lower extremity amputation (15) Peripheral arterial disease Discussed with: hospital staff Subjective Interval Events Labs reviewed. Hct stable. Hypokalemia likely due to combination of loose stools from bowel prep and IV Lasix given yesterday. Orders given for IV, po K repletion. Appears OK for d/c after KCL, Venofer administration today. Geriatric Geriatric Last 24 Hour Vital Signs Date Time Temp Pulse Resp B/P (MAP) Pulse Ox O2 Delivery O2 Flow Rate FiO2 04/18/17 09:14 148/66 04/18/17 08:55 97.5 66 18 148/66 96 Room Air 04/18/17 08:00 66 04/18/17 04:00 97.5 63 21 148/68 96 Room Air 6.0 04/18/17 03:59 58 04/18/17 00:00 97.5 64 21 119/47 92 Room Air 04/17/17 23:51 65 04/17/17 20:00 97.7 60 18 135/59 94 Room Air 6.0 04/17/17 19:31 60 04/17/17 16:46 97.7 61 18 152/67 97 Room Air 04/17/17 16:00 57 04/17/17 12:32 97.7 60 18 148/67 98 Room Air 04/17/17 12:00 60 Intake and Output 04/18/17 04/19/17 19:00 07:00 Intake Total 120 ml Balance 120 ml Intake Oral 120 ml # Voids 1 # Bowel Movements 2 Laboratory Tests Test 04/18/17 07:50 White Blood Count 7.4 K/UL (4.8-10.8) Red Blood Count 3.66 M/UL (4.20-5.40) L Hemoglobin 9.9 G/DL (12.0-16.0) L Hematocrit 31.2 % (37.0-47.0) L Mean Corpuscular Volume 85 FL (80-99) Mean Corpuscular Hemoglobin 27.1 PG (27.0-31.0) Mean Corpuscular Hemoglobin Concent 31.8 G/DL (32.0-36.0) L Red Cell Distribution Width 18.3 % (11.6-14.8) H Platelet Count 203 K/UL (150-450) Mean Platelet Volume 6.2 FL (6.5-10.1) L Neutrophils (%) (Auto) 77.4 % (45.0-75.0) H Lymphocytes (%) (Auto) 9.5 % (20.0-45.0) L Monocytes (%) (Auto) 9.4 % (1.0-10.0) Eosinophils (%) (Auto) 2.8 % (0.0-3.0) Basophils (%) (Auto) 1.0 % (0.0-2.0) Sodium Level 143 mEQ/L (135-145) Potassium Level 3.0 mEQ/L (3.4-4.9) L Chloride Level 107 mEQ/L (98-107) Carbon Dioxide Level 22 mEQ/L (20-30) Anion Gap 14 (5-15) Blood Urea Nitrogen 9 mg/dL (7-23) Creatinine 1.0 mg/dL (0.5-0.9) H Estimat Glomerular Filtration Rate mL/min (>60) Glucose Level 137 mg/dL (74-106) H Calcium Level 9.0 mg/dL (8.6-10.2) Total Bilirubin 0.2 mg/dL (0.0-1.2) Aspartate Amino Transf (AST/SGOT) 15 U/L (5-40) Alanine Aminotransferase (ALT/SGPT) 11 U/L (3-33) Alkaline Phosphatase 79 U/L (35-104) Total Protein 6.6 g/dL (6.6-8.7) Albumin 3.4 g/dL (3.5-5.2) L Globulin 3.2 g/dL Albumin/Globulin Ratio 1.0 (1.0-2.7) Current Medications Medications (Trade) Dose Ordered Sig/Esther Route PRN Reason Start Time Stop Time Status Last Admin Dose Admin Amiodarone HCl (Cordarone) 200 mg DAILY ORAL 04/14/17 09:00 05/14/17 08:59 04/18/17 09:15 Atorvastatin Calcium (Lipitor) 10 mg BEDTIME ORAL 04/13/17 21:00 05/13/17 20:59 04/17/17 21:42 Cyanocobalamin (Vitamin B-12) 500 mcg DAILY ORAL 04/14/17 09:00 05/14/17 08:59 04/18/17 09:14 Dextrose (Dextrose 50%) STAT PRN IV Hypoglycemia 04/13/17 18:15 05/13/17 18:14 Docusate Sodium (Colace) 100 mg TWICE A DAY ORAL 04/14/17 09:00 05/14/17 08:59 04/18/17 09:15 Dorzolamide/ Timolol (Cosopt) 1 drop TWICE A DAY BOTH EYES 04/14/17 09:00 05/14/17 08:59 04/18/17 09:16 Duloxetine HCl (Cymbalta) 20 mg DAILY ORAL 04/14/17 09:00 05/14/17 08:59 04/18/17 09:14 EZETIMIBE (Zetia) 10 mg BEDTIME ORAL 04/13/17 21:00 05/13/17 20:59 04/17/17 21:42 Latanoprost (Xalatan) 1 drop BEDTIME BOTH EYES 04/13/17 21:00 05/13/17 20:59 04/17/17 21:42 Levothyroxine Sodium (Synthroid) 75 mcg DAILY@0630 ORAL 04/14/17 06:30 05/14/17 06:29 04/18/17 05:59 Nitrofurantoin (Macrodantin) 50 mg EVERY 8 HOURS ORAL 04/15/17 14:00 04/22/17 13:59 04/18/17 05:59 Pantoprazole (Protonix) 40 mg DAILY ORAL 04/14/17 09:00 05/14/17 08:59 04/18/17 09:15 Polyethylene Glycol (Miralax) 17 gm BEDTIME ORAL 04/16/17 21:00 05/16/17 20:59 Potassium Chloride 100 ml @ 100 mls/hr Q1H IVPB 04/18/17 10:00 04/18/17 11:59 04/18/17 10:38 Potassium Chloride (KCl 10% 20 mEq oral solution) 20 meq ONCE ONCE NG 04/18/17 13:00 04/18/17 13:01 Ramelteon (Rozerem) 8 mg QHS ORAL 04/13/17 21:00 05/13/17 20:59 04/17/17 21:42 Ramipril (Altace) 10 mg DAILY ORAL 04/14/17 09:00 05/14/17 08:59 04/18/17 09:14 Sitagliptin Phosphate (Januvia) 25 mg ACBREAKFAST ORAL 04/14/17 06:30 05/14/17 06:29 04/18/17 05:59 Vitamin D (Vitamin D) 2,000 intlu DAILY ORAL 04/14/17 09:00 05/14/17 08:59 04/18/17 09:15 Height (Feet): 5 Height (Inches): 5.00 Weight (Pounds): 140 LUBNA CLIFFORD Apr 18, 2017 12:00
[2017-04-18 12:09] VITALS: BP 140/60
[2017-04-18] MEDS ORDERED: Tubing IV Secondary IV ONE (13:29)
--- NOTE | 2017-04-18 16:32 | General Progress Note ---
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 engineer systemic anticoagulation - constipation - will need mission systems engineer bowel regimen Recommendations - IV Iron - OK to resume anticoagulation - follow CBC - d/c planning per PMD Subjective Allergies: Coded Allergies: No Known Allergies (Verified Allergy, Unknown, 03/12/10) Subjective Feels OK no new complaints had capsule endoscopy yesterday just showed a duodenal polyp Objective Last 24 Hour Vital Signs Date Time Temp Pulse Resp B/P (MAP) Pulse Ox O2 Delivery O2 Flow Rate FiO2 04/18/17 12:09 97.2 64 18 140/60 97 Room Air 04/18/17 09:14 148/66 04/18/17 08:55 97.5 66 18 148/66 96 Room Air 04/18/17 08:00 66 04/18/17 04:00 97.5 63 21 148/68 96 Room Air 6.0 04/18/17 03:59 58 04/18/17 00:00 97.5 64 21 119/47 92 Room Air 04/17/17 23:51 65 04/17/17 20:00 97.7 60 18 135/59 94 Room Air 6.0 04/17/17 19:31 60 04/17/17 16:46 97.7 61 18 152/67 97 Room Air Intake and Output 04/18/17 04/19/17 19:00 07:00 Intake Total 400 ml Balance 400 ml Intake Oral 240 ml IV Total 160 ml # Voids 3 # Bowel Movements 2 Laboratory Tests 04/18/17 07:50: White Blood Count 7.4, Red Blood Count 3.66L, Hemoglobin 9.9L, Hematocrit 31.2L , Mean Corpuscular Volume 85, Mean Corpuscular Hemoglobin 27.1, Mean Corpuscular Hemoglobin Concent 31.8L, Red Cell Distribution Width 18.3H, Platelet Count 203, Mean Platelet Volume 6.2L, Neutrophils (%) (Auto) 77.4H, Lymphocytes (%) (Auto) 9.5L, Monocytes (%) (Auto) 9.4, Eosinophils (%) (Auto) 2.8, Basophils (%) (Auto) 1.0, Sodium Level 143, Potassium Level 3.0L, Chloride Level 107, Carbon Dioxide Level 22, Anion Gap 14, Blood Urea Nitrogen 9, Creatinine 1.0H, Estimat Glomerular Filtration Rate , Glucose Level 137H, Calcium Level 9.0, Total Bilirubin 0.2, Aspartate Amino Transf (AST/SGOT) 15, Alanine Aminotransferase (ALT/SGPT) 11, Alkaline Phosphatase 79, Total Protein 6.6, Albumin 3.4L, Globulin 3.2, Albumin/Globulin Ratio 1.0 Height (Feet): 5 Height (Inches): 5.00 Weight (Pounds): 140 Objective Thin WW NCAT supple CTA RR abd soft ND (+) JESSIEA (L) CRISTIANA CASPER Apr 18, 2017 16:32
--- NOTE | 2017-04-18 21:31 | Discharge Summary ---
DATE OF ADMISSION: 04/13/2017 DATE OF DISCHARGE: 04/18/2017 DISCHARGE DIAGNOSES: 1. Symptomatic iron-deficiency anemia likely associated with chronic low-grade gastrointestinal blood loss, suspect Ward ulceration of hiatal hernia, consider small-bowel lesion. 2. Severe iron-deficiency with admitting iron saturation of 4%. 3. Escherichia coli urinary tract infection. 4. Lethargy and weakness associated with above, resolved. 5. Bradycardia associated with beta-julianna usage. Beta-julianna discontinued. 6. Mild metabolic encephalopathy, resolved. 7. Mild cognitive impairment versus early dementia associated primarily with cerebrovascular etiology. Consider component of prior alcohol abuse. Consider element of possible primary degenerative process. 8. Hypertension. 9. Hyperlipidemia. 10. 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 11. Aortic stenosis, status post recent transcatheter aortic valve replacement. 12. Right lower extremity embolic complication during transcatheter aortic valve replacement in the setting of established peripheral arterial disease, requiring angioplasty. 13. Recurrent critical right lower extremity ischemia with increasing ischemic pain requiring transarterial invasive procedure several months ago. 14. 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 15. Paroxysmal atrial fibrillation. 16. History of old myocardial infarction. 17. History of old cerebrovascular event. 18. History of prior peptic ulcer disease with hemorrhage, possibly nonsteroidal anti-inflammatory related. 19. Prior history of iron-deficiency, requiring Venofer infusion. 20. Gallstones. 21. Recurrent urinary tract infections. 22. History of cirrhosis on imaging without hepatocellular enzyme abnormalities but with distant history of heavy alcohol use. 23. Bilateral presbycusis. 24. Glaucoma. 25. Deconditioning. 26. Noninvasive arterial study of the right lower extremity confirming diffuse arteriovascular disease and resting ischemia without discrete stenotic or occlusive lesions. 27. Transient hypokalemia due to bowel prep and Lasix treatment in hospital, supplemented. History Of Present Illness: The patient is an 86-year-old woman who was noted as an outpatient to have guaiac-positive stool and subsequently was noted to have significant anemia and iron-deficiency on laboratory studies. The patient had only vague symptoms of weakness and excessive fatigue. She was brought to the emergency room and found to have hematocrit of 22.6%, which is considered extremely low given her known cerebrovascular and cardiovascular disease as well as her severe peripheral arterial insufficiency. The patient is admitted for transfusion and further evaluation. In the emergency room, the patient was also noted to have apparent urinary tract infection for which we started her on ceftriaxone empirically. Hospital Course: The patient was transfused 2 units of packed red blood cells with hematocrit stabilizing in the 30% range consistent with prior baseline. She was also given a course of 5 doses of 100 mg Venofer for her severe iron-deficiency. The patient became much brighter and engaged after these interventions indicating a functional response to the therapy. A noninvasive vascular study of the right lower extremity confirmed her critical ischemia at rest without discrete lesion. The patient developed mild nonblanching redness of the right heel, but there was no bogginess and no tenderness and it was likely this lesion should resolve with excess pressure avoidance alone. The patient's urinary tract grew out E. coli which was pansensitive and the patient was converted from ceftriaxone to nitrofurantoin 50 mg q.8 hours. Gastrointestinal consultation was obtained from Dr. Eduar Brunner and upper endoscopy and colonoscopy were done with the findings of a large hiatal hernia and diverticulosis, but without evidence of acute bleed. It was felt that most likely etiology was Ward ulcer-like lesion associated with hiatal hernia causing chronic low-grade blood loss; however, given the severity of the patient's iron-deficiency, capsule endoscopy was also done and results are pending at this time to evaluate for possible small-bowel lesion. At this point, the patient is eating well, is considerably more alert, and is tolerating her regimen well. She did develop evidence of persistent bradycardia and after evaluation by Dr. Juan Patino of cardiology, it was elected to discontinue her beta-julianna, but continue her amiodarone for rhythm control. The patient was obviously taken off her Eliquis and aspirin secondary to the blood loss, but without evidence of acute lesion at this point and with guaiac-negative stools while in the hospital. The Eliquis and aspirin will be resumed for treatment of her peripheral arterial disease and her atrial fibrillation. Ramipril is held to determine if she still requires antihypertensive therapy. The patient will be seen as an outpatient in the office and will resume her prior treatment except as described above. Discharge Medications: Current medications will include aspirin 81 mg daily, Combigan one drop both eyes b.i.d., Azopt one drop in left eye t.i.d., Xalatan one drop both eyes nightly, nitrofurantoin 50 mg q.8 hours for additional 3 days, vitamin B12 500 mcg daily, amiodarone 200 mg daily, Eliquis 5 mg b.i.d., Lipitor 10 mg nightly, vitamin D3 2000 units daily, docusate 100 mg q.12 hours, Cymbalta 20 mg daily, Zetia 10 mg nightly, levothyroxine 75 mcg daily, multivitamins daily, pantoprazole 40 mg daily, and Januvia 25 mg daily. Marlon Bauman M.D. DR: NAETTE JOB#: [id number] CC: ALEX
--- NOTE | 2017-04-19 08:31 | Procedure Note ---
DATE OF PROCEDURE: 04/17/2017 SURGEON: Roger Dockery M.D. PROCEDURE: Capsule endoscopy. INDICATION: Anemia. Reason for Procedure: The procedure, risks, benefits, and possible consequences, including hemorrhage, aspiration, perforation and infection, and alternative treatments, were explained to the patient/legal guardian by Dr. Roger Dockery and the patient/legal guardian understood and accepted these risks. Description Of Procedure: After informed consent was obtained and the patient swallowed the camera, the camera entered the stomach and spent about 39 minutes in the stomach before entering the duodenum. Capsule spent 4 hours and 12 minutes in the duodenum before entering the colon. Quality of prep was fair. The patient had one small duodenal polyp in the proximal duodenum. No obvious other pathology was seen. No obvious blood seen in the duodenum or in the rest of the small intestine. No obvious 00:48 AVM, polyps, or tumor were seen. SUMMARY OF FINDINGS: 1. Fair prep capsule endoscopy. 2. Capsule spent 4 hours and 12 minutes in the small bowel and entered the colon at the end of the study. 3. One duodenal polyp, see above for detail. Recommendations: Follow Dr. Brunner for further recommendation for this patient. I want to thank, Dr. Eduar Brunner, for this kind referral. Roger Dockery M.D. DR: YAMILETH JOB#: [id number] CC: Eduar Brunner M.D.; Fax#: [phone]
== END 2017-04-18 13:30 | disposition home or self-care (01) | DRG 377 ==
LOC: EMR 14:03 → 2E 14:06 → EDBEDREQ 14:19
PROC: 30233N1 Transfusion of Nonautologous Red Blood Cells into Peripheral Vein, Percutaneous Approach (ICD-10-PCS; principal; 2017-04-13)
PROC: 0DB98ZX Excision of Duodenum, Via Natural or Artificial Opening Endoscopic, Diagnostic (ICD-10-PCS; 2017-04-16 12:03)
PROC: 0DB68ZX Excision of Stomach, Via Natural or Artificial Opening Endoscopic, Diagnostic (ICD-10-PCS; 2017-04-16 12:03)
PROC: 0DJD8ZZ Inspection of Lower Intestinal Tract, Via Natural or Artificial Opening Endoscopic (ICD-10-PCS; 2017-04-16 12:03)
PROC: 0DJ07ZZ Inspection of Upper Intestinal Tract, Via Natural or Artificial Opening (ICD-10-PCS; 2017-04-17)
DX: K92.2 Gastrointestinal hemorrhage, unspecified (principal); G93.41 Metabolic encephalopathy; N17.9 Acute kidney failure, unspecified; N39.0 Urinary tract infection, site not specified; I50.32 Chronic diastolic (congestive) heart failure; K74.60 Unspecified cirrhosis of liver; Z66 Do not resuscitate; D50.0 Iron deficiency anemia secondary to blood loss (chronic); I25.10 Atherosclerotic heart disease of native coronary artery without angina pectoris; I48.0 Paroxysmal atrial fibrillation; E78.5 Hyperlipidemia, unspecified; E11.51 Type 2 diabetes mellitus with diabetic peripheral angiopathy without gangrene; E03.9 Hypothyroidism, unspecified; K57.30 Diverticulosis of large intestine without perforation or abscess without bleeding; K31.7 Polyp of stomach and duodenum; K21.9 Gastro-esophageal reflux disease without esophagitis; M81.0 Age-related osteoporosis without current pathological fracture; I11.0 Hypertensive heart disease with heart failure; H40.9 Unspecified glaucoma; K59.00 Constipation, unspecified; K44.9 Diaphragmatic hernia without obstruction or gangrene; E87.6 Hypokalemia; H91.13 Presbycusis, bilateral; R00.1 Bradycardia, unspecified; B96.20 Unspecified Escherichia coli [E. coli] as the cause of diseases classified elsewhere; Z89.512 Acquired absence of left leg below knee; Z95.2 Presence of prosthetic heart valve; Z87.891 Personal history of nicotine dependence; Z86.73 Personal history of transient ischemic attack (TIA), and cerebral infarction without residual deficits; T44.7X5A Adverse effect of beta-adrenoreceptor antagonists, initial encounter; Y92.89 Other specified places as the place of occurrence of the external cause
CPT/HCPCS: 36415; 71010; 80048; 80053; 81003; 82270; 83070; 83615; 84439; 84443; 84484; 85007; 85025; 85610; 85730; 86850; 86900; 86901; 86920; 87081; 87086; 87181; 93005; 93926; 94003; 94150; 99291; J2250; J3490

== ENCOUNTER 2017-09-27 10:00 | Outpatient (RCR) | payer MEDICARE, BC ==
[~2017-09-27 10:00] MED LIST changes: +ASPIR 8181 MG ORAL; +AZOPT10 ML OP; +COMBIGAN EYE DRO5 ML OP; +LATANOPROST2.5 ML BOTH EYES; +MACRODANTIN50 MG ORAL; +VITAMIN B-12500 MCG ORAL
== END 2017-10-03 | disposition home or self-care (01) ==
LOC: PTY 10:00
DX: R53.1 Weakness (principal); R26.89 Other abnormalities of gait and mobility; Z89.512 Acquired absence of left leg below knee
CPT/HCPCS: 97110; 97116; 97162; G8978; G8979

== ENCOUNTER 2017-10-09 10:15 | Outpatient (RCR) | payer MEDICARE, BC | END 2017-11-03 | disposition home or self-care (01) | LOC: PTY 10:15 | DX: R26.89 Other abnormalities of gait and mobility (principal); R53.1 Weakness; Z89.512 Acquired absence of left leg below knee ==

== ENCOUNTER 2017-11-06 09:15 | Outpatient (RCR) | payer MEDICARE, BC | END 2017-12-03 | disposition home or self-care (01) | LOC: PTY 09:15 | DX: R26.89 Other abnormalities of gait and mobility (principal); R53.1 Weakness; Z89.512 Acquired absence of left leg below knee ==

== ENCOUNTER 2017-12-06 10:00 | Outpatient (RCR) | payer MEDICARE, BC | END 2018-01-03 | disposition home or self-care (01) | LOC: PTY 10:00 | DX: R26.89 Other abnormalities of gait and mobility (principal); Z89.512 Acquired absence of left leg below knee; I69.854 Hemiplegia and hemiparesis following other cerebrovascular disease affecting left non-dominant side ==

== ENCOUNTER 2018-03-15 23:10 | Inpatient (IN) | payer MEDICARE, BC ==
[~2018-03-15] VITALS: Ht 152.4 cm; Wt 57.6 kg
--- NOTE | 2018-03-15 23:34 | Emergency Room Report ---
History of Present Illness General Chief Complaint: Abnormal Labs Source: Patient, Family Member Present Illness HPI This is an 87-year-old female with multiple medical problem. She has a history of diabetes, hypertension, heart failure, aortic stenosis, atrial fibrillation on a liquids. She presents with abnormal lab. 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 She was called to come in for low hemoglobin. I spoke with Dr. Bauman, her primary care doctor. He said that her hemoglobin was 5.3. Patient complaining of generalize weakness and short of breath with exertion. No fever chills but no nausea no vomiting. Bowel movement has been normal. Not black. Similar symptom in the past requiring transfusion. Allergies: Coded Allergies: No Known Allergies (Verified , 03/12/10) Patient History Past Medical History: see triage record, old chart reviewed Past Surgical History: other Pertinent Family History: none Social History: Denies: smoking Now: No Immunizations: other Reviewed Nursing Documentation: PMH: Agreed; PSxH: Agreed Nursing Documentation-PMH Hx Cardiac Problems: Yes Hx Diabetes: Yes - Boarderline diabetic Hx Cancer: No Hx Gastrointestinal Problems: Yes Hx Cerebrovascular Accident: Yes Review of Systems Constitutional: Reports: malaise, weakness Eye: Denies: eye pain, blurred vision ENT: Denies: ear pain, nose congestion, throat swelling Respiratory: Denies: cough, shortness of breath Cardiovascular: Denies: chest pain, palpitations Gastrointestinal: Denies: abdominal pain, diarrhea, nausea, vomiting Musculoskeletal: Denies: back pain, joint pain Skin: Denies: rash Neurological: Denies: headache, numbness Endocrine: Denies: increased thirst, increased urine Hematologic/Lymphatic: Denies: easy bruising All Other Systems: negative except mentioned in HPI Physical Exam Vital Signs Date Time Temp Pulse Resp B/P (MAP) Pulse Ox O2 Delivery O2 Flow Rate FiO2 03/15/18 23:14 98.2 68 16 147/54 96 Room Air 98.2 vitals normal Sp02 EP Interpretation: reviewed, normal General Appearance: no apparent distress, alert, Chronically Ill Head: normocephalic, atraumatic Eyes: bilateral eye PERRL, bilateral eye EOMI, bilateral eye conjunctivae pale ENT: hearing grossly normal, normal pharynx Neck: full range of motion, supple, no meningismus Respiratory: chest non-tender, lungs clear, normal breath sounds Cardiovascular #1: regular rate, rhythm, no murmur Gastrointestinal: normal bowel sounds, non tender, no mass, no organomegaly, no bruit, non-distended Musculoskeletal: back normal, other - prostatic left leg Neurologic: alert, oriented x3 Psychiatric: mood/affect normal Skin: warm/dry Procedures Critical Care Time Critical Care Time Critical care is mandated in this patient who presented with severe anemia requiring blood transfusion. Patient require my urgent intervention to attenuate the risks of metabolic collapse which may lead to cardiovascular collapse and . Critical care time is 35 minutes excluding any reportable procedure. Critical care time included evaluation, multiple reevaluation, looking at old charts, interpreting laboratory and diagnostic data, discussing case with patient and family and consultants, and charting. Medical Decision Making Diagnostic Impression: Primary Impression: Anemia Qualified Codes: D64.9 - Anemia, unspecified ER Course Patient with severe anemia requiring blood transfusion. No evidence of active GI bleeding currently. Will admit for further workup and blood transfusion. Discussed the case with Dr. Marlon Bauman who will admit. Lab Results Impression labs with anemia EKG Diagnostic Results Rate: normal Rhythm: NSR ST Segments: other - NSST changes Rhythm Strip Diag. Results Rhythm Strip Time: 23:51 EP Interpretation: yes Rate: 78 Rhythm: NSR, no PVC's, no ectopy Chest X-Ray Diagnostic Results Chest X-Ray Diagnostic Results : Chest X-Ray Ordered: Yes # of Views/Limited/Complete: 1 View Indication: Shortness of Breath EP Interpretation: Yes Interpretation: no consolidation, no effusion, no pneumothorax, no acute cardiopulmonary disease Impression: No acute disease Electronically Signed by: Antione Dillard MD Last Vital Signs Date Time Temp Pulse Resp B/P (MAP) Pulse Ox O2 Delivery O2 Flow Rate FiO2 03/15/18 23:14 98.2 68 16 147/54 96 Room Air 98.2 Status: improved Disposition: ADMITTED INPATIENT Condition: Serious ANTIONE DILLARD M.D. Mar 15, 2018 23:33
[2018-03-15 23:49] VITALS: BP 134/50
[2018-03-16] VITALS (10 sets, daily range): BP systolic 115–155; BP diastolic 41–89
[2018-03-16 00:19] LABS: ANION GAP 9 mmol/L (5-15); BLOOD UREA NITROGEN 20 mg/dL (7-18); CALCIUM 9.5 MG/DL (8.5-10.1); CARBON DIOXIDE 27 MMOL/L (21-32); CHLORIDE 102 MMOL/L (98-107); CREATININE 1.4 MG/DL (0.55-1.30); SODIUM 138 MMOL/L (136-145)
[2018-03-16 00:31] LABS: HEMATOCRIT 20.4 % (37.0-47.0); MEAN CORPUSCULAR VOLUME 64 FL (80-99); PLATELET COUNT 326 K/UL (150-450); RED BLOOD COUNT 3.19 M/UL (4.20-5.40); RED CELL DISTRIBUTION WIDTH 15.2 % (11.6-14.8)
[2018-03-16 00:39] LABS: INR 1.2 (0.9-1.1)
--- NOTE | 2018-03-16 03:52 | Diagnostic Imaging Report ---
EXAM: XR Chest, 1 View CLINICAL HISTORY: SOB TECHNIQUE: Frontal view of the chest. COMPARISON: April 13, 2017. FINDINGS: Cardiac silhouette is within normal limits allowing for portable technique. Tortuous/ectatic thoracic aorta with atherosclerotic disease. Mild central vascular congestion. Stent graft in the region of the aortic root again noted. Right lung base infiltrate and small effusion. Left lung is relatively clear. Senescent changes. Suspected hiatal hernia. IMPRESSION: Small right effusion and right lung base infiltrate. Mild central vascular congestion.
--- NOTE | 2018-03-16 16:33 | Geriatric Progress Note ---
Subjective Interval Events Patient with increasing SOB x [address] Patino, labs reported with Hgb of 5. Asked to go to ED. Repeat Hgb 6. Admitted for further eval and tx. Transfused 2u prbc overnight. Admits to feeling better. Denies GI sxs. Denies black or bloody stools. Fe studies being done on greentop from ED. PMH: Prior episodes of severe Fe def anemia, suspected due to low grade blood loss due to Ward ulceration of hiatal hernia. MCI/early dementia, vascular, prior ETOH use, consider element of primary degenerative process. HTN Hyperlipidemia. DM II with neuropathy. , s/p transcatheter AVR. Complicated by embolic ischemia RLE, requiring angioplasty. 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 P. a fib. Old OK. Old CVA. Hx prior PUD with hemorrhage, associated with NSAID use. Gallstones. UTIs. Cirrhosis on imaging. B presbycusis. Glaucoma. Given relatively benign sxs with degree of anemia, suspected gradual Fe/blood loss again. Will transfuse one additional unit of prbcs. Initiate Venofer course. Hold Eliquis, ASA. One dose of IV Lasix, resume po Lasix. Discussed with Dr. Patino. Dr. Brunner evaluation pending. Reviewed with patient and son, including additional unit transfusion, course of Venofer. Dictated #[id number] Geriatric Geriatric Last 24 Hour Vital Signs Date Time Temp Pulse Resp B/P (MAP) Pulse Ox O2 Delivery O2 Flow Rate FiO2 03/16/18 12:00 98.8 90 18 155/83 (107) 97 98.8 03/16/18 09:00 Room Air 03/16/18 08:00 97.5 18 147/77 (100) 96 97.5 03/16/18 08:00 87 03/16/18 04:27 Room Air 03/16/18 04:00 97.5 18 146/60 (88) 95 97.5 03/16/18 04:00 69 03/16/18 03:00 98.3 67 18 141/52 98 Room Air 98.3 03/16/18 02:25 67 18 141/52 98 Room Air 03/16/18 02:18 98.3 69 19 98.3 03/16/18 02:18 98.3 69 19 138/41 98 Room Air 98.3 03/16/18 02:03 67 18 149/60 97 Room Air 03/16/18 02:03 98.0 67 18 98.0 03/16/18 00:53 90 16 139/54 97 Room Air 03/15/18 23:49 98.3 88 16 134/50 96 Room Air 98.3 03/15/18 23:14 98.2 68 16 147/54 96 Room Air 98.2 Intake and Output 03/15/18 03/16/18 19:00 07:00 Intake Total 15 ml Balance 15 ml IV Total 15 ml # Voids 3 Laboratory Tests Test 03/15/18 23:30 White Blood Count 7.0 K/UL (4.8-10.8) Red Blood Count 3.19 M/UL (4.20-5.40) L Hemoglobin 6.0 G/DL (12.0-16.0) *L Hematocrit 20.4 % (37.0-47.0) L Mean Corpuscular Volume 64 FL (80-99) L Mean Corpuscular Hemoglobin 18.8 PG (27.0-31.0) L Mean Corpuscular Hemoglobin Concent 29.3 G/DL (32.0-36.0) L Red Cell Distribution Width 15.2 % (11.6-14.8) H Platelet Count 326 K/UL (150-450) Mean Platelet Volume 6.4 FL (6.5-10.1) L Neutrophils (%) (Auto) % (45.0-75.0) Lymphocytes (%) (Auto) % (20.0-45.0) Monocytes (%) (Auto) % (1.0-10.0) Eosinophils (%) (Auto) % (0.0-3.0) Basophils (%) (Auto) % (0.0-2.0) Differential Total Cells Counted 100 Neutrophils % (Manual) 63 % (45-75) Lymphocytes % (Manual) 18 % (20-45) L Monocytes % (Manual) 15 % (1-10) H Eosinophils % (Manual) 3 % (0-3) Basophils % (Manual) 1 % (0-2) Band Neutrophils 0 % (0-8) Platelet Estimate Adequate Platelet Morphology Normal Hypochromasia 4+ Anisocytosis 1+ Microcytosis 3+ Prothrombin Time 12.8 SEC (9.30-11.50) H Prothromb Time International Ratio 1.2 (0.9-1.1) H Activated Partial Thromboplast Time 31 SEC (23-33) Sodium Level 138 MMOL/L (136-145) Potassium Level 4.0 MMOL/L (3.5-5.1) Chloride Level 102 MMOL/L (98-107) Carbon Dioxide Level 27 MMOL/L (21-32) Anion Gap 9 mmol/L (5-15) Blood Urea Nitrogen 20 mg/dL (7-18) H Creatinine 1.4 MG/DL (0.55-1.30) H Estimat Glomerular Filtration Rate mL/min (>60) Glucose Level 122 MG/DL (74-106) H Calcium Level 9.5 MG/DL (8.5-10.1) Current Medications Medications (Trade) Dose Ordered Sig/Esther Route PRN Reason Start Time Stop Time Status Last Admin Dose Admin Atorvastatin Calcium (Lipitor) 10 mg BEDTIME ORAL 03/16/18 21:00 04/15/18 20:59 Brimonidine Tartrate (Alphagan) 1 drop Q8HR LEFT EYE 03/16/18 22:00 04/15/18 21:59 Cyanocobalamin (Vitamin B-12) 1,000 mcg DAILY ORAL 03/17/18 09:00 04/16/18 08:59 Docusate Sodium (Colace) 100 mg TWICE A DAY ORAL 03/16/18 18:00 04/15/18 17:59 Dorzolamide/ Timolol (Cosopt) 1 drop TWICE A DAY LEFT EYE 03/16/18 18:00 04/15/18 17:59 Duloxetine HCl (Cymbalta) 20 mg DAILY ORAL 03/17/18 09:00 04/16/18 08:59 EZETIMIBE (Zetia) 10 mg BEDTIME ORAL 03/16/18 21:00 04/15/18 20:59 Furosemide (Lasix) 20 mg EVERY 12 HOURS ORAL 03/16/18 21:00 04/15/18 20:59 Furosemide (Lasix) 20 mg ONCE IV 03/16/18 16:00 03/16/18 17:00 Iron Sucrose 100 mg/Sodium Chloride 60 ml @ 240 mls/hr BEDTIME IV 03/16/18 21:00 03/20/18 21:14 Latanoprost (Xalatan) 1 drop BEDTIME BOTH EYES 03/16/18 21:00 04/15/18 20:59 Levothyroxine Sodium (Synthroid) 75 mcg DAILY@0630 ORAL 03/17/18 06:30 04/16/18 06:29 Multivitamins Therapeutic (Therapeutic Multivitamin) 1 ea DAILY ORAL 03/17/18 09:00 04/16/18 08:59 Pantoprazole (Protonix) 40 mg EVERY 12 HOURS ORAL 03/16/18 21:00 04/15/18 20:59 Sitagliptin Phosphate (Januvia) 25 mg ACBREAKFAST ORAL 03/17/18 06:30 04/16/18 06:29 Sodium Chloride 1,000 ml @ 10 mls/hr Q24H ONCE IV 03/15/18 23:24 03/16/18 23:23 03/15/18 23:51 Vitamin D (Vitamin D) 2,000 intlu DAILY ORAL 03/17/18 09:00 04/16/18 08:59 Height (Feet): 5 Height (Inches): 0.00 Weight (Pounds): 128 Marlon Bauman MD Mar 16, 2018 16:32
[2018-03-16] MEDS: Docusate 100mg cap ORAL SCH (17:04)
[2018-03-16] MEDS: Cosopt Opth Soln 10 mL Btl LEFT EYE SCH (17:04)
[2018-03-16] MEDS ORDERED: Timolol 0.5% Op Soln 2.5ml LEFT EYE SCH (18:00)
[2018-03-16] MEDS: Brimonidine 0.2% Opth Sol LEFT EYE SCH (21:34)
[2018-03-16] MEDS: Latanoprost 0.005% Opth 2.5ml Soln BOTH EYES SCH (21:34)
[2018-03-16] MEDS: Iron Sucrose 100 MG in NS 55 ML IV SCH (21:36)
[2018-03-17] VITALS: BP 129/72
[2018-03-17 04:00] VITALS: BP 134/58
[2018-03-17] MEDS: Latanoprost 0.005% Opth 2.5ml Soln BOTH EYES SCH (05:47)
[2018-03-17] MEDS: sitaGLIPtin 25mg tab ORAL SCH (05:47)
[2018-03-17] MEDS: Brimonidine 0.2% Opth Sol LEFT EYE SCH ×3 (06:07→21:14)
[2018-03-17 07:54] LABS: BASOPHILS % (AUTO) 1.2 % (0.0-2.0); EOSINOPHILS % (AUTO) 2.6 % (0.0-3.0); HEMATOCRIT 32.4 % (37.0-47.0); HEMOGLOBIN 10.1 G/DL (12.0-16.0); LYMPHOCYTES % (AUTO) 18.4 % (20.0-45.0); MEAN CORPUSCULAR VOLUME 71 FL (80-99); MONOCYTES % (AUTO) 17.2 % (1.0-10.0); NEUTROPHILS % (AUTO) 60.7 % (45.0-75.0); PLATELET COUNT 293 K/UL (150-450); RED BLOOD COUNT 4.58 M/UL (4.20-5.40); RED CELL DISTRIBUTION WIDTH 19.3 % (11.6-14.8); WHITE BLOOD COUNT 6.2 K/UL (4.8-10.8)
[2018-03-17 08:00] VITALS: BP 111/65
[2018-03-17 08:16] LABS: ALANINE AMINOTRANSFERASE 13 U/L (12-78); ALBUMIN 3.4 G/DL (3.4-5.0); ALBUMIN/GLOBULIN RATIO 0.8 (1.0-2.7); ALKALINE PHOSPHATASE 107 U/L (46-116); ANION GAP 10 mmol/L (5-15); ASPARTATE AMINO TRANSFERASE 19 U/L (15-37); BILIRUBIN,TOTAL 0.8 MG/DL (0.2-1.0); BLOOD UREA NITROGEN 16 mg/dL (7-18); CALCIUM 9.9 MG/DL (8.5-10.1); CARBON DIOXIDE 28 MMOL/L (21-32); CHLORIDE 102 MMOL/L (98-107); CREATININE 1.2 MG/DL (0.55-1.30); POTASSIUM 3.4 MMOL/L (3.5-5.1); SODIUM 140 MMOL/L (136-145)
[2018-03-17] MEDS: Multivitamin w/Minerals tab ORAL SCH (08:56)
[2018-03-17] MEDS: Cosopt Opth Soln 10 mL Btl LEFT EYE SCH ×2 (08:56→17:34)
[2018-03-17] MEDS: Vitamin D 1000 IU Tab ORAL SCH (08:56)
[2018-03-17] MEDS: Docusate 100mg cap ORAL SCH ×2 (08:56→17:34)
[2018-03-17] MEDS: Vitamin B-12 500mcg tab ORAL SCH (08:57)
[2018-03-17] MEDS: Amiodarone 200mg tab ORAL SCH (08:57)
[2018-03-17] MEDS ORDERED: Tubing IV Secondary IV ONE (10:48)
[2018-03-17] MEDS ORDERED: NS 275ml ONE (10:48)
--- NOTE | 2018-03-17 11:25 | General Progress Note ---
Assessment/Plan Assessment/Plan GI CONSULT Assessment - h/o anemia and OB (+) 04/22, s/p EGD/Colon/capsule endo at that time - 10-12 cm HH --> Agency to be source of chronic blood loss - No melena or vital sign changes to suggest new source of GIB - both patient and son wish to avoid another GI w/u Recommendations - IV Iron x 3-5 days while inpatient - will need regular outpatient IV iron, perhaps q 2 months - detention PPI and reflux precautions - can re-address GI w/u if fails to respond to above plan Thank you P Myesha Subjective Allergies: Coded Allergies: No Known Allergies (Verified , 03/12/10) Objective Last 24 Hour Vital Signs Date Time Temp Pulse Resp B/P (MAP) Pulse Ox O2 Delivery O2 Flow Rate FiO2 03/17/18 09:00 Room Air 03/17/18 08:00 107 03/17/18 08:00 97.5 93 18 111/65 (80) 96 97.5 03/17/18 04:00 98.6 87 22 134/58 (83) 93 98.6 03/17/18 04:00 82 03/17/18 00:00 78 03/17/18 00:00 97.5 97 22 129/72 (91) 94 97.5 03/16/18 21:00 Room Air 03/16/18 20:00 97.9 100 22 147/89 (108) 95 97.9 03/16/18 20:00 86 03/16/18 16:00 98.5 71 18 139/83 (101) 95 98.5 03/16/18 16:00 72 03/16/18 12:00 98.8 90 18 155/83 (107) 97 98.8 03/16/18 12:00 93 Intake and Output 03/16/18 03/17/18 19:00 07:00 Intake Total 360 ml Balance 360 ml Intake Oral 360 ml # Voids 2 4 Laboratory Tests 03/17/18 06:05: White Blood Count 6.2, Red Blood Count 4.58, Hemoglobin 10.1#L, Hematocrit 32.4# L, Mean Corpuscular Volume 71#L, Mean Corpuscular Hemoglobin 21.9L, Mean Corpuscular Hemoglobin Concent 31.0L, Red Cell Distribution Width 19.3H, Platelet Count 293, Mean Platelet Volume 6.3L, Neutrophils (%) (Auto) 60.7, Lymphocytes (%) (Auto) 18.4L, Monocytes (%) (Auto) 17.2H, Eosinophils (%) (Auto ) 2.6, Basophils (%) (Auto) 1.2, Sodium Level 140, Potassium Level 3.4L, Chloride Level 102, Carbon Dioxide Level 28, Anion Gap 10, Blood Urea Nitrogen 16, Creatinine 1.2, Estimat Glomerular Filtration Rate , Glucose Level 107H, Calcium Level 9.9, Total Bilirubin 0.8, Aspartate Amino Transf (AST/SGOT) 19, Alanine Aminotransferase (ALT/SGPT) 13, Alkaline Phosphatase 107, Total Protein 7.7, Albumin 3.4, Globulin 4.3, Albumin/Globulin Ratio 0.8L Height (Feet): 5 Height (Inches): 0.00 Weight (Pounds): 128 Eduar Brunner MD Mar 17, 2018 11:25
[2018-03-17 12:00] VITALS: BP 118/71
[2018-03-17 16:00] VITALS: BP 108/71
--- NOTE | 2018-03-17 16:15 | Geriatric Progress Note ---
Assessment/Plan Problems: (1) Encephalopathy due to metabolic factor or toxin (2) Hypokalemia (3) Constipation (4) MCI (mild cognitive impairment) with memory loss (5) History of myocardial infarction in adulthood (6) Dyslipidemia (7) Embolic stroke (8) Diabetes type 2, controlled (9) Diabetic neuropathy (10) History of tobacco use (11) Severe calcific aortic valve stenosis (12) History of alcohol use (13) Gastrointestinal bleeding (14) Paroxysmal atrial fibrillation (15) Hypertension (16) Anemia Assessment/Plan Hct now in functional range. Recheck labs for stability. Continue Fe supplementation. A fib, controlled rhythm. Anticoagulants held for likely GI blood loss. Await stool to determine whether Eliquis, ASA can be restarted. Given lack of stool on MiraLax, add Dulcolax if necessary. Hypokalemia supplemented. Rozerem for stabilization of sleep cycle with less risk for delirium. Functionally close to baseline. If stable from GI, cardiac perspectives, consider d/c tomorrow. Reviewed in detail with patient, son. Discussed with: patient, family, hospital staff Subjective Interval Events Patient reports she is feeling better. Asks about medical condition again, reviewed pathophysiology. No cardiac or GI sxs. Per staff eating well, but no b.m. yet. Converted to a fib by this a.m. Rate controlled on monitor. Requests medication for sleep, Rozerem initiated to prevent increased risk of delirium. Labs with Hct 30%, third unit not transfused. K 3.4, oral K initiated. No other sxs reported. Constitutional: Denies: chills, pain, sweats Respiratory: Denies: shortness of breath Cardiovascular: Denies: chest pain, palpitations Gastrointestinal/Abdominal: Denies: abdominal pain, nausea, vomiting Genitourinary: Denies: dysuria Geriatric Geriatric Last 24 Hour Vital Signs Date Time Temp Pulse Resp B/P (MAP) Pulse Ox O2 Delivery O2 Flow Rate FiO2 03/17/18 12:00 87 03/17/18 12:00 97.4 84 18 118/71 (87) 97 97.4 03/17/18 09:00 Room Air 03/17/18 08:00 107 03/17/18 08:00 97.5 93 18 111/65 (80) 96 97.5 03/17/18 04:00 98.6 87 22 134/58 (83) 93 98.6 03/17/18 04:00 82 03/17/18 00:00 78 03/17/18 00:00 97.5 97 22 129/72 (91) 94 97.5 03/16/18 21:00 Room Air 03/16/18 20:00 97.9 100 22 147/89 (108) 95 97.9 03/16/18 20:00 86 03/16/18 16:00 98.5 71 18 139/83 (101) 95 98.5 03/16/18 16:00 72 Intake and Output 03/16/18 03/17/18 19:00 07:00 Intake Total 360 ml Balance 360 ml Intake Oral 360 ml # Voids 2 4 Laboratory Tests Test 03/17/18 06:05 White Blood Count 6.2 K/UL (4.8-10.8) Red Blood Count 4.58 M/UL (4.20-5.40) Hemoglobin 10.1 G/DL (12.0-16.0) #L Hematocrit 32.4 % (37.0-47.0) #L Mean Corpuscular Volume 71 FL (80-99) #L Mean Corpuscular Hemoglobin 21.9 PG (27.0-31.0) L Mean Corpuscular Hemoglobin Concent 31.0 G/DL (32.0-36.0) L Red Cell Distribution Width 19.3 % (11.6-14.8) H Platelet Count 293 K/UL (150-450) Mean Platelet Volume 6.3 FL (6.5-10.1) L Neutrophils (%) (Auto) 60.7 % (45.0-75.0) Lymphocytes (%) (Auto) 18.4 % (20.0-45.0) L Monocytes (%) (Auto) 17.2 % (1.0-10.0) H Eosinophils (%) (Auto) 2.6 % (0.0-3.0) Basophils (%) (Auto) 1.2 % (0.0-2.0) Sodium Level 140 MMOL/L (136-145) Potassium Level 3.4 MMOL/L (3.5-5.1) L Chloride Level 102 MMOL/L (98-107) Carbon Dioxide Level 28 MMOL/L (21-32) Anion Gap 10 mmol/L (5-15) Blood Urea Nitrogen 16 mg/dL (7-18) Creatinine 1.2 MG/DL (0.55-1.30) Estimat Glomerular Filtration Rate mL/min (>60) Glucose Level 107 MG/DL (74-106) H Calcium Level 9.9 MG/DL (8.5-10.1) Total Bilirubin 0.8 MG/DL (0.2-1.0) Aspartate Amino Transf (AST/SGOT) 19 U/L (15-37) Alanine Aminotransferase (ALT/SGPT) 13 U/L (12-78) Alkaline Phosphatase 107 U/L (46-116) Total Protein 7.7 G/DL (6.4-8.2) Albumin 3.4 G/DL (3.4-5.0) Globulin 4.3 g/dL Albumin/Globulin Ratio 0.8 (1.0-2.7) L Current Medications Medications (Trade) Dose Ordered Sig/Esther Route PRN Reason Start Time Stop Time Status Last Admin Dose Admin Amiodarone HCl (Cordarone) 100 mg DAILY ORAL 03/17/18 09:00 04/16/18 08:59 03/17/18 08:57 Atorvastatin Calcium (Lipitor) 10 mg BEDTIME ORAL 03/16/18 21:00 04/15/18 20:59 03/16/18 21:33 Brimonidine Tartrate (Alphagan) 1 drop Q8HR LEFT EYE 03/16/18 22:00 04/15/18 21:59 03/17/18 13:55 Cyanocobalamin (Vitamin B-12) 1,000 mcg DAILY ORAL 03/17/18 09:00 04/16/18 08:59 03/17/18 08:57 Docusate Sodium (Colace) 100 mg TWICE A DAY ORAL 03/16/18 18:00 04/15/18 17:59 03/17/18 08:56 Dorzolamide/ Timolol (Cosopt) 1 drop TWICE A DAY LEFT EYE 03/16/18 18:00 04/15/18 17:59 03/17/18 08:56 Duloxetine HCl (Cymbalta) 20 mg DAILY ORAL 03/17/18 09:00 04/16/18 08:59 03/17/18 08:56 EZETIMIBE (Zetia) 10 mg BEDTIME ORAL 03/16/18 21:00 04/15/18 20:59 03/16/18 21:34 Furosemide (Lasix) 20 mg EVERY 12 HOURS ORAL 03/16/18 21:00 04/15/18 20:59 03/17/18 08:57 Iron Sucrose 100 mg/Sodium Chloride 60 ml @ 240 mls/hr BEDTIME IV 03/16/18 21:00 03/20/18 21:14 03/16/18 21:36 Latanoprost (Xalatan) 1 drop BEDTIME BOTH EYES 03/16/18 21:00 04/15/18 20:59 03/17/18 05:47 Levothyroxine Sodium (Synthroid) 75 mcg DAILY@0630 ORAL 03/17/18 06:30 04/16/18 06:29 03/17/18 05:47 Multivitamins Therapeutic (Therapeutic Multivitamin) 1 ea DAILY ORAL 03/17/18 09:00 04/16/18 08:59 03/17/18 08:56 Pantoprazole (Protonix) 40 mg EVERY 12 HOURS ORAL 03/16/18 21:00 04/15/18 20:59 03/17/18 08:56 Potassium Chloride (K-Dur) 20 meq DAILY ORAL 03/17/18 12:45 04/16/18 12:44 03/17/18 13:55 Sitagliptin Phosphate (Januvia) 25 mg ACBREAKFAST ORAL 03/17/18 06:30 04/16/18 06:29 03/17/18 05:47 Vitamin D (Vitamin D) 2,000 intlu DAILY ORAL 03/17/18 09:00 04/16/18 08:59 03/17/18 08:56 Height (Feet): 5 Height (Inches): 0.00 Weight (Pounds): 128 General Appearance: no apparent distress, alert, non-toxic Head: normocephalic, atraumatic Eyes: bilateral anicteric ENT: normal voice Neck: full range of motion, no mass Respiratory: lungs clear Cardiovascular: irregularly irregular Gastrointestinal: normal bowel sounds, non tender, soft, no mass, no organomegaly, non-distended Musculoskeletal: no calf tenderness, other - stump without edema or irritation. Edema: no edema noted Generalized Neurologic: no new focality Marlon Bauman MD Mar 17, 2018 16:15
--- NOTE | 2018-03-17 18:41 | Cardiology Report ---
APPROVED REPORT EKG Measurement Heart [id number] Sinus rhythm with premature atrial complexes Anteroseptal infarct, age undetermined Abnormal ECG
[2018-03-17 20:00] VITALS: BP 132/75
[2018-03-17] MEDS ORDERED: Bisacodyl EC 5mg tab ORAL SCH (20:00)
[2018-03-17] MEDS ORDERED: Ramelteon 8mg tab (Approved for Delirium use only) ORAL PRN (21:00)
[2018-03-17] MEDS ORDERED: Ramelteon 8mg tab (Approved for Delirium use only) ORAL SCH (21:00)
[2018-03-17] MEDS: Iron Sucrose 100 MG in NS 55 ML IV SCH (21:14)
[2018-03-17] MEDS: Ramelteon 8mg tab (Approved for Delirium use only) ORAL SCH (21:56)
[2018-03-18] VITALS: BP 133/79
[2018-03-18 04:00] VITALS: BP 150/62
[2018-03-18] MEDS: sitaGLIPtin 25mg tab ORAL SCH (05:37)
[2018-03-18] MEDS: Brimonidine 0.2% Opth Sol LEFT EYE SCH ×3 (05:37→21:24)
[2018-03-18 08:00] VITALS: BP 124/69
[2018-03-18 08:34] LABS: BASOPHILS % (AUTO) 1.2 % (0.0-2.0); EOSINOPHILS % (AUTO) 2.1 % (0.0-3.0); HEMATOCRIT 32.6 % (37.0-47.0); HEMOGLOBIN 10.1 G/DL (12.0-16.0); LYMPHOCYTES % (AUTO) 19.1 % (20.0-45.0); MEAN CORPUSCULAR VOLUME 72 FL (80-99); MONOCYTES % (AUTO) 11.6 % (1.0-10.0); PLATELET COUNT 274 K/UL (150-450); RED BLOOD COUNT 4.54 M/UL (4.20-5.40); RED CELL DISTRIBUTION WIDTH 20.5 % (11.6-14.8); WHITE BLOOD COUNT 8.4 K/UL (4.8-10.8)
[2018-03-18] MEDS: Vitamin D 1000 IU Tab ORAL SCH (08:47)
[2018-03-18] MEDS: Docusate 100mg cap ORAL SCH ×2 (08:47→17:31)
[2018-03-18] MEDS: Multivitamin w/Minerals tab ORAL SCH (08:48)
[2018-03-18] MEDS: Cosopt Opth Soln 10 mL Btl LEFT EYE SCH ×2 (08:48→17:31)
[2018-03-18] MEDS: Amiodarone 200mg tab ORAL SCH (08:48)
[2018-03-18] MEDS: Vitamin B-12 500mcg tab ORAL SCH (08:48)
[2018-03-18 09:28] LABS: ANION GAP 10 mmol/L (5-15); BLOOD UREA NITROGEN 22 mg/dL (7-18); CALCIUM 9.2 MG/DL (8.5-10.1); CARBON DIOXIDE 27 MMOL/L (21-32); CHLORIDE 103 MMOL/L (98-107); CREATININE 1.3 MG/DL (0.55-1.30); POTASSIUM 3.9 MMOL/L (3.5-5.1); SODIUM 140 MMOL/L (136-145)
[2018-03-18 12:00] VITALS: BP 108/66
[2018-03-18 16:00] VITALS: BP 108/76
--- NOTE | 2018-03-18 18:24 | Geriatric Progress Note ---
Assessment/Plan Problems: (1) Encephalopathy due to metabolic factor or toxin (2) Hypokalemia (3) Constipation (4) MCI (mild cognitive impairment) with memory loss (5) History of myocardial infarction in adulthood (6) Dyslipidemia (7) Embolic stroke (8) Diabetes type 2, controlled (9) Diabetic neuropathy (10) History of tobacco use (11) Severe calcific aortic valve stenosis (12) History of alcohol use (13) Gastrointestinal bleeding (14) Paroxysmal atrial fibrillation (15) Hypertension (16) Anemia Assessment/Plan No definite evidence of persistent blood loss. Still awaiting stool guaiac to determine safety of reinstituting Eliquis and/or ASA. Continue Venofer for now. Persistent a fib, reviewed with Dr. Patino, who will evaluate and recommend re rhythm control and anticoagulation, given a fib and advanced peripheral arterial insufficiency. Functionally otherwise appears to be back to baseline. Will ask P.T. to help mobilize to w/c. Continue other tx. Once level of anticoagulation/antiplt tx and rhythm control decided, expect d/c to [facility]. Discussed with: patient, hospital staff Subjective Interval Events Patient alert, reports feeling better, with no SOB. Denies chest pain, other discomfort. Staff reports one b.m., sent for OB. Also skin lesion noted. Appears to be eating well. Repeat labs OK. Still in controlled a fib per monitor. Constitutional: Denies: chills, pain, sweats Respiratory: Denies: shortness of breath Cardiovascular: Denies: chest pain, palpitations Gastrointestinal/Abdominal: Denies: abdominal pain, constipation, diarrhea Genitourinary: Denies: dysuria Geriatric Geriatric Last 24 Hour Vital Signs Date Time Temp Pulse Resp B/P (MAP) Pulse Ox O2 Delivery O2 Flow Rate FiO2 03/18/18 16:00 86 03/18/18 12:00 97.6 87 17 108/66 (80) 95 97.6 03/18/18 12:00 86 03/18/18 09:00 Room Air 03/18/18 08:00 97.4 98 18 124/69 (87) 96 97.4 03/18/18 08:00 99 03/18/18 04:00 97.2 67 20 150/62 (91) 96 97.2 03/18/18 04:00 69 8/13/18 00:00 91 03/18/18 00:00 96.8 102 21 133/79 (97) 95 96.8 03/17/18 21:00 Room Air 03/17/18 20:00 93 03/17/18 20:00 97.2 100 21 132/75 (94) 96 97.2 Intake and Output 03/17/18 03/18/18 19:00 07:00 Intake Total 360 ml 120 ml Balance 360 ml 120 ml Intake Oral 360 ml 120 ml # Voids 3 5 # Bowel Movements 2 Laboratory Tests Test 03/18/18 07:44 03/18/18 16:20 White Blood Count 8.4 K/UL (4.8-10.8) Red Blood Count 4.54 M/UL (4.20-5.40) Hemoglobin 10.1 G/DL (12.0-16.0) L Hematocrit 32.6 % (37.0-47.0) L Mean Corpuscular Volume 72 FL (80-99) L Mean Corpuscular Hemoglobin 22.2 PG (27.0-31.0) L Mean Corpuscular Hemoglobin Concent 30.9 G/DL (32.0-36.0) L Red Cell Distribution Width 20.5 % (11.6-14.8) H Platelet Count 274 K/UL (150-450) Mean Platelet Volume 6.2 FL (6.5-10.1) L Neutrophils (%) (Auto) 66.0 % (45.0-75.0) Lymphocytes (%) (Auto) 19.1 % (20.0-45.0) L Monocytes (%) (Auto) 11.6 % (1.0-10.0) H Eosinophils (%) (Auto) 2.1 % (0.0-3.0) Basophils (%) (Auto) 1.2 % (0.0-2.0) Sodium Level 140 MMOL/L (136-145) Potassium Level 3.9 MMOL/L (3.5-5.1) Chloride Level 103 MMOL/L (98-107) Carbon Dioxide Level 27 MMOL/L (21-32) Anion Gap 10 mmol/L (5-15) Blood Urea Nitrogen 22 mg/dL (7-18) H Creatinine 1.3 MG/DL (0.55-1.30) Estimat Glomerular Filtration Rate mL/min (>60) Glucose Level 105 MG/DL (74-106) Calcium Level 9.2 MG/DL (8.5-10.1) Stool Occult Blood Pending Current Medications Medications (Trade) Dose Ordered Sig/Esther Route PRN Reason Start Time Stop Time Status Last Admin Dose Admin Amiodarone HCl (Cordarone) 100 mg DAILY ORAL 03/17/18 09:00 04/16/18 08:59 03/18/18 08:48 Atorvastatin Calcium (Lipitor) 10 mg BEDTIME ORAL 03/16/18 21:00 04/15/18 20:59 03/17/18 21:16 Bisacodyl (Dulcolax) 10 mg DAILYPRN PRN RECTAL Constipation 03/17/18 16:15 04/16/18 16:14 Brimonidine Tartrate (Alphagan) 1 drop Q8HR LEFT EYE 03/16/18 22:00 04/15/18 21:59 03/18/18 13:43 Cyanocobalamin (Vitamin B-12) 1,000 mcg DAILY ORAL 03/17/18 09:00 04/16/18 08:59 03/18/18 08:48 Docusate Sodium (Colace) 100 mg TWICE A DAY ORAL 03/16/18 18:00 04/15/18 17:59 03/18/18 17:31 Dorzolamide/ Timolol (Cosopt) 1 drop TWICE A DAY LEFT EYE 03/16/18 18:00 04/15/18 17:59 03/18/18 17:31 Duloxetine HCl (Cymbalta) 20 mg DAILY ORAL 03/17/18 09:00 04/16/18 08:59 03/18/18 08:47 EZETIMIBE (Zetia) 10 mg BEDTIME ORAL 03/16/18 21:00 04/15/18 20:59 03/17/18 21:16 Furosemide (Lasix) 20 mg EVERY 12 HOURS ORAL 03/16/18 21:00 04/15/18 20:59 03/18/18 08:48 Iron Sucrose 100 mg/Sodium Chloride 60 ml @ 240 mls/hr BEDTIME IV 03/16/18 21:00 03/20/18 21:14 03/17/18 21:14 Latanoprost (Xalatan) 1 drop BEDTIME BOTH EYES 03/16/18 21:00 04/15/18 20:59 03/17/18 05:47 Levothyroxine Sodium (Synthroid) 75 mcg DAILY@0630 ORAL 03/17/18 06:30 04/16/18 06:29 03/18/18 05:37 Multivitamins Therapeutic (Therapeutic Multivitamin) 1 ea DAILY ORAL 03/17/18 09:00 04/16/18 08:59 03/18/18 08:48 Pantoprazole (Protonix) 40 mg EVERY 12 HOURS ORAL 03/16/18 21:00 04/15/18 20:59 03/18/18 08:48 Potassium Chloride (K-Dur) 20 meq DAILY ORAL 03/17/18 12:45 04/16/18 12:44 03/18/18 08:48 Ramelteon (Rozerem) 8 mg QHS ORAL 03/17/18 22:00 04/16/18 21:59 03/17/18 21:56 Sitagliptin Phosphate (Januvia) 25 mg ACBREAKFAST ORAL 03/17/18 06:30 04/16/18 06:29 03/18/18 05:37 Vitamin D (Vitamin D) 2,000 intlu DAILY ORAL 03/17/18 09:00 04/16/18 08:59 03/18/18 08:47 Height (Feet): 5 Height (Inches): 0.00 Weight (Pounds): 128 General Appearance: no apparent distress, alert, non-toxic Head: normocephalic, atraumatic Eyes: bilateral anicteric ENT: normal voice Neck: full range of motion, no mass Respiratory: lungs clear Cardiovascular: irregularly irregular Gastrointestinal: normal bowel sounds, non tender, soft, no mass, no organomegaly Musculoskeletal: no calf tenderness Edema: no edema noted Generalized Neurologic: no new focality Marlon Bauman MD Mar 18, 2018 18:24
--- NOTE | 2018-03-18 19:14 | General Progress Note ---
Assessment/Plan Assessment/Plan Assessment - h/o anemia and OB (+) 04/22, s/p EGD/Colon/capsule endo at that time - 10-12 cm HH --> [place] to be source of chronic blood loss - No melena or vital sign changes to suggest new source of GIB - both patient and son wish to avoid another GI w/u Recommendations - IV Iron x 3-5 days while inpatient - will need regular outpatient IV iron, perhaps q 2 months - [employer] PPI and reflux precautions - can re-address GI w/u if fails to respond to above plan - OK to resume anticoagulation and ASA - observe as inpatient prior to d/c Subjective Allergies: Coded Allergies: No Known Allergies (Verified , 03/12/10) Subjective Feels OK no abdominal pain no melena tolerating PO Objective Last 24 Hour Vital Signs Date Time Temp Pulse Resp B/P (MAP) Pulse Ox O2 Delivery O2 Flow Rate FiO2 03/18/18 16:00 86 03/18/18 16:00 97.4 97 18 108/76 (87) 98 97.4 03/18/18 12:00 97.6 87 17 108/66 (80) 95 97.6 03/18/18 12:00 86 03/18/18 09:00 Room Air 03/18/18 08:00 97.4 98 18 124/69 (87) 96 97.4 03/18/18 08:00 99 03/18/18 04:00 97.2 67 20 150/62 (91) 96 97.2 03/18/18 04:00 69 03/18/18 00:00 91 03/18/18 00:00 96.8 102 21 133/79 (97) 95 96.8 03/17/18 21:00 Room Air 03/17/18 20:00 93 03/17/18 20:00 97.2 100 21 132/75 (94) 96 97.2 Intake and Output 03/17/18 03/18/18 19:00 07:00 Intake Total 360 ml 120 ml Balance 360 ml 120 ml Intake Oral 360 ml 120 ml # Voids 3 5 # Bowel Movements 2 Laboratory Tests 03/18/18 07:44: White Blood Count 8.4, Red Blood Count 4.54, Hemoglobin 10.1L, Hematocrit 32.6L , Mean Corpuscular Volume 72L, Mean Corpuscular Hemoglobin 22.2L, Mean Corpuscular Hemoglobin Concent 30.9L, Red Cell Distribution Width 20.5H, Platelet Count 274, Mean Platelet Volume 6.2L, Neutrophils (%) (Auto) 66.0, Lymphocytes (%) (Auto) 19.1L, Monocytes (%) (Auto) 11.6H, Eosinophils (%) (Auto ) 2.1, Basophils (%) (Auto) 1.2, Sodium Level 140, Potassium Level 3.9, Chloride Level 103, Carbon Dioxide Level 27, Anion Gap 10, Blood Urea Nitrogen 22H, Creatinine 1.3, Estimat Glomerular Filtration Rate , Glucose Level 105, Calcium Level 9.2 03/18/18 16:20: Stool Occult Blood [Pending] Height (Feet): 5 Height (Inches): 0.00 Weight (Pounds): 128 Objective WDWN Elderly woman NCAT supple CTA RRR soft ND NT no edema Eduar Brunner MD Mar 18, 2018 19:14
[2018-03-18 19:34] VITALS: BP 122/62
--- NOTE | 2018-03-18 20:38 | Cardiology Progress Note ---
Assessment/Plan Assessment/Plan full note dictated [id number] noted gi input d/w dr elizondo will start on eliquis as in and out of afib [facility] asa until after stablity ofn eliquis is established for few dasy on iv iron Objective Last 24 Hour Vital Signs Date Time Temp Pulse Resp B/P (MAP) Pulse Ox O2 Delivery O2 Flow Rate FiO2 03/18/18 19:34 98.1 97 20 122/62 (82) 99 98.1 03/18/18 16:00 86 03/18/18 16:00 97.4 97 18 108/76 (87) 98 97.4 03/18/18 12:00 97.6 87 17 108/66 (80) 95 97.6 03/18/18 12:00 86 03/18/18 09:00 Room Air 03/18/18 08:00 97.4 98 18 124/69 (87) 96 97.4 03/18/18 08:00 99 03/18/18 04:00 97.2 67 20 150/62 (91) 96 97.2 03/18/18 04:00 69 03/18/18 00:00 91 03/18/18 00:00 96.8 102 21 133/79 (97) 95 96.8 03/17/18 21:00 Room Air Intake and Output 03/17/18 03/18/18 19:00 07:00 Intake Total 360 ml 120 ml Balance 360 ml 120 ml Intake Oral 360 ml 120 ml # Voids 3 5 # Bowel Movements 2 Laboratory Tests Test 03/18/18 07:44 03/18/18 16:20 White Blood Count 8.4 K/UL (4.8-10.8) Red Blood Count 4.54 M/UL (4.20-5.40) Hemoglobin 10.1 G/DL (12.0-16.0) L Hematocrit 32.6 % (37.0-47.0) L Mean Corpuscular Volume 72 FL (80-99) L Mean Corpuscular Hemoglobin 22.2 PG (27.0-31.0) L Mean Corpuscular Hemoglobin Concent 30.9 G/DL (32.0-36.0) L Red Cell Distribution Width 20.5 % (11.6-14.8) H Platelet Count 274 K/UL (150-450) Mean Platelet Volume 6.2 FL (6.5-10.1) L Neutrophils (%) (Auto) 66.0 % (45.0-75.0) Lymphocytes (%) (Auto) 19.1 % (20.0-45.0) L Monocytes (%) (Auto) 11.6 % (1.0-10.0) H Eosinophils (%) (Auto) 2.1 % (0.0-3.0) Basophils (%) (Auto) 1.2 % (0.0-2.0) Sodium Level 140 MMOL/L (136-145) Potassium Level 3.9 MMOL/L (3.5-5.1) Chloride Level 103 MMOL/L (98-107) Carbon Dioxide Level 27 MMOL/L (21-32) Anion Gap 10 mmol/L (5-15) Blood Urea Nitrogen 22 mg/dL (7-18) H Creatinine 1.3 MG/DL (0.55-1.30) Estimat Glomerular Filtration Rate mL/min (>60) Glucose Level 105 MG/DL (74-106) Calcium Level 9.2 MG/DL (8.5-10.1) Stool Occult Blood Pending Juan Patino MD Mar 18, 2018 20:38
[2018-03-18] MEDS: Latanoprost 0.005% Opth 2.5ml Soln BOTH EYES SCH (21:00)
[2018-03-18] MEDS: Iron Sucrose 100 MG in NS 55 ML IV SCH (21:16)
[2018-03-18] MEDS: Ramelteon 8mg tab (Approved for Delirium use only) ORAL SCH (21:23)
[2018-03-18] MEDS: Eliquis 2.5mg tablet ORAL SCH (21:24)
[2018-03-19] VITALS (7 sets, daily range): BP systolic 108–151; BP diastolic 45–92
[2018-03-19] MEDS: sitaGLIPtin 25mg tab ORAL SCH (06:36)
[2018-03-19] MEDS: Brimonidine 0.2% Opth Sol LEFT EYE SCH ×3 (06:36→21:05)
--- NOTE | 2018-03-19 07:33 | General Progress Note ---
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1 03/18/18 16:00 86 03/18/18 16:00 97.4 97 18 108/76 (87) 98 97.4 03/18/18 12:00 97.6 87 17 108/66 (80) 95 97.6 03/18/18 12:00 86 03/18/18 09:00 Room Air 03/18/18 08:00 97.4 98 18 124/69 (87) 96 97.4 03/18/18 08:00 99 Intake and Output 03/18/18 03/19/18 19:00 07:00 Intake Total 500 ml Balance 500 ml Intake Oral 500 ml # Voids 3 2 # Bowel Movements 1 Laboratory Tests 03/18/18 07:44: White Blood Count 8.4, Red Blood Count 4.54, Hemoglobin 10.1L, Hematocrit 32.6L , Mean Corpuscular Volume 72L, Mean Corpuscular Hemoglobin 22.2L, Mean Corpuscular Hemoglobin Concent 30.9L, Red Cell Distribution Width 20.5H, Platelet Count 274, Mean Platelet Volume 6.2L, Neutrophils (%) (Auto) 66.0, Lymphocytes (%) (Auto) 19.1L, Monocytes (%) (Auto) 11.6H, Eosinophils (%) (Auto ) 2.1, Basophils (%) (Auto) 1.2, Sodium Level 140, Potassium Level 3.9, Chloride Level 103, Carbon Dioxide Level 27, Anion Gap 10, Blood Urea Nitrogen 22H, Creatinine 1.3, Estimat Glomerular Filtration Rate , Glucose Level 105, Calcium Level 9.2 03/18/18 16:20: Stool Occult Blood [Pending] Height (Feet): 5 Height (Inches): 0.00 Weight (Pounds): 128 Objective WDWN Elderly woman NCAT supple CTA RRR soft ND NT no edema Eduar Brunner MD Mar 19, 2018 07:33
[2018-03-19] MEDS: Amiodarone 200mg tab ORAL SCH (09:00)
[2018-03-19] MEDS: Docusate 100mg cap ORAL SCH ×2 (09:23→17:56)
[2018-03-19] MEDS: Eliquis 2.5mg tablet ORAL SCH ×2 (09:26→21:06)
[2018-03-19] MEDS: Vitamin D 1000 IU Tab ORAL SCH (09:26)
[2018-03-19] MEDS: Multivitamin w/Minerals tab ORAL SCH (09:26)
[2018-03-19] MEDS: Vitamin B-12 500mcg tab ORAL SCH (09:27)
[2018-03-19] MEDS: Cosopt Opth Soln 10 mL Btl LEFT EYE SCH ×2 (09:27→17:57)
[2018-03-19 10:38] LABS: BASOPHILS % (AUTO) 0.5 % (0.0-2.0); EOSINOPHILS % (AUTO) 1.4 % (0.0-3.0); HEMATOCRIT 32.5 % (37.0-47.0); HEMOGLOBIN 9.8 G/DL (12.0-16.0); LYMPHOCYTES % (AUTO) 10.7 % (20.0-45.0); MEAN CORPUSCULAR VOLUME 72 FL (80-99); MONOCYTES % (AUTO) 11.8 % (1.0-10.0); NEUTROPHILS % (AUTO) 75.6 % (45.0-75.0); PLATELET COUNT 293 K/UL (150-450); RED BLOOD COUNT 4.49 M/UL (4.20-5.40); RED CELL DISTRIBUTION WIDTH 21.1 % (11.6-14.8); WHITE BLOOD COUNT 10.5 K/UL (4.8-10.8)
--- NOTE | 2018-03-19 10:49 | History and Physical Report ---
DATE OF ADMISSION: 03/16/2018 PATIENT ID: The patient is an 87-year-old woman who presented with 1 week's increasing shortness of breath and dyspnea on exertion, who was seen by Dr. Patino in his office on Sunday (yesterday) at which time, he [facility]. Subsequently in the evening, the patient's hemoglobin returned in the range of 5 g and the patient was contacted and asked to present to the emergency department. HISTORY OF PRESENT ILLNESS: Ms. Clements is a patient with multiple chronic medical problems, but nonetheless has been relatively functionally stable. She had recently moved into a [facility] because of the need for increased personal care and appeared to be clinically stable. She reports in the last week or so, she has become more short of breath and she was seen by Dr. Patino in followup in his office and found to have the abnormal laboratories. Dr. Patino's initial impression was possible exacerbation of congestive heart failure, however, it appears likely given fairly unremarkable chest x-ray done in the emergency department and the patient's laboratories that this is primarily dyspnea associated with high-output failure. The patient's hemoglobin was 6.0 and hematocrit was 20.4% in the emergency room and the MCV was noted to be 64 consistent with significant iron deficiency. The patient reports that she has not had any particular gastrointestinal symptoms and no particular nausea, upset stomach, or abdominal discomfort. She denies changes in her bowel pattern including no evidence of blackish stools or bright red blood in the stool. She reports that other than the excessive shortness of breath and dyspnea on exertion, which had recently occurred, she had no new symptoms and no new aches or pains or functional changes. PAST MEDICAL HISTORY: 1. The patient's past medical history is notable for several prior episodes of significant iron-deficiency anemia thought to be associated with chronic low-grade gastrointestinal blood loss. Previous workup suggested a possible Ward ulceration and a large hiatal hernia although small-bowel lesion was not entirely ruled out. The patient's prior iron deficiency had been as severe as a saturation of 4% and the patient had been treated with intravenous Venofer infusion including outpatient courses. In the distant past, there has been history of peptic ulcer disease with hemorrhage reportedly associated with a course of nonsteroidal anti-inflammatory drugs at that time. 2. The patient has history of hypertension. 3. Hyperlipidemia. 4. Diabetes mellitus type 2 with neuropathy. 5. Aortic stenosis, status post transcatheter aortic valve replacement complicated by embolus to the right lower extremity in the setting of established peripheral arterial disease requiring emergent angioplasty. 6. Recurrent critical right lower extremity ischemia with increasing ischemic pain requiring transarterial invasive procedure in the middle of 2016. 7. 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 8. Paroxysmal atrial fibrillation. 9. Old myocardial infarction. 10. History of old cerebrovascular accident. 11. Gallstones. 12. Cirrhosis on imaging without hepatocellular enzyme abnormalities, but with distant history of heavy alcohol use. 13. Bilateral presbycusis. 14. Glaucoma. 15. Weakness and deconditioning. 16. Mild cognitive impairment versus early dementia primarily thought to be cerebrovascular in etiology with possible components of prior alcohol use and possible primary degenerative process. 17. Bradycardia associated with beta-julianna usage with resultant discontinuation. 18. Recurrent urinary tract infection. MEDICATIONS: The patient's current medications appeared to be pantoprazole 40 mg daily, amiodarone 100 mg daily, Cymbalta 20 mg daily, Eliquis 5 mg b.i.d., Januvia 25 mg daily, levothyroxine 75 mcg daily, Azopt 1 drop to the left eye t.i.d., Combigan 1 drop to the left eye b.i.d., latanoprost 0.005% one drop to both eyes at bedtime, vitamin B12 1000 mcg daily sublingually, vitamin D 2000 units daily, aspirin 81 mg daily, Zetia 10 mg nightly, multivitamins daily, atorvastatin 10 mg nightly, Colace 1 capsule twice a day, tramadol/acetaminophen p.r.n. for pain, gabapentin 100 mg nightly as needed for pain, Lasix 20 mg daily. The patient previously had been on ramipril, Plavix, metoprolol, but these medications have been stopped. There was also question of recent use of Lopressor and prednisolone acetate eyedrops, which appeared to have been discontinued on March 12. ALLERGIES: No known drug allergies. 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 She previously lived in [place] and moved to [place] in 1999 after her left cnula-evx-effd amputation. She has been for over 25 years. Her previously worked in the foreign service and they traveled extensively in the past. The patient smoked for 44 years, one and a half packs per day which was discontinued when her was diagnosed with lung cancer. She has signed a POLST with DNR and DNI status, but requested conventional therapies for acute illness. FAMILY HISTORY: Notable for diabetes mellitus in her mother. Her father was exposed to gas in the World War I and at the age of 47. She has 3 children who reportedly are alive and well. REVIEW OF SYSTEMS: The patient reports that other than her shortness of breath, dyspnea on exertion, and fatigue, she had been feeling her normal self. As stated above, she denied chest pain, palpitations, or other symptoms of cardiac etiology. She denies any cough. She had some exertional wheezing prior to the transfusion. She denies abdominal discomfort including nausea, vomiting, or change in bowel habits. She denies melena or bright red blood. She denies urinary tract symptoms. She is currently functionally incontinent and uses a diaper at home. She denied any discomfort with the left lower extremity stump at the present time and has an ecchymosis in the right pretibial area which she states is associated with trauma due to bed rails. She reports that she has been sleeping adequately. PHYSICAL EXAMINATION: VITAL SIGNS: The patient's blood pressure is 135/83, heart rate is 90 and regular, respiratory rate 18, temperature 98.8, and oxygen saturation 97% room air. GENERAL: The patient is a well-developed, slightly fatigued, elderly woman not in acute distress. Somewhat flat in affect, but then engaging well after she is aroused and participating in discussion about her current medical condition. HEAD AND NECK: Reveals normocephalic and atraumatic skull. Sclerae are anicteric and somewhat pale. The oropharynx is slightly dry. NECK: The neck is without masses and with normal range of motion. CHEST: Reveals distant, but clear breath sounds. No wheezing is appreciated. CARDIAC: Reveals a systolic murmur and borderline bradycardic rate with regular rhythm. ABDOMEN: Reveals normal bowel sounds. It is soft and nontender without masses or organomegaly appreciated. EXTREMITIES: The left lower extremity reveals BKA with no evidence of irritation of the stump at this time. The right lower extremity does not reveal any significant distal edema. NEUROLOGICAL: The patient's mental status compatible with her baseline with probably early dementing illness. She has no evidence of new specific focality. LABORATORY AND DIAGNOSTIC DATA: The patient's laboratory data is remarkable for an initial white count of 7.0, hematocrit of 20.4, MCV of 64, platelet count of 326,000. The INR is 1.2 and PTT is 31. Chemistries reveal sodium 138, potassium 4.0, chloride 102, bicarbonate 27, BUN of 20, creatinine 1.4, glucose 122, and calcium 9.5. Chest x-ray was noted to have tortuous and ectatic thoracic aorta with arteriosclerotic changes, mild central vascular congestion, stent graft in the region of the aortic root, slight right lung base opacity and small effusion, hiatal hernia is suspected. IMPRESSION: The patient presents with significant anemia with marked microcytosis consistent with iron deficiency with gradual loss over extended period of time. This is consistent with her prior presentation of low-grade blood loss from a Ward ulcer and that is certainly a possible etiology. The possibility of peptic ulcer disease or new pathology in the gastrointestinal tract needs to be considered as well. The patient has been transfused 2 units in the site reliability engineer hours and symptomatically feels improved. She will be transfused an additional 1 unit of blood and have laboratories rechecked. Because she does almost certainly have iron deficiency, the patient will be initiated on Venofer infusion as well although iron studies have been ordered on the green top available from the emergency department at this time. Because of her significant anemia and potential aggravation associated with her antiplatelet and anticoagulation, the patient will be seen by Dr. Patino in followup and also by Dr. Eduar Brunner from the gastrointestinal point of view. At the present time, the patient's Eliquis and aspirin will be held until active bleeding is ruled out. Stools for occult blood have been ordered, but none have been obtained as yet this moment. Other than the anemia and the associated symptoms, the patient does not appear to have decompensation of her other chronic problems. She would be placed back on her usual medications and observed. After tomorrow, an attempt may be made to mobilize the patient once again although in recent months, the patient has become much less mobile and has not been able to use a prosthesis or ambulate to a significant degree with a walker and prosthesis. The patient's overall situation was discussed with both the patient and her son who was at bedside. They understand the current situation and agreed with the proposed treatment plan including the further transfusion and the intravenous Venofer supplementation. The patient will be made DNR/DNI as per her prior-stated request, but to receive usual acute therapies which are not heroic. Additional interventions will be considered after the patient's initial response to therapy is evaluated. Marlon Bauman M.D. DR: Meño JOB#: [id number] CC: ALEX
--- NOTE | 2018-03-19 10:51 | Consultation ---
DATE OF CONSULTATION: 03/17/2018 GASTROENTEROLOGY CONSULTATION REPORT CHIEF COMPLAINT: I was asked to see this patient by Dr. Marlon Bauman for evaluation of severe anemia. HISTORY OF PRESENT ILLNESS: The patient is a pleasant 87-year-old white woman, who comes in with shortness of breath and severe anemia. The patient has been transfused and has received some iron infusion and it feels much better now. The patient was seen in April of last year for anemia, although the microcytosis was not evident at that time. She underwent an endoscopy, which showed 10 to 12 cm hiatal hernia and otherwise negative biopsies. She also underwent a colonoscopy with terminal ileum evaluation, which was negative. Subsequently, she also had a capsule endoscopy, which was unrevealing. The etiology of her bleeding, heme-positive stools, and anemia was therefore felt to be a large hiatal hernia with intermittent ulcers. She was advised to receive iron infusions as an outpatient. According to the son, the patient received some iron infusions, but subsequently did not followthrough anymore. She now is more severely microcytic and anemic. She denies any upper gastrointestinal symptoms or lower gastrointestinal symptoms and both the patient and the son wish not to do any further endoscopic intervention at this time. PAST MEDICAL HISTORY: Remarkable for history of anemia, hypertension, hyperlipidemia, hiatal hernia, diabetes, aortic stenosis, status post TAVR procedure, history of right lower extremity embolic event, history of paroxysmal atrial fibrillation, stroke, heart attack, peptic ulcer disease, gallstones, urinary tract infection, cirrhosis, and glaucoma. MEDICATIONS: See the chart list for details. SOCIAL HISTORY: The patient resides in a [facility] and her son looks after her affairs. She does not smoke or drink. FAMILY HISTORY: Noncontributory. REVIEW OF SYSTEMS: Otherwise negative. PHYSICAL EXAMINATION: GENERAL: A pleasant, thin elderly woman, seen in her room. HEENT: Normocephalic and atraumatic. Sclerae anicteric. Oropharynx clear. NECK: Supple. CHEST: Clear to auscultation. CARDIOVASCULAR: Regular rate. ABDOMEN: Soft. EXTREMITIES: Revealed no edema. LABORATORY DATA: Noted. ASSESSMENT: This patient presents with recurrent anemia, which is likely due to her large hiatal hernia, which was seen last year. The workup was only about a year ago and repeat gastrointestinal evaluation is not likely to provide any new findings. The patient and her son both also want nonaggressive evaluation. Therefore, this episode of bleeding will be presumed to be due to the same process as last year. There is no reports of melena or vital sign . As such, the patient should be treated aggressively with iron infusions and it is likely that her bone marrow will replenish her blood volume. The patient will likely require long-term iron infusions perhaps every other month to maintain her blood count. Proton pump inhibitors should also be given on a long-term basis to protect against acid contribution to the erosions and ulcers. RECOMMENDATIONS: Per above discussion and per orders written in the chart. Thank you for asking me to participate in the care of this patient. Eduar Brunner M.D. DR: Valerie JOB#: [id number] CC:
[2018-03-19 11:17] LABS: ALANINE AMINOTRANSFERASE 15 U/L (12-78); ALBUMIN 3.1 G/DL (3.4-5.0); ALBUMIN/GLOBULIN RATIO 0.8 (1.0-2.7); ALKALINE PHOSPHATASE 105 U/L (46-116); ANION GAP 5 mmol/L (5-15); ASPARTATE AMINO TRANSFERASE 15 U/L (15-37); BILIRUBIN,TOTAL 0.5 MG/DL (0.2-1.0); BLOOD UREA NITROGEN 25 mg/dL (7-18); CALCIUM 9.2 MG/DL (8.5-10.1); CARBON DIOXIDE 28 MMOL/L (21-32); CHLORIDE 103 MMOL/L (98-107); CREATININE 1.3 MG/DL (0.55-1.30); POTASSIUM 3.4 MMOL/L (3.5-5.1); SODIUM 136 MMOL/L (136-145)
--- NOTE | 2018-03-19 13:23 | Cardiology Progress Note ---
Assessment/Plan Assessment/Plan anemia iron def paf pvd scp perct intervention dm htn i started eliquis last nite today ob stool + on po diuretic as before asa to bee resume in a few day if no increase in gi b on the eliqusi Subjective Cardiovascular: Denies: chest pain, irregular heart rate, lightheadedness Respiratory: Denies: shortness of breath Gastrointestinal/Abdominal: Denies: abdominal pain Genitourinary: Denies: burning Objective Last 24 Hour Vital Signs Date Time Temp Pulse Resp B/P (MAP) Pulse Ox O2 Delivery O2 Flow Rate FiO2 03/19/18 12:00 97.0 80 18 110/57 (74) 97 97.0 03/19/18 09:21 104 108/45 (66) 03/19/18 09:00 Room Air 03/19/18 08:00 97.0 80 18 110/57 (74) 97 97.0 03/19/18 07:41 97 03/19/18 04:00 98.3 99 20 118/58 (78) 96 98.3 03/19/18 04:00 91 03/19/18 00:00 96.9 96 18 109/61 (77) 97 96.9 03/19/18 00:00 83 03/18/18 21:00 Room Air 03/18/18 20:00 86 03/18/18 19:34 98.1 97 20 122/62 (82) 99 98.1 03/18/18 16:00 86 03/18/18 16:00 97.4 97 18 108/76 (87) 98 97.4 General Appearance: no apparent distress, alert Neck: supple Cardiovascular: normal rate, regular rhythm Respiratory/Chest: crackles/rales Abdomen: normal bowel sounds, non tender, soft Extremities: no swelling Intake and Output 03/18/18 03/19/18 19:00 07:00 Intake Total 500 ml Balance 500 ml Intake Oral 500 ml # Voids 3 2 # Bowel Movements 1 Laboratory Tests Test 03/18/18 16:20 03/19/18 09:50 Stool Occult Blood Positive (NEGATIVE) White Blood Count 10.5 K/UL (4.8-10.8) Red Blood Count 4.49 M/UL (4.20-5.40) Hemoglobin 9.8 G/DL (12.0-16.0) L Hematocrit 32.5 % (37.0-47.0) L Mean Corpuscular Volume 72 FL (80-99) L Mean Corpuscular Hemoglobin 21.8 PG (27.0-31.0) L Mean Corpuscular Hemoglobin Concent 30.2 G/DL (32.0-36.0) L Red Cell Distribution Width 21.1 % (11.6-14.8) H Platelet Count 293 K/UL (150-450) Mean Platelet Volume 6.9 FL (6.5-10.1) Neutrophils (%) (Auto) 75.6 % (45.0-75.0) H Lymphocytes (%) (Auto) 10.7 % (20.0-45.0) L Monocytes (%) (Auto) 11.8 % (1.0-10.0) H Eosinophils (%) (Auto) 1.4 % (0.0-3.0) Basophils (%) (Auto) 0.5 % (0.0-2.0) Sodium Level 136 MMOL/L (136-145) Potassium Level 3.4 MMOL/L (3.5-5.1) L Chloride Level 103 MMOL/L (98-107) Carbon Dioxide Level 28 MMOL/L (21-32) Anion Gap 5 mmol/L (5-15) Blood Urea Nitrogen 25 mg/dL (7-18) H Creatinine 1.3 MG/DL (0.55-1.30) Estimat Glomerular Filtration Rate mL/min (>60) Glucose Level 148 MG/DL (74-106) H Calcium Level 9.2 MG/DL (8.5-10.1) Magnesium Level 1.6 MG/DL (1.8-2.4) L Total Bilirubin 0.5 MG/DL (0.2-1.0) Aspartate Amino Transf (AST/SGOT) 15 U/L (15-37) Alanine Aminotransferase (ALT/SGPT) 15 U/L (12-78) Alkaline Phosphatase 105 U/L (46-116) Total Protein 7.1 G/DL (6.4-8.2) Albumin 3.1 G/DL (3.4-5.0) L Globulin 4.0 g/dL Albumin/Globulin Ratio 0.8 (1.0-2.7) L Hepatitis C Antibody Pending Hepatitis C RNA (PCR) IUs/ml Pending Hepatitis C RNA (PCR) log IUs/ml Pending Hepatitis C Genotype Pending Juan Patino MD Mar 19, 2018 13:23
--- NOTE | 2018-03-19 16:52 | Geriatric Progress Note ---
Assessment/Plan Problems: (1) Encephalopathy due to metabolic factor or toxin (2) Hypokalemia (3) Constipation (4) MCI (mild cognitive impairment) with memory loss (5) History of myocardial infarction in adulthood (6) Dyslipidemia (7) Embolic stroke (8) Diabetes type 2, controlled (9) Diabetic neuropathy (10) History of tobacco use (11) Severe calcific aortic valve stenosis (12) History of alcohol use (13) Gastrointestinal bleeding (14) Paroxysmal atrial fibrillation (15) Hypertension (16) Anemia Assessment/Plan Patient appears to be clinically stabilizing. However, given guaiac + stools and reinstitution of Eliquis and ASA, will need to be watched closely and receive a full course of Venofer. Discussed with patient and son, they concur with transfer to SNF for lab monitoring, Venofer and observation before returning to [facility]. Discussed with d/c planning. Continue current approach. Dictated #[id number]. Discussed with: patient, family, hospital staff Subjective Interval Events Patient feels well with no specific c/o. Eating well, no further b.m. today. First stool for OB was +. Patient started on Eliquis per Dr. Patino with intent to add ASA if no evidence of brisk bleeding. Labs stable without further drop in Hct. Constitutional: Denies: chills, pain, sweats Respiratory: Denies: shortness of breath Cardiovascular: Denies: chest pain, palpitations Gastrointestinal/Abdominal: Denies: abdominal pain Genitourinary: Denies: dysuria Geriatric Geriatric Last 24 Hour Vital Signs Date Time Temp Pulse Resp B/P (MAP) Pulse Ox O2 Delivery O2 Flow Rate FiO2 03/19/18 16:00 97.0 86 18 151/92 (111) 96 97.0 03/19/18 12:00 97.0 80 18 110/57 (74) 97 97.0 03/19/18 11:46 91 03/19/18 09:21 104 108/45 (66) 03/19/18 09:00 Room Air 03/19/18 08:00 97.0 80 18 110/57 (74) 97 97.0 03/19/18 07:41 97 03/19/18 04:00 98.3 99 20 118/58 (78) 96 98.3 03/19/18 04:00 91 03/19/18 00:00 96.9 96 18 109/61 (77) 97 96.9 03/19/18 00:00 83 03/18/18 21:00 Room Air 03/18/18 20:00 86 03/18/18 19:34 98.1 97 20 122/62 (82) 99 98.1 Intake and Output 03/18/18 03/19/18 19:00 07:00 Intake Total 500 ml Balance 500 ml Intake Oral 500 ml # Voids 3 2 # Bowel Movements 1 Laboratory Tests Test 03/19/18 09:50 White Blood Count 10.5 K/UL (4.8-10.8) Red Blood Count 4.49 M/UL (4.20-5.40) Hemoglobin 9.8 G/DL (12.0-16.0) L Hematocrit 32.5 % (37.0-47.0) L Mean Corpuscular Volume 72 FL (80-99) L Mean Corpuscular Hemoglobin 21.8 PG (27.0-31.0) L Mean Corpuscular Hemoglobin Concent 30.2 G/DL (32.0-36.0) L Red Cell Distribution Width 21.1 % (11.6-14.8) H Platelet Count 293 K/UL (150-450) Mean Platelet Volume 6.9 FL (6.5-10.1) Neutrophils (%) (Auto) 75.6 % (45.0-75.0) H Lymphocytes (%) (Auto) 10.7 % (20.0-45.0) L Monocytes (%) (Auto) 11.8 % (1.0-10.0) H Eosinophils (%) (Auto) 1.4 % (0.0-3.0) Basophils (%) (Auto) 0.5 % (0.0-2.0) Sodium Level 136 MMOL/L (136-145) Potassium Level 3.4 MMOL/L (3.5-5.1) L Chloride Level 103 MMOL/L (98-107) Carbon Dioxide Level 28 MMOL/L (21-32) Anion Gap 5 mmol/L (5-15) Blood Urea Nitrogen 25 mg/dL (7-18) H Creatinine 1.3 MG/DL (0.55-1.30) Estimat Glomerular Filtration Rate mL/min (>60) Glucose Level 148 MG/DL (74-106) H Calcium Level 9.2 MG/DL (8.5-10.1) Magnesium Level 1.6 MG/DL (1.8-2.4) L Total Bilirubin 0.5 MG/DL (0.2-1.0) Aspartate Amino Transf (AST/SGOT) 15 U/L (15-37) Alanine Aminotransferase (ALT/SGPT) 15 U/L (12-78) Alkaline Phosphatase 105 U/L (46-116) Total Protein 7.1 G/DL (6.4-8.2) Albumin 3.1 G/DL (3.4-5.0) L Globulin 4.0 g/dL Albumin/Globulin Ratio 0.8 (1.0-2.7) L Hepatitis C Antibody Pending Hepatitis C RNA (PCR) IUs/ml Pending Hepatitis C RNA (PCR) log IUs/ml Pending Hepatitis C Genotype Pending Current Medications Medications (Trade) Dose Ordered Sig/Esther Route PRN Reason Start Time Stop Time Status Last Admin Dose Admin Amiodarone HCl (Cordarone) 100 mg DAILY ORAL 03/17/18 09:00 04/16/18 08:59 03/18/18 08:48 Apixaban (Eliquis) 2.5 mg Q12HR ORAL 03/18/18 21:00 04/17/18 20:59 03/19/18 09:26 Atorvastatin Calcium (Lipitor) 10 mg BEDTIME ORAL 03/16/18 21:00 04/15/18 20:59 03/18/18 21:24 Bisacodyl (Dulcolax) 10 mg DAILYPRN PRN RECTAL Constipation 03/17/18 16:15 04/16/18 16:14 Brimonidine Tartrate (Alphagan) 1 drop Q8HR LEFT EYE 03/16/18 22:00 04/15/18 21:59 03/19/18 14:28 Cyanocobalamin (Vitamin B-12) 1,000 mcg DAILY ORAL 03/17/18 09:00 04/16/18 08:59 03/19/18 09:27 Docusate Sodium (Colace) 100 mg TWICE A DAY ORAL 03/16/18 18:00 04/15/18 17:59 03/19/18 09:23 Dorzolamide/ Timolol (Cosopt) 1 drop TWICE A DAY LEFT EYE 03/16/18 18:00 04/15/18 17:59 03/19/18 09:27 Duloxetine HCl (Cymbalta) 20 mg DAILY ORAL 03/17/18 09:00 04/16/18 08:59 03/19/18 09:26 EZETIMIBE (Zetia) 10 mg BEDTIME ORAL 03/16/18 21:00 04/15/18 20:59 03/18/18 21:24 Furosemide (Lasix) 20 mg EVERY 12 HOURS ORAL 03/16/18 21:00 04/15/18 20:59 03/19/18 11:08 Iron Sucrose 100 mg/Sodium Chloride 60 ml @ 240 mls/hr BEDTIME IV 03/16/18 21:00 03/20/18 21:14 03/18/18 21:16 Latanoprost (Xalatan) 1 drop BEDTIME BOTH EYES 03/16/18 21:00 04/15/18 20:59 03/17/18 05:47 Levothyroxine Sodium (Synthroid) 75 mcg DAILY@0630 ORAL 03/17/18 06:30 04/16/18 06:29 03/19/18 06:36 Multivitamins Therapeutic (Therapeutic Multivitamin) 1 ea DAILY ORAL 03/17/18 09:00 04/16/18 08:59 03/19/18 09:26 Pantoprazole (Protonix) 40 mg EVERY 12 HOURS ORAL 03/16/18 21:00 04/15/18 20:59 03/19/18 09:26 Potassium Chloride (K-Dur) 20 meq DAILY ORAL 03/17/18 12:45 04/16/18 12:44 03/19/18 09:23 Ramelteon (Rozerem) 8 mg QHS ORAL 03/17/18 22:00 04/16/18 21:59 03/18/18 21:23 Sitagliptin Phosphate (Januvia) 25 mg ACBREAKFAST ORAL 03/17/18 06:30 04/16/18 06:29 03/19/18 06:36 Vitamin D (Vitamin D) 2,000 intlu DAILY ORAL 03/17/18 09:00 04/16/18 08:59 03/19/18 09:26 Height (Feet): 5 Height (Inches): 0.00 Weight (Pounds): 128 General Appearance: no apparent distress, alert, non-toxic Head: normocephalic, atraumatic Eyes: bilateral anicteric ENT: normal voice Neck: full range of motion, no mass Respiratory: lungs clear Cardiovascular: irregularly irregular Gastrointestinal: normal bowel sounds, non tender, soft, no mass, no organomegaly Musculoskeletal: no calf tenderness Edema: no edema noted Generalized Neurologic: no new focality Marlon Bauman MD Mar 19, 2018 16:52
[2018-03-19] MEDS ORDERED: PROTONIX40 MG ORAL (16:59)
[2018-03-19] MEDS ORDERED: VENOFER100 MG/5 M IV (16:59)
[2018-03-19] MEDS ORDERED: ROZEREM8 MG ORAL (16:59)
[2018-03-19] MEDS ORDERED: FUROSEMIDE20 M1 ORAL (16:59)
[2018-03-19] MEDS ORDERED: PACERONE200 MG ORAL (16:59)
[2018-03-19] MEDS ORDERED: POTASSIUM CHLO20 ME1 ORAL (16:59)
[2018-03-19] MEDS ORDERED: BISAC-EVAC10 MG RECTAL (16:59)
--- NOTE | 2018-03-19 19:05 | General Progress Note ---
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 - can re-address GI w/u if fails to respond to above plan - observe on anticoagulation prior to d/c Subjective Allergies: Coded Allergies: No Known Allergies (Verified , 03/12/10) Subjective Feels OK no abdominal pain no melena tolerating PO (+) OB noted Back on Eliquis Objective Last 24 Hour Vital Signs Date Time Temp Pulse Resp B/P (MAP) Pulse Ox O2 Delivery O2 Flow Rate FiO2 03/19/18 16:00 89 03/19/18 16:00 97.0 86 18 151/92 (111) 96 97.0 03/19/18 12:00 97.0 80 18 110/57 (74) 97 97.0 03/19/18 11:46 91 03/19/18 09:21 104 108/45 (66) 03/19/18 09:00 Room Air 03/19/18 08:00 97.0 80 18 110/57 (74) 97 97.0 03/19/18 07:41 97 03/19/18 04:00 98.3 99 20 118/58 (78) 96 98.3 03/19/18 04:00 91 03/19/18 00:00 96.9 96 18 109/61 (77) 97 96.9 03/19/18 00:00 83 03/18/18 21:00 Room Air 03/18/18 20:00 86 03/18/18 19:34 98.1 97 20 122/62 (82) 99 98.1 Intake and Output 03/18/18 03/19/18 19:00 07:00 Intake Total 500 ml Balance 500 ml Intake Oral 500 ml # Voids 3 2 # Bowel Movements 1 Laboratory Tests 03/19/18 09:50: White Blood Count 10.5, Red Blood Count 4.49, Hemoglobin 9.8L, Hematocrit 32.5L , Mean Corpuscular Volume 72L, Mean Corpuscular Hemoglobin 21.8L, Mean Corpuscular Hemoglobin Concent 30.2L, Red Cell Distribution Width 21.1H, Platelet Count 293, Mean Platelet Volume 6.9, Neutrophils (%) (Auto) 75.6H, Lymphocytes (%) (Auto) 10.7L, Monocytes (%) (Auto) 11.8H, Eosinophils (%) (Auto ) 1.4, Basophils (%) (Auto) 0.5, Sodium Level 136, Potassium Level 3.4L, Chloride Level 103, Carbon Dioxide Level 28, Anion Gap 5, Blood Urea Nitrogen 25H, Creatinine 1.3, Estimat Glomerular Filtration Rate , Glucose Level 148H, Calcium Level 9.2, Magnesium Level 1.6L, Total Bilirubin 0.5, Aspartate Amino Transf (AST/SGOT) 15, Alanine Aminotransferase (ALT/SGPT) 15, Alkaline Phosphatase 105, Total Protein 7.1, Albumin 3.1L, Globulin 4.0, Albumin/ Globulin Ratio 0.8L, Hepatitis C Antibody [Pending], Hepatitis C RNA (PCR) IUs/ ml [Pending], Hepatitis C RNA (PCR) log IUs/ml [Pending], Hepatitis C Genotype [ Pending] Height (Feet): 5 Height (Inches): 0.00 Weight (Pounds): 128 Objective WDWN Elderly woman NCAT supple CTA RRR soft ND NT no edema Eduar Brunner MD Mar 19, 2018 19:05
--- NOTE | 2018-03-19 20:02 | Consultation ---
DATE OF CONSULTATION: 03/19/2018 NOTE: INCOMPLETE DICTATION CARDIOLOGY CONSULTATION CONSULTING PHYSICIAN: Juan Patino M.D. REFERRING PHYSICIAN: REASON FOR REFERRAL: Atrial fibrillation with anemia. HISTORY OF PRESENT ILLNESS: This is an elderly female, who is known to me. The patient was recently seen in the office . She had some laboratories were abnormal and was referred to the emergency room. She has been admitted to the hospital under care of Dr. Soares. I was asked to see the patient in followup in light of the fact that she has anemia and GI bleed. Juan Patino M.D. DR: VÍCTOR JOB#: [id number] CC:
--- NOTE | 2018-03-19 21:01 | Consultation ---
DATE OF CONSULTATION: 03/19/2018 CARDIOLOGY CONSULTATION CONSULTING PHYSICIAN: Juan Patino M.D. REFERRING PHYSICIAN: Marlon Bauman M.D. REASON FOR REFERRAL: Atrial fibrillation and anemia. HISTORY OF PRESENT ILLNESS: The patient is an elderly female, who is known to me from prior evaluation from hospitalization. The patient was recently seen in the office because of shortness of breath where a series of labs ordered, were abnormal, was referred to Dr. Bauman who admitted the patient to [facility]. Dr. Bauman asked me to see the patient in light of the fact that she is on anticoagulation and has had some anemia. The patient has had some shortness of breath approximately two weeks prior to this admission and not really walk, is in a wheelchair most of the time. Denies any chest pain or shortness of breath. On waking her up, she uses two pillows at night, it has been increased from one pill before, had some nights that she slept in a sitting position. She has had some episodes of lightheadedness on standing, but not much and no significant palpitation and has had shortness of breath even getting in and out of the wheelchair in light of the fact that she has abnormality of the fact that she looks slightly pale, the patient's labswere sent after [place] subsequently notified the hemoglobin of 6 and directed the patient to Dr. Bauman and eventually to emergency room. Since she has been admitted to the hospital, she has had some episodes of atrial fibrillation back and forth, but otherwise has been stable. The patient was seen by GI, Dr. Brunner who felt that she has had extensive workup previously in 04/2017 and felt that the patient will be okay to resume back on oral anticoagulation and oral antiplatelet as well. PAST MEDICAL HISTORY: Extensive and does include history of aortic stenosis for which she underwent transcatheter aortic valve replacement with [employer]onic Evolut heart valve in 06/2016. 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 ALLERGIES: She has no known drug allergies. SOCIAL HISTORY: She does not smoke at the present time. Does not drink at the present time. She has a history of both of those between 25 to 45 years ago. She lives at a [facility] and [facility] facility at the present time. She has a very supportive family, one of which brought her to my office and subsequently has been involved in her care. Her last cardiac catheterization basically showed nonobstructive coronary disease distal to 10%-20% LAD stenosis was noted at that time. REVIEW OF SYSTEMS: GASTROINTESTINAL: There is no nausea or vomiting. No diarrhea. No bloody or black stools. GENITOURINARY: No burning on urination. No bloody urination. She has some nocturia episodes. CONSTITUTIONAL: No fevers, chills, or night sweats. Not had any weight loss. CARDIAC: As mentioned in the history of present illness. PULMONARY: No wheezing or coughing. PHYSICAL EXAMINATION: GENERAL: Shows to be elderly female, in no respiratory distress. She looks comfortable. VITAL SIGNS: Blood pressure was on 03/18/2018 between 108/66 to 122/62 with a heart rate of 86 to 97 and temperature 98.1 degrees. NECK: Supple. No jugular venous distention. LUNGS: Clear to auscultation and percussion. CARDIAC: Irregularly irregular. No heaves or thrills noted. ABDOMEN: Soft and nontender. Positive bowel sounds. EXTREMITIES: There is no edema on the right side. Left status post amputation. NEUROLOGICAL: She is awake, alert, responsive, in no apparent distress. LABORATORY AND DIAGNOSTIC DATA: Her hemoglobin on 03/18/2018 was 10.1 up from 6.0, on the 03/15/2018, her white count of 8.4 and platelet count of 274. Her sodium is 140, potassium 3.9, chloride 103, bicarbonate 27, BUN 22, creatinine 1.3, and glucose of 105. Calcium is 9.2. Her coagulations at the time of her admission was 1.2. Stool for occult blood was sent, results of which were pending at the time of this evaluation and management. She did have x-rays in the emergency room that showed small right-sided pleural effusion, right lung base infiltrate, and mild central vascular congestion. Her EKG basically shows sinus rhythm. ASSESSMENT AND PLAN: 1. Anemia, source to be determined with history of the same. 2. History of iron deficiency. 3. Status post TAVR. 4. Proximal episodes of atrial fibrillation, on anticoagulation. 5. Peripheral vascular disease, status post percutaneous interventions. 6. Diabetes mellitus. 7. History of embolic stroke. Dr. Bauman, this patient was seen in cardiac consultation. I have reviewed the notation from Dr. Brunner, who indicated the patient had a workup in 04/2016 with negative workup. Her iron deficiency has been a chronic problem. Agree with stool for occult blood has already been sent, the results of which are pending at this time. Dr. Brunner felt that the patient was okay to start anticoagulation and antiplatelet agents. I would recommend starting the patient on Eliquis back up again and observing for few days before adding any aspirin. She should be off of Plavix completely and RN intravenously has been administered while she has been staying in the hospital. Hopefully, she will be able to be ready to discharge rather soon. I will follow the patient up tomorrow and further recommendations as become necessary. Juan Patino M.D. DR: VÍCTOR JOB#: [id number] CC:
[2018-03-19] MEDS: Iron Sucrose 100 MG in NS 55 ML IV SCH (21:05)
[2018-03-19] MEDS: Ramelteon 8mg tab (Approved for Delirium use only) ORAL SCH (21:06)
[2018-03-19] MEDS: Latanoprost 0.005% Opth 2.5ml Soln BOTH EYES SCH (21:44)
[2018-03-20] VITALS: BP 119/60
--- NOTE | 2018-03-20 01:32 | Discharge Summary ---
DATE OF ADMISSION: 03/16/2018 DISCHARGE DIAGNOSES: 1. Shortness breath and dyspnea on exertion likely associated with high output failure secondary to severe iron deficiency anemia. 2. Recurrent iron-deficiency anemia most likely associated with Ward ulceration and large hiatal hernia exacerbated by anticoagulation therapy and antiplatelet therapy because of severe vascular disease. 3. Hypertension. 4. Hyperlipidemia. 5. Diabetes type 2 with neuropathy. 6. Aortic stenosis status post transcatheter aortic valve replacement complicated by embolus to the right lower extremity in the setting of established peripheral arterial disease requiring emergent angioplasty. 7. Recurrent critical right lower extremity ischemia with increasing ischemic pain requiring transarterial invasive procedure in the middle of 2016. 8. Distant history of left lower extremity embolus leading to [id number] amputation with occasional complications, stump ulceration, or prostatic irritation in the past. 9. Paroxysmal atrial fibrillation. 10. Old myocardial infarction. 11. History of old cerebrovascular accident. 12. Gallstones. 13. Cirrhosis on imaging without hepatocellular enzyme abnormalities, but with distant history of heavy alcohol use. 14. Bilateral presbycusis. 15. Glaucoma. 16. Weakness and deconditioning. 17. Mild cognitive impairment versus early dementia primarily thought to be cerebrovascular in etiology with possible components of prior alcohol use and possible primary degenerative process. 18. Bradycardia associated with beta-julianna usage requiring discontinuation. 19. Episodic urinary tract infections. HISTORY OF PRESENT ILLNESS: The patient is an 87-year-old woman, who presented with one week of increasing shortness of breath and dyspnea on exertion. She was evaluated in the sergeant of corrections's office and laboratories were drawn and subsequently returned with a hemoglobin in the range of 5. The patient was asked to present to the emergency department. Details of the history and physical examination are per the dictation of 03/16/2018. HOSPITAL COURSE: The patient was transfused 2 units of packed red blood cells and her hematocrit stabilized at around 30% subsequently. She had an initial MCV of 64, consistent with severe iron deficiency. Iron studies were not obtained prior to transfusion and therefore are not reliably available at the present time, however, given the severe microcytosis and the patient's prior history of normocytosis, the patient is almost certainly severely iron deficient. Therefore, she has been started on a course of Venofer as well to supplement her iron stores. The etiology is thought most likely to be associated with a large hiatal hernia and a Ward ulcer, which has been documented on previous admission when the patient had a similar presentation. In the interim, she has gotten some iron supplementation, but apparently did not continue and was found to have relatively stable laboratories until this presentation. The patient's bleeding risk is exacerbated by the use of Eliquis and aspirin and previously Plavix, although the latter medication has been discontinued, because of paroxysmal atrial fibrillation, history of aortic stenosis with a transcatheter prosthesis placed, and also advanced peripheral arterial disease with episodes of ischemia including the one, which required her left lower extremity BKA. The patient's other laboratory work and overall presentation did not suggest any other specific etiology for her severe anemia and microcytosis. Initially, the patient did not have stools, but the first stool that was returned did display occult blood positive findings in the laboratory. The patient's Eliquis and aspirin were held initially, but after she appeared to stabilize and also developed intermittent atrial fibrillation at times with rapid ventricular response, it was felt she needed to be placed back on the Eliquis and this has been started. Additionally, the plan will be to resume aspirin in several days if the patient's hematocrit remained stable without evidence of a more brisk bleed. Because the patient will need to be watched closely for a period of time and also will need to complete her intravenous Venofer course, after she stabilized, a recommendation was made to have the patient discharged to alf facility for completion of the observation and additional intravenous Venofer. The patient and her son have agreed and at the time of this dictation, discharge planning is attempting to find an appropriate bed for discharge. DISCHARGE MEDICATIONS: At the time of discharge, the patient's medications will include amiodarone 100 mg daily, Dulcolax suppositories p.r.n. daily, Lasix 20 mg q.12 hours, potassium chloride 20 mEq daily, Venofer 100 mg for initial 6 days IV every other day, pantoprazole 40 mg q.12 hours, Rozerem 8 mg at bedtime, Eliquis 2.5 mg b.i.d., Lipitor 10 mg at bedtime, Combigan 1 drop b.i.d. both eyes, Azopt 1 drop 3 t.i.d. to the left eye, vitamin D3 2000 units daily, vitamin B12 500 mcg daily, Cymbalta 20 mg daily, Zetia 10 mg at bedtime, Xalatan one drop both eyes at bedtime, levothyroxine 75 mcg daily, multivitamins with minerals daily, Januvia 25 mg daily, and the Venofer. DISCHARGE INSTRUCTIONS: The patient will be followed up at the alf facility and hopefully subsequently discharged to her [facility] facility. Marlon Bauman M.D. DR: CHRISTOPHER JOB#: [id number] CC: ALEX
[2018-03-20 04:00] VITALS: BP 113/54
[2018-03-20] MEDS: Brimonidine 0.2% Opth Sol LEFT EYE SCH ×2 (05:51→13:04)
[2018-03-20] MEDS: sitaGLIPtin 25mg tab ORAL SCH (05:51)
[2018-03-20 07:44] LABS: HEMATOCRIT 32.6 % (37.0-47.0); MEAN CORPUSCULAR VOLUME 73 FL (80-99); PLATELET COUNT 256 K/UL (150-450); RED BLOOD COUNT 4.49 M/UL (4.20-5.40); RED CELL DISTRIBUTION WIDTH 22.5 % (11.6-14.8); WHITE BLOOD COUNT 7.5 K/UL (4.8-10.8)
[2018-03-20 08:00] VITALS: BP 109/55
[2018-03-20] MEDS: Cosopt Opth Soln 10 mL Btl LEFT EYE SCH (09:29)
[2018-03-20] MEDS: Amiodarone 200mg tab ORAL SCH (09:30)
[2018-03-20] MEDS: Eliquis 2.5mg tablet ORAL SCH (09:30)
[2018-03-20] MEDS: Docusate 100mg cap ORAL SCH (09:30)
[2018-03-20] MEDS: Vitamin B-12 500mcg tab ORAL SCH (09:31)
[2018-03-20] MEDS: Multivitamin w/Minerals tab ORAL SCH (09:31)
[2018-03-20] MEDS: Vitamin D 1000 IU Tab ORAL SCH (09:31)
[2018-03-20 12:00] VITALS: BP 141/67
[2018-03-20] MEDS ORDERED: Magnesium Oxide 400mg tab ORAL ONE (13:00)
[2018-03-20] MEDS ORDERED: Tubing IV Secondary IV ONE (14:34)
--- NOTE | 2018-03-20 23:02 | General Progress Note ---
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 - can re-address GI w/u if fails to respond to above plan - OK for d/c Subjective Allergies: Coded Allergies: No Known Allergies (Verified , 03/12/10) Subjective Feels OK no abdominal pain no melena tolerating PO for discharge today Objective Last 24 Hour Vital Signs Date Time Temp Pulse Resp B/P (MAP) Pulse Ox O2 Delivery O2 Flow Rate FiO2 03/20/18 12:00 86 03/20/18 12:00 97.4 80 20 141/67 (91) 99 97.4 03/20/18 09:00 Room Air 03/20/18 08:00 81 03/20/18 08:00 97.8 94 19 109/55 (73) 96 97.8 03/20/18 04:00 97.7 80 17 113/54 (73) 98 97.7 03/20/18 04:00 83 03/20/18 00:00 97.9 74 20 119/60 (79) 94 97.9 03/20/18 00:00 83 Intake and Output 03/19/18 03/20/18 19:00 07:00 Intake Total 480 ml Output Total 350 ml 300 ml Balance 130 ml -300 ml Intake Oral 480 ml Output Urine Total 350 ml 300 ml Laboratory Tests 03/20/18 06:38: White Blood Count 7.5, Red Blood Count 4.49, Hemoglobin 10.0L, Hematocrit 32.6L , Mean Corpuscular Volume 73L, Mean Corpuscular Hemoglobin 22.2L, Mean Corpuscular Hemoglobin Concent 30.6L, Red Cell Distribution Width 22.5H, Platelet Count 256, Mean Platelet Volume 6.8, Neutrophils (%) (Auto) , Lymphocytes (%) (Auto) , Monocytes (%) (Auto) , Eosinophils (%) (Auto) , Basophils (%) (Auto) , Differential Total Cells Counted 100, Neutrophils % ( Manual) 59, Lymphocytes % (Manual) 17L, Monocytes % (Manual) 20H, Eosinophils % (Manual) 3, Basophils % (Manual) 1, Band Neutrophils 0, Platelet Estimate Adequate, Platelet Morphology Normal, Hypochromasia 3+, Anisocytosis 3+, Microcytosis 2+ Height (Feet): 5 Height (Inches): 0.00 Weight (Pounds): 127 Objective WDWN Elderly woman NCAT supple CTA RRR soft ND NT no edema Eduar Brunner MD Mar 20, 2018 23:02
== END 2018-03-20 14:35 | DRG 811 ==
LOC: EDBEDREQ 23:40 → EMR 23:55 → 2E 03-16 00:23 → EDBEDREQ 03-16 00:34
PROC: 30233N1 Transfusion of Nonautologous Red Blood Cells into Peripheral Vein, Percutaneous Approach (ICD-10-PCS; principal; 2018-03-16)
DX: D50.0 Iron deficiency anemia secondary to blood loss (chronic) (principal); G93.41 Metabolic encephalopathy; F03.90 Unspecified dementia, unspecified severity, without behavioral disturbance, psychotic disturbance, mood disturbance, and anxiety; I25.2 Old myocardial infarction; K74.60 Unspecified cirrhosis of liver; E87.6 Hypokalemia; K59.00 Constipation, unspecified; E78.5 Hyperlipidemia, unspecified; E11.40 Type 2 diabetes mellitus with diabetic neuropathy, unspecified; I48.0 Paroxysmal atrial fibrillation; I10 Essential (primary) hypertension; K25.9 Gastric ulcer, unspecified as acute or chronic, without hemorrhage or perforation; K44.9 Diaphragmatic hernia without obstruction or gangrene; Z66 Do not resuscitate; Z95.2 Presence of prosthetic heart valve; Z89.512 Acquired absence of left leg below knee; Z89.511 Acquired absence of right leg below knee; Z86.73 Personal history of transient ischemic attack (TIA), and cerebral infarction without residual deficits; Z87.440 Personal history of urinary (tract) infections
CPT/HCPCS: 36415; 71045; 80048; 80053; 82270; 82962; 83735; 85007; 85025; 85610; 85730; 86850; 86900; 86901; 86920; 87522; 87902; 93005; J8499

== ENCOUNTER 2019-07-31 12:16 | Outpatient (CLI) | payer MEDICARE, BC ==
[~2019-07-31 12:16] MED LIST changes: +BISAC-EVAC10 MG RECTAL; +FUROSEMIDE20 M1 ORAL; +PACERONE200 MG ORAL; +POTASSIUM CHLO20 ME1 ORAL; +VENOFER100 MG/5 M IV
[2019-07-31 13:18] LABS: ALANINE AMINOTRANSFERASE 15 U/L (12-78); ALBUMIN 3.7 G/DL (3.4-5.0); ALBUMIN/GLOBULIN RATIO 0.9 (1.0-2.7); ALKALINE PHOSPHATASE 134 U/L (46-116); ANION GAP 8 mmol/L (5-15); ASPARTATE AMINO TRANSFERASE 14 U/L (15-37); BILIRUBIN,TOTAL 0.4 MG/DL (0.2-1.0); BLOOD UREA NITROGEN 20 mg/dL (7-18); CALCIUM 9.4 MG/DL (8.5-10.1); CARBON DIOXIDE 28 MMOL/L (21-32); CHLORIDE 104 MMOL/L (98-107); CREATININE 1.4 MG/DL (0.55-1.30); SODIUM 140 MMOL/L (136-145)
== END 2019-07-31 14:16 | disposition home or self-care (01) ==
LOC: VAS 12:16
DX: I73.9 Peripheral vascular disease, unspecified (principal)
CPT/HCPCS: 36415; 80053; 82306; 82607; 83036; 84443; 93926